=== PATIENT | female | born 1930 | race African-American/Black ===

== ENCOUNTER → 2016-04-21 | Outpatient (CLI) | payer MEDICARE, OTHER ==
[~2016-04-21] MED LIST: AML5T PO; BUDE160A3 INH; CITA-30 PO; CLON0.5T PO; CLOP75TA28 PO; FERR325T50 PO; INSUINJ37 SUBCUT; LEVAPOW IN
[2016-04-21 13:09] LABS: DEFINITIVE VIEW TRANSMISSION; Hemoglobin 9.5 g/dL (12.2-16.2); Mean Corpuscular Hemoglobin 28.4 pg (28.0-32.0); Mean Corpuscular Hgb Conc. 32.7 g/dL (32.0-36.0); Mean Corpuscular Volume 86.9 fL (80.0-100.0); Mean Platelet Volume 8.3 fL (7.4-10.4); Platelet Count (auto) 494 10^3/uL (140-450); White Blood Cell 8.8 10^3/uL (4.4-10.8)
[2016-04-21 13:24] LABS: Metamyelocytes % 0; Myelocytes % 0; Promyelocytes % 0; Reactive Lymphocytes 0; Red Cell Distribution Width 23.1 % (11.6-16.0)
[2016-04-21 13:45] LABS: Albumin 3.5 g/dL (3.4-5.0); BUN/Creatinine Ratio 13.7; Bilirubin, Total 0.5 mg/dL (0.2-1.0); Calcium 9.2 mg/dL (8.5-10.1); Potassium 5.1 mmol/L (3.5-5.1); Total Protein 7.7 g/dL (6.4-8.2); Uric Acid 10.5 mg/dL (2.6-6.0)
[2016-04-21 15:58] LABS: Anisocytosis Moderate; Platelet Estimate Increased; Tear Drop Cells FEW
[2016-04-21 15:59] LABS: Ovalocytes MODERATE
== END | disposition home or self-care (01) ==
LOC: LAB 12:12
DX: M25.50 Pain in unspecified joint (principal); M06.9 Rheumatoid arthritis, unspecified; M10.00 Idiopathic gout, unspecified site; I10 Essential (primary) hypertension; D64.9 Anemia, unspecified
CPT/HCPCS: 36415; 80053; 84550; 85007; 85027; 85652; 86141

== ENCOUNTER 2016-11-27 18:48 | Inpatient (IN) | payer MEDICARE, OTHER ==
[~2016-11-27] VITALS: Ht 167.6 cm; Wt 60.4 kg
[~2016-11-27 18:48] MED LIST changes: +FLUC100T PO; +LINE600T PO
[2016-11-27] MEDS ORDERED: SILVER SULFADIAZINE 1 % TOPICAL CREAM 50GM TOP ONE (19:45)
[2016-11-27 20:13] LABS: Basophils # (auto) 0.1 uL; Eosinophils # (auto) 1.1 uL; Hematocrit 22.2 % (36.0-46.0); Hemoglobin 7.5 g/dL (12.2-16.2); Lymphocytes # (auto) 1.2 uL; Lymphocytes % (auto) 9.6 % (10.0-50.0); Mean Corpuscular Hemoglobin 28.3 pg (28.0-32.0); Mean Corpuscular Hgb Conc. 33.8 g/dL (32.0-36.0); Mean Corpuscular Volume 83.7 fL (80.0-100.0); Mean Platelet Volume 7.2 fL (6.9-10.8); Monocytes # (auto) 1.5 uL; Monocytes % (auto) 12.1 % (0.0-12.0); Neutrophils # (auto) 8.3 uL; Neutrophils % (auto) 68.3 % (37.0-80.0); Nucleated Red Blood Cells % 0.1 %; Platelet Count (auto) 664 10^3/uL (140-450); Red Cell Distribution Width 21.6 % (11.8-14.3); White Blood Cell 12.2 10^3/uL (4.4-10.8)
[2016-11-27 20:58] LABS: Anisocytosis Moderate; Platelet Estimate Increased
[2016-11-27 20:59] LABS: Hypochromia Slight; Microcytosis Slight; Ovalocytes MODERATE
[2016-11-27 21:04] LABS: Albumin 2.7 g/dL (3.4-5.0); BUN/Creatinine Ratio 17.5; Bilirubin, Total 0.2 mg/dL (0.2-1.0); Calcium 9.2 mg/dL (8.5-10.1); Potassium 5.1 mmol/L (3.5-5.1); Total Protein 7.4 g/dL (6.4-8.2)
[2016-11-27] MEDS ORDERED: DEXTROSE (50%) 50ML SYRG IV PRN (23:45)
[2016-11-27] MEDS ORDERED: clonazePAM 0.5 MG TAB PO PRN (23:45)
[2016-11-27] MEDS ORDERED: VANCOMYCIN PER PHARMACY 0 MG IV SCH (23:45)
[2016-11-28] VITALS (11 sets, daily range): BP systolic 136–157; BP diastolic 59–68
[2016-11-28] MEDS ORDERED: VANCOMYCIN 1GM/250ML D5W 250 ML IV ONE (00:30)
[2016-11-28] MEDS: ACCU-CHEK COMFORT CURVE STRIP VI SCH ×2 (06:12→11:53)
[2016-11-28 06:17] LABS: Hematocrit 24.7 % (36.0-46.0); Hemoglobin 8.3 g/dL (12.2-16.2); Mean Platelet Volume 7.3 fL (6.9-10.8); Red Cell Distribution Width 19.7 % (11.8-14.3)
[2016-11-28] MEDS: InsuLIN REG 1unit/0.01ml Soln (100units/ml) SC SCH ×2 (06:17→11:53)
[2016-11-28 06:21] LABS: Mean Corpuscular Hgb Conc. 33.5 g/dL (32.0-36.0); Mean Corpuscular Volume 83.7 fL (80.0-100.0); Platelet Count (auto) 571 10^3/uL (140-450); White Blood Cell 13.2 10^3/uL (4.4-10.8)
[2016-11-28 06:31] LABS: Albumin 2.5 g/dL (3.4-5.0); Calcium 9.4 mg/dL (8.5-10.1); Potassium 4.8 mmol/L (3.5-5.1)
[2016-11-28 06:33] LABS: BUN/Creatinine Ratio 18.9
[2016-11-28 06:38] LABS: Bilirubin, Total 0.3 mg/dL (0.2-1.0); Total Protein 6.7 g/dL (6.4-8.2)
[2016-11-28] MEDS ORDERED: FERROUS SULFATE 325 MG TAB PO SCH (08:00)
[2016-11-28 09:32] LABS: Metamyelocytes % 0; Myelocytes % 0; Promyelocytes % 0; Reactive Lymphocytes 0
[2016-11-28 09:37] LABS: Ovalocytes MODERATE
[2016-11-28 09:38] LABS: Anisocytosis Slight; Platelet Estimate Increased; Tear Drop Cells FEW
[2016-11-28] MEDS ORDERED: CITALOPRAM HYDROBR 20 MG TAB PO SCH (10:00)
[2016-11-28] MEDS ORDERED: amLODIPine BESYLATE 5 MG TAB PO SCH (10:00)
[2016-11-28] MEDS ORDERED: LACTULOSE 20Gm/30ML SOLN PO ONE (12:00)
[2016-11-28] MEDS ORDERED: DOXYCYCLINE HYC 100MG/250ML 250 ML IV SCH (12:00)
[2016-11-28] MEDS ORDERED: EPOETIN ALFA 10,000 UNIT/1 ML VIAL SC ONE (13:00)
[2016-11-28] MEDS ORDERED: DOXY-216 PO (13:04)
[2016-11-28] MEDS ORDERED: AMO250C PO (13:04)
[2016-11-28 13:39] LABS: Urine Bilirubin Negative (Negative); Urine Blood Negative /uL (Negative); Urine Color Yellow (Yellow); Urine Glucose Normal (Normal); Urine Ketone Negative (Negative); Urine Nitrite Negative (Negative); Urine RBC 4 /hpf (0 - 4); Urine Squamous Epithelial Cell FEW /hpf (<5); Urine Urobilinogen Normal (Negative); Urine pH 5.5 (5.0-8.0)
[2016-11-28] MEDS ORDERED: AMOXICILLIN TRIHYDRATE 250 MG CAP PO SCH (14:00)
[2016-11-29] MEDS ORDERED: VANCOMYCIN 1GM/250ML D5W 250 ML IV SCH (06:00)
== END 2016-11-28 19:26 | disposition home health service (06) | DRG 812 ==
LOC: ER 18:48 → OVERFLOW 18:49 → CENTRAL 11-28 02:34
PROVIDERS: ADMIT Nurse Practitioner Family; ATTEND Internal Medicine
PROC: 30233N1 Transfusion of Nonautologous Red Blood Cells into Peripheral Vein, Percutaneous Approach (ICD-10-PCS; principal; 2016-11-28)
DX: D64.9 Anemia, unspecified (principal); E44.0 Moderate protein-calorie malnutrition; E11.22 Type 2 diabetes mellitus with diabetic chronic kidney disease; I13.0 Hypertensive heart and chronic kidney disease with heart failure and stage 1 through stage 4 chronic kidney disease, or unspecified chronic kidney disease; I50.9 Heart failure, unspecified; B37.49 Other urogenital candidiasis; D63.8 Anemia in other chronic diseases classified elsewhere; J44.9 Chronic obstructive pulmonary disease, unspecified; F32.9 Major depressive disorder, single episode, unspecified; K59.00 Constipation, unspecified; A49.02 Methicillin resistant Staphylococcus aureus infection, unspecified site; S81.001A Unspecified open wound, right knee, initial encounter; N18.3 Chronic kidney disease, stage 3 (moderate); X58.XXXA Exposure to other specified factors, initial encounter; M19.90 Unspecified osteoarthritis, unspecified site; Z79.51 Long term (current) use of inhaled steroids; Z79.4 Long term (current) use of insulin; Z79.899 Other long term (current) drug therapy; Z80.0 Family history of malignant neoplasm of digestive organs; Z80.1 Family history of malignant neoplasm of trachea, bronchus and lung; Z80.3 Family history of malignant neoplasm of breast; Z80.41 Family history of malignant neoplasm of ovary; Z80.8 Family history of malignant neoplasm of other organs or systems; Z81.8 Family history of other mental and behavioral disorders; Z82.0 Family history of epilepsy and other diseases of the nervous system; Z82.3 Family history of stroke; Z82.49 Family history of ischemic heart disease and other diseases of the circulatory system; Z82.5 Family history of asthma and other chronic lower respiratory diseases; Z82.62 Family history of osteoporosis; Z83.3 Family history of diabetes mellitus; Z68.21 Body mass index [BMI] 21.0-21.9, adult; Y93.89 Activity, other specified; Y92.89 Other specified places as the place of occurrence of the external cause; Y99.8 Other external cause status
CPT/HCPCS: 99285; S9538; 36415; 36430; 80053; 80202; 81001; 82962; 85007; 85025; 85027; 86850; 86900; 86901; 86920; 87077; 87081; 87186; 87205; J0885; J1815; J3490

== ENCOUNTER 2017-02-20 17:39 | Inpatient (IN) | payer MEDICARE, OTHER ==
[~2017-02-20] VITALS: Ht 167.6 cm; Wt 51.0 kg
[~2017-02-20 17:39] MED LIST changes: -BUDE160A3 INH; +CAR125T PO; -CITA-30 PO; +CITA-73 PO; +DOXY-216 PO; -FLUC100T PO; -LEVAPOW IN; -LINE600T PO; +PANT40TA2 PO; +TRAM50TA2 PO
[2017-02-20 19:13] LABS: Basophils # (auto) 0 uL; Basophils % (auto) 0.6 % (0.0-2.0); Eosinophils # (auto) 0 uL; Eosinophils % (auto) 0.5 % (0.0-7.0); Hematocrit 26.5 % (36.0-46.0); Hemoglobin 8.9 g/dL (12.2-16.2); Lymphocytes # (auto) 0.6 uL; Lymphocytes % (auto) 7.8 % (10.0-50.0); Mean Corpuscular Hemoglobin 29.4 pg (28.0-32.0); Mean Corpuscular Hgb Conc. 33.7 g/dL (32.0-36.0); Mean Corpuscular Volume 87.5 fL (80.0-100.0); Monocytes # (auto) 0.9 uL; Neutrophils # (auto) 6.1 uL; Neutrophils % (auto) 79.1 % (37.0-80.0); Nucleated Red Blood Cells % 0.3 %; Platelet Count (auto) 506 10^3/uL (140-450); Red Blood Cells 3.03 10^6/uL (4.0-5.20); White Blood Cell 7.7 10^3/uL (4.4-10.8)
[2017-02-20 19:15] LABS: Red Cell Distribution Width 20.3 % (11.8-14.3)
[2017-02-20 19:25] LABS: Albumin 2.6 g/dL (3.4-5.0); BUN/Creatinine Ratio 30.7; Bilirubin, Total 0.4 mg/dL (0.2-1.0); Calcium 8.9 mg/dL (8.5-10.1); Potassium 4.3 mmol/L (3.5-5.1); Total Protein 7.8 g/dL (6.4-8.2)
[2017-02-20] MEDS ORDERED: SODIUM CHLORIDE 0.9% 1,000 ML IV ONE (20:00)
[2017-02-20 20:21] LABS: INR 1.32 (0.9-1.15); Partial Thromboplastin Time 33.1 sec (22.64-33.71); Prothrombin Time 14.4 sec (9.37-12.3)
[2017-02-20] MEDS ORDERED: ONDANSETRON HCL 4 MG/2 ML VIAL IV ONE (23:30)
[2017-02-20] MEDS ORDERED: ENOXAPARIN SOD 100 MG/1 ML SYRINGE SC ONE (23:30)
[2017-02-20] MEDS ORDERED: MORPHINE SULFATE 4 MG/ML SYR/VIAL IV ONE (23:30)
[2017-02-21] MEDS ORDERED: ACETAMINOPHEN 500 MG TAB PO PRN (03:45)
[2017-02-21] MEDS ORDERED: ONDANSETRON HCL 4 MG/2 ML VIAL IV PRN (03:45)
[2017-02-21 04:58] LABS: Hemoglobin 8.2 g/dL (12.2-16.2); Lymphocytes # (auto) 0.7 uL; Mean Corpuscular Hemoglobin 29.6 pg (28.0-32.0)
[2017-02-21 05:00] LABS: Mean Corpuscular Hgb Conc. 33.7 g/dL (32.0-36.0)
[2017-02-21 05:17] LABS: Basophils # (auto) 0.1 uL; Basophils % (auto) 0.6 % (0.0-2.0); Eosinophils # (auto) 0.1 uL; Eosinophils % (auto) 1.5 % (0.0-7.0); Monocytes # (auto) 1.2 uL; Neutrophils % (auto) 76.9 % (37.0-80.0); Nucleated Red Blood Cells % 0.4 %; White Blood Cell 9.1 10^3/uL (4.4-10.8)
[2017-02-21 05:18] LABS: BUN/Creatinine Ratio 33.3; Calcium 8.7 mg/dL (8.5-10.1); Hematocrit 24.3 % (36.0-46.0); Mean Corpuscular Volume 88.2 fL (80.0-100.0); Platelet Count (auto) 438 10^3/uL (140-450); Potassium 3.8 mmol/L (3.5-5.1); Red Blood Cells 2.76 10^6/uL (4.0-5.20); Red Cell Distribution Width 19.9 % (11.8-14.3)
[2017-02-21] MEDS ORDERED: FUROSEMIDE 40 MG/4 ML VIAL IV ONE (07:45)
[2017-02-21 09:16] LABS: Urine Amorphous Crystal FEW /hpf (None Seen); Urine Bacteria MANY /hpf (None Seen); Urine Blood Negative /uL (Negative); Urine Mucus FEW (None Seen); Urine Specific Gravity 1.016 (1.001-1.035); Urine WBC 2 /hpf (0 - 5)
[2017-02-21] MEDS: amLODIPine BESYLATE 5 MG TAB PO SCH (10:16)
[2017-02-21] MEDS: ASPirin-EC 81 mg tab PO SCH (10:16)
[2017-02-21] MEDS: CARVEDILOL 12.5 MG TAB PO SCH ×2 (10:16→22:30)
[2017-02-21 21:48] LABS: Hematocrit 24.2 % (36.0-46.0); Hemoglobin 8.3 g/dL (12.2-16.2)
[2017-02-22 06:13] LABS: Basophils # (auto) 0 uL; Basophils % (auto) 0.3 % (0.0-2.0); Eosinophils # (auto) 0.1 uL; Hemoglobin 8.1 g/dL (12.2-16.2); Lymphocytes # (auto) 0.6 uL; White Blood Cell 10.1 10^3/uL (4.4-10.8)
[2017-02-22 06:16] LABS: Eosinophils % (auto) 0.9 % (0.0-7.0); Hematocrit 23.6 % (36.0-46.0); Lymphocytes % (auto) 5.7 % (10.0-50.0); Mean Corpuscular Hemoglobin 29.2 pg (28.0-32.0); Mean Corpuscular Hgb Conc. 34.5 g/dL (32.0-36.0); Mean Corpuscular Volume 84.7 fL (80.0-100.0); Monocytes % (auto) 9.9 % (0.0-12.0); Neutrophils # (auto) 8.4 uL; Neutrophils % (auto) 83.2 % (37.0-80.0); Nucleated Red Blood Cells % 0.2 %; Platelet Count (auto) 435 10^3/uL (140-450); Red Blood Cells 2.78 10^6/uL (4.0-5.20)
[2017-02-22 06:42] LABS: Albumin 2.3 g/dL (3.4-5.0); BUN/Creatinine Ratio 29.3; Calcium 8.5 mg/dL (8.5-10.1); Potassium 3.9 mmol/L (3.5-5.1)
[2017-02-22 06:44] LABS: Bilirubin, Total 0.3 mg/dL (0.2-1.0); Red Cell Distribution Width 20.2 % (11.8-14.3)
[2017-02-22] MEDS: FUROSEMIDE 40 MG/4 ML VIAL IV SCH (09:43)
[2017-02-22] MEDS: CARVEDILOL 12.5 MG TAB PO SCH ×2 (09:44→21:04)
[2017-02-22] MEDS: ASPirin-EC 81 mg tab PO SCH (09:44)
[2017-02-22] MEDS: amLODIPine BESYLATE 5 MG TAB PO SCH (09:44)
[2017-02-22] MEDS ORDERED: DEXTROSE (50%) 50ML SYRG IV PRN (13:30)
[2017-02-22] MEDS: SODIUM CHLOR 0.9% PF (SALINE LOCK) 10ML VIAL IV SCH ×2 (14:08→21:04)
[2017-02-22] MEDS: ACCU-CHEK COMFORT CURVE STRIP VI SCH ×2 (17:40→21:18)
[2017-02-22] MEDS: InsuLIN REG 1unit/0.01ml Soln (100units/ml) SC SCH ×2 (17:42→21:17)
[2017-02-22 21:00] VITALS: BP 154/106
[2017-02-22] MEDS: HYDROcodone-ACET 5/325MG TAB PO PRN (21:18)
[2017-02-22 23:40] VITALS: BP 154/106
[2017-02-23 05:27] VITALS: BP 141/58
[2017-02-23] MEDS: SODIUM CHLOR 0.9% PF (SALINE LOCK) 10ML VIAL IV SCH ×3 (05:38→23:25)
[2017-02-23] MEDS: InsuLIN REG 1unit/0.01ml Soln (100units/ml) SC SCH ×4 (05:38→23:29)
[2017-02-23] MEDS: ACCU-CHEK COMFORT CURVE STRIP VI SCH ×4 (05:38→23:28)
[2017-02-23] MEDS: HYDROcodone-ACET 5/325MG TAB PO PRN ×2 (05:39→21:12)
[2017-02-23 07:46] LABS: Basophils % (auto) 0.4 % (0.0-2.0); Eosinophils # (auto) 0.1 uL; Hematocrit 24.3 % (36.0-46.0); Hemoglobin 8.2 g/dL (12.2-16.2); Mean Corpuscular Volume 85.7 fL (80.0-100.0); Monocytes # (auto) 1.1 uL; Neutrophils # (auto) 10.6 uL; Nucleated Red Blood Cells % 0.1 %
[2017-02-23 07:48] LABS: Basophils # (auto) 0.1 uL; Eosinophils % (auto) 0.9 % (0.0-7.0); Lymphocytes # (auto) 0.6 uL; Lymphocytes % (auto) 4.7 % (10.0-50.0); Mean Corpuscular Hemoglobin 28.7 pg (28.0-32.0); Mean Corpuscular Hgb Conc. 33.6 g/dL (32.0-36.0); Monocytes % (auto) 8.5 % (0.0-12.0); Neutrophils % (auto) 85.5 % (37.0-80.0); Platelet Count (auto) 474 10^3/uL (140-450); Red Blood Cells 2.84 10^6/uL (4.0-5.20); Red Cell Distribution Width 19.5 % (11.8-14.3); White Blood Cell 12.4 10^3/uL (4.4-10.8)
[2017-02-23 08:54] LABS: Albumin 2.4 g/dL (3.4-5.0); BUN/Creatinine Ratio 28.5; Bilirubin, Total 0.4 mg/dL (0.2-1.0); Calcium 8.6 mg/dL (8.5-10.1); Potassium 3.9 mmol/L (3.5-5.1); Total Protein 7.2 g/dL (6.4-8.2)
[2017-02-23 09:00] VITALS: BP 148/63
[2017-02-23] MEDS: ASPirin-EC 81 mg tab PO SCH (10:00)
[2017-02-23] MEDS: CARVEDILOL 12.5 MG TAB PO SCH ×2 (11:07→23:26)
[2017-02-23] MEDS: amLODIPine BESYLATE 5 MG TAB PO SCH (11:08)
[2017-02-23] MEDS: FUROSEMIDE 40 MG/4 ML VIAL IV SCH (11:09)
[2017-02-23 13:00] VITALS: BP 144/71
[2017-02-23 16:43] VITALS: BP 143/60
[2017-02-23 22:00] VITALS: BP 120/52
[2017-02-23] MEDS: ATORVASTATIN 20 MG TAB PO SCH (23:28)
[2017-02-24 05:10] VITALS: BP 118/60
[2017-02-24 06:47] LABS: Basophils # (auto) 0.1 uL; Basophils % (auto) 0.5 % (0.0-2.0); Eosinophils # (auto) 0.2 uL; Eosinophils % (auto) 2.1 % (0.0-7.0); Nucleated Red Blood Cells % 0.1 %; Red Blood Cells 2.82 10^6/uL (4.0-5.20)
[2017-02-24 06:49] LABS: Hematocrit 24.1 % (36.0-46.0); Hemoglobin 8.2 g/dL (12.2-16.2); Lymphocytes # (auto) 0.7 uL; Lymphocytes % (auto) 6.6 % (10.0-50.0); Mean Corpuscular Hemoglobin 28.9 pg (28.0-32.0); Mean Corpuscular Hgb Conc. 33.8 g/dL (32.0-36.0); Mean Corpuscular Volume 85.6 fL (80.0-100.0); Monocytes # (auto) 1.2 uL; Monocytes % (auto) 10.6 % (0.0-12.0); Neutrophils # (auto) 8.7 uL; Neutrophils % (auto) 80.2 % (37.0-80.0); Platelet Count (auto) 452 10^3/uL (140-450); Red Cell Distribution Width 19.9 % (11.8-14.3); White Blood Cell 10.9 10^3/uL (4.4-10.8)
[2017-02-24] MEDS: ACCU-CHEK COMFORT CURVE STRIP VI SCH ×4 (06:56→22:29)
[2017-02-24] MEDS: InsuLIN REG 1unit/0.01ml Soln (100units/ml) SC SCH ×4 (06:56→22:00)
[2017-02-24 07:07] LABS: BUN/Creatinine Ratio 27.5; Calcium 8.8 mg/dL (8.5-10.1); Potassium 3.8 mmol/L (3.5-5.1)
[2017-02-24 09:00] VITALS: BP 127/74
[2017-02-24] MEDS: amLODIPine BESYLATE 5 MG TAB PO SCH (09:50)
[2017-02-24] MEDS: SODIUM CHLOR 0.9% PF (SALINE LOCK) 10ML VIAL IV SCH ×3 (09:50→22:29)
[2017-02-24] MEDS: CARVEDILOL 12.5 MG TAB PO SCH ×2 (09:50→22:00)
[2017-02-24] MEDS ORDERED: FUROSEMIDE 40 MG TAB PO SCH (10:00)
[2017-02-24 12:57] VITALS: BP 139/57
[2017-02-24] MEDS: HYDROcodone-ACET 5/325MG TAB PO PRN (15:18)
[2017-02-24 17:00] VITALS: BP 139/62
[2017-02-24 22:00] VITALS: BP 117/58
[2017-02-24] MEDS: ATORVASTATIN 20 MG TAB PO SCH (22:29)
[2017-02-25 05:00] VITALS: BP 149/59
[2017-02-25] MEDS: ACCU-CHEK COMFORT CURVE STRIP VI SCH ×4 (05:20→21:56)
[2017-02-25] MEDS: InsuLIN REG 1unit/0.01ml Soln (100units/ml) SC SCH ×4 (05:20→21:58)
[2017-02-25] MEDS: SODIUM CHLOR 0.9% PF (SALINE LOCK) 10ML VIAL IV SCH ×3 (05:20→21:55)
[2017-02-25] MEDS: HYDROcodone-ACET 5/325MG TAB PO PRN (05:30)
[2017-02-25 08:00] VITALS: BP 140/67
[2017-02-25] MEDS: CARVEDILOL 12.5 MG TAB PO SCH ×2 (10:45→21:58)
[2017-02-25] MEDS: amLODIPine BESYLATE 5 MG TAB PO SCH (10:45)
[2017-02-25] MEDS ORDERED: LACTULOSE 20Gm/30ML SOLN PO PRN (12:45)
[2017-02-25 13:00] VITALS: BP 138/71
[2017-02-25 13:13] LABS: Red Cell Distribution Width 19.8 % (11.8-14.3)
[2017-02-25 13:15] LABS: Hematocrit 26.6 % (36.0-46.0); Hemoglobin 8.7 g/dL (12.2-16.2); Mean Corpuscular Hgb Conc. 32.7 g/dL (32.0-36.0); Mean Corpuscular Volume 85.5 fL (80.0-100.0); Platelet Count (auto) 547 10^3/uL (140-450); Red Blood Cells 3.11 10^6/uL (4.0-5.20); White Blood Cell 11.4 10^3/uL (4.4-10.8)
[2017-02-25 13:17] LABS: Basophils % (manual) 0 (0.0-2.0); Blast Cells 0; Metamyelocytes % 0; Myelocytes % 0; Promyelocytes % 0; Reactive Lymphocytes 0
[2017-02-25 14:33] LABS: Band Neutrophils % (manual) 1; Lymphocytes % (manual) 10 (10.0-50.0); Monocytes % (manual) 6 (0-12)
[2017-02-25 14:34] LABS: Eosinophils % (manual) 7 (0-7)
[2017-02-25 16:56] VITALS: BP 155/94
[2017-02-25] MEDS: ATORVASTATIN 20 MG TAB PO SCH (21:55)
[2017-02-25 22:05] VITALS: BP 113/46
[2017-02-26] VITALS (7 sets, daily range): BP systolic 133–177; BP diastolic 48–68
[2017-02-26] MEDS: PANTOPRAZOLE 40 MG/10 ML VIAL IV SCH ×3 (04:12→21:30)
[2017-02-26 04:49] LABS: Hemoglobin 8.7 g/dL (12.2-16.2); White Blood Cell 14.8 10^3/uL (4.4-10.8)
[2017-02-26 04:53] LABS: Hematocrit 25.7 % (36.0-46.0); Mean Corpuscular Hemoglobin 28.8 pg (28.0-32.0); Mean Corpuscular Hgb Conc. 33.7 g/dL (32.0-36.0); Mean Corpuscular Volume 85.5 fL (80.0-100.0); Platelet Count (auto) 579 10^3/uL (140-450)
[2017-02-26 05:05] LABS: Basophils % (manual) 0 (0.0-2.0); Blast Cells 0; Metamyelocytes % 0; Myelocytes % 0; Promyelocytes % 0; Reactive Lymphocytes 0; Red Cell Distribution Width 20.1 % (11.8-14.3)
[2017-02-26 06:19] LABS: Band Neutrophils % (manual) 1; Eosinophils % (manual) 2 (0-7); Lymphocytes % (manual) 9 (10.0-50.0); Monocytes % (manual) 12 (0-12)
[2017-02-26] MEDS: ACCU-CHEK COMFORT CURVE STRIP VI SCH ×4 (06:32→21:36)
[2017-02-26] MEDS: InsuLIN REG 1unit/0.01ml Soln (100units/ml) SC SCH ×4 (06:32→21:37)
[2017-02-26] MEDS: SODIUM CHLOR 0.9% PF (SALINE LOCK) 10ML VIAL IV SCH ×3 (06:32→21:30)
[2017-02-26] MEDS: Boost Glucose Control 8 Ounces PO SCH ×3 (09:01→18:32)
[2017-02-26] MEDS ORDERED: GOLYTELY 4L KIT PO ONE (12:00)
[2017-02-26] MEDS: CARVEDILOL 12.5 MG TAB PO SCH ×2 (12:01→21:31)
[2017-02-26] MEDS: amLODIPine BESYLATE 5 MG TAB PO SCH (12:02)
[2017-02-26] MEDS ORDERED: cefTRIAXone 1GM/10ml IVPUSH 10 ML IV ONE (13:00)
[2017-02-26 13:28] LABS: Albumin 2.4 g/dL (3.4-5.0); BUN/Creatinine Ratio 28.7; Bilirubin, Total 0.4 mg/dL (0.2-1.0); Calcium 9.1 mg/dL (8.5-10.1); Potassium 3.8 mmol/L (3.5-5.1); Total Protein 7.5 g/dL (6.4-8.2)
[2017-02-26] MEDS: SODIUM CHLORIDE 0.9% 1,000 ML IV SCH (14:39)
[2017-02-26] MEDS: ATORVASTATIN 20 MG TAB PO SCH (21:31)
[2017-02-27] MEDS: ACCU-CHEK COMFORT CURVE STRIP VI SCH ×4 (06:37→22:11)
[2017-02-27] MEDS: InsuLIN REG 1unit/0.01ml Soln (100units/ml) SC SCH ×4 (06:37→22:12)
[2017-02-27] MEDS: SODIUM CHLOR 0.9% PF (SALINE LOCK) 10ML VIAL IV SCH ×3 (06:38→22:09)
[2017-02-27] MEDS: SODIUM CHLORIDE 0.9% 1,000 ML IV SCH ×2 (06:38→08:21)
[2017-02-27 06:54] LABS: Basophils # (auto) 0.1 uL; Basophils % (auto) 0.6 % (0.0-2.0); Eosinophils # (auto) 0.4 uL; White Blood Cell 12.5 10^3/uL (4.4-10.8)
[2017-02-27 06:56] LABS: Eosinophils % (auto) 3.4 % (0.0-7.0); Hematocrit 22.3 % (36.0-46.0); Hemoglobin 7.9 g/dL (12.2-16.2); Lymphocytes # (auto) 0.8 uL; Lymphocytes % (auto) 6.3 % (10.0-50.0); Mean Corpuscular Hemoglobin 30.1 pg (28.0-32.0); Mean Corpuscular Hgb Conc. 35.3 g/dL (32.0-36.0); Mean Corpuscular Volume 85.4 fL (80.0-100.0); Monocytes # (auto) 1.4 uL; Neutrophils # (auto) 9.8 uL; Neutrophils % (auto) 78.7 % (37.0-80.0); Platelet Count (auto) 527 10^3/uL (140-450); Red Blood Cells 2.61 10^6/uL (4.0-5.20); Red Cell Distribution Width 19.8 % (11.8-14.3)
[2017-02-27] MEDS: Boost Glucose Control 8 Ounces PO SCH ×3 (07:40→16:53)
[2017-02-27 08:00] VITALS: BP 162/61
[2017-02-27] MEDS: cefTRIAXone 1GM/10ml IVPUSH 10 ML IV SCH (08:21)
[2017-02-27 09:00] VITALS: BP 162/61
[2017-02-27] MEDS: PANTOPRAZOLE 40 MG/10 ML VIAL IV SCH ×2 (09:35→22:09)
[2017-02-27] MEDS: CARVEDILOL 12.5 MG TAB PO SCH ×2 (09:35→22:09)
[2017-02-27] MEDS: amLODIPine BESYLATE 5 MG TAB PO SCH (09:36)
[2017-02-27] MEDS ORDERED: MIDAZOLAM HCL 1MG/1ML-2 ML VIAL ONE (12:16)
[2017-02-27] MEDS ORDERED: fentaNYL CITRATE 100 MCG/2 ML VL ONE (12:16)
[2017-02-27] MEDS ORDERED: DEXAMETHASONE SOD PHOS 10MG/1ML VIAL INJ ONE (12:35)
[2017-02-27] MEDS ORDERED: PROPOFOL 10 MG/ML 20 ML IV ONE (12:35)
[2017-02-27] MEDS ORDERED: KETOROLAC TROMETH 30 MG/ML 1ML VIAL IV ONE (12:45)
[2017-02-27] MEDS ORDERED: MIDAZOLAM HCL 1MG/1ML-2 ML VIAL IV PRN (12:45)
[2017-02-27] MEDS ORDERED: ePHEDrine SULFATE 50 MG/ML AMP IV PRN (12:45)
[2017-02-27] MEDS ORDERED: MORPHINE SULF INJ 2 MG/ML SYRINGE 1ML IV PRN (12:45)
[2017-02-27] MEDS ORDERED: LABETALOL HCL 5 MG/ML 4ML SYRINGE IV PRN (12:45)
[2017-02-27] MEDS ORDERED: HYDROmorphone HCL 2 MG/ML VL IV PRN (12:45)
[2017-02-27] MEDS ORDERED: ACCU-CHEK COMFORT CURVE STRIP VI ONE (12:45)
[2017-02-27] MEDS ORDERED: ONDANSETRON HCL 4 MG/2 ML VIAL IV ONE (12:45)
[2017-02-27 17:00] VITALS: BP 145/58
[2017-02-27 22:00] VITALS: BP 146/61
[2017-02-27] MEDS: ATORVASTATIN 20 MG TAB PO SCH (22:09)
[2017-02-28 05:00] VITALS: BP 156/73
[2017-02-28] MEDS: SODIUM CHLOR 0.9% PF (SALINE LOCK) 10ML VIAL IV SCH ×3 (05:42→21:43)
[2017-02-28] MEDS: ACCU-CHEK COMFORT CURVE STRIP VI SCH ×4 (05:43→21:44)
[2017-02-28] MEDS: InsuLIN REG 1unit/0.01ml Soln (100units/ml) SC SCH ×4 (06:00→21:44)
[2017-02-28 06:50] LABS: Mean Corpuscular Hgb Conc. 33.9 g/dL (32.0-36.0)
[2017-02-28 06:53] LABS: Hematocrit 29.6 % (36.0-46.0); Mean Corpuscular Hemoglobin 29.1 pg (28.0-32.0); Mean Corpuscular Volume 85.8 fL (80.0-100.0); Platelet Count (auto) 556 10^3/uL (140-450); Red Blood Cells 3.45 10^6/uL (4.0-5.20); Red Cell Distribution Width 18.9 % (11.8-14.3); White Blood Cell 14.3 10^3/uL (4.4-10.8)
[2017-02-28 06:58] LABS: Basophils % (manual) 0 (0.0-2.0); Blast Cells 0; Eosinophils % (manual) 0 (0-7); Myelocytes % 0; Promyelocytes % 0; Reactive Lymphocytes 0
[2017-02-28 07:03] LABS: BUN/Creatinine Ratio 27.3; Potassium 3.6 mmol/L (3.5-5.1)
[2017-02-28] MEDS: Boost Glucose Control 8 Ounces PO SCH ×3 (07:10→17:36)
[2017-02-28] MEDS: cefTRIAXone 1GM/10ml IVPUSH 10 ML IV SCH (07:56)
[2017-02-28 08:00] VITALS: BP 161/85
[2017-02-28 08:32] LABS: Band Neutrophils % (manual) 3; Lymphocytes % (manual) 6 (10.0-50.0); Monocytes % (manual) 6 (0-12)
[2017-02-28 08:33] LABS: Metamyelocytes % 2
[2017-02-28] MEDS: FAMOTIDINE 20 MG TAB PO SCH (09:19)
[2017-02-28] MEDS: amLODIPine BESYLATE 5 MG TAB PO SCH (09:20)
[2017-02-28] MEDS: CARVEDILOL 12.5 MG TAB PO SCH ×2 (09:20→21:44)
[2017-02-28 09:36] VITALS: BP 161/85
[2017-02-28 13:00] VITALS: BP 140/101
[2017-02-28 16:53] VITALS: BP 147/70
[2017-02-28] MEDS: ATORVASTATIN 20 MG TAB PO SCH (21:44)
[2017-02-28 22:00] VITALS: BP 146/81
[2017-03-01 05:00] VITALS: BP 159/77
[2017-03-01] MEDS: SODIUM CHLOR 0.9% PF (SALINE LOCK) 10ML VIAL IV SCH ×3 (05:45→22:59)
[2017-03-01] MEDS: ACCU-CHEK COMFORT CURVE STRIP VI SCH ×5 (05:45→22:00)
[2017-03-01] MEDS: InsuLIN REG 1unit/0.01ml Soln (100units/ml) SC SCH ×5 (05:46→22:00)
[2017-03-01 06:33] LABS: Basophils # (auto) 0.1 uL; Basophils % (auto) 0.4 % (0.0-2.0); Hemoglobin 9.6 g/dL (12.2-16.2); Nucleated Red Blood Cells % 0.1 %
[2017-03-01 06:36] LABS: Eosinophils # (auto) 0.5 uL; Eosinophils % (auto) 2.9 % (0.0-7.0); Hematocrit 28.6 % (36.0-46.0); Lymphocytes % (auto) 6.1 % (10.0-50.0); Mean Corpuscular Hemoglobin 28.4 pg (28.0-32.0); Mean Corpuscular Hgb Conc. 33.6 g/dL (32.0-36.0); Mean Corpuscular Volume 84.7 fL (80.0-100.0); Monocytes % (auto) 11.9 % (0.0-12.0); Neutrophils # (auto) 13.3 uL; Neutrophils % (auto) 78.7 % (37.0-80.0); Platelet Count (auto) 578 10^3/uL (140-450); Red Blood Cells 3.37 10^6/uL (4.0-5.20); Red Cell Distribution Width 18.5 % (11.8-14.3); White Blood Cell 16.9 10^3/uL (4.4-10.8)
[2017-03-01] MEDS: Boost Glucose Control 8 Ounces PO SCH ×3 (08:24→17:17)
[2017-03-01 09:00] VITALS: BP 148/70
[2017-03-01] MEDS: cefTRIAXone 1GM/10ml IVPUSH 10 ML IV SCH (09:44)
[2017-03-01] MEDS: FAMOTIDINE 20 MG TAB PO SCH (09:45)
[2017-03-01] MEDS ORDERED: SULFAMETHOX W/TRIMETH(800/160MG) DS TAB PO ONE (11:15)
[2017-03-01] MEDS: CARVEDILOL 12.5 MG TAB PO SCH ×2 (12:17→22:59)
[2017-03-01] MEDS: amLODIPine BESYLATE 5 MG TAB PO SCH (12:17)
[2017-03-01 13:58] VITALS: BP 150/75
[2017-03-01 17:00] VITALS: BP 151/76
[2017-03-01 21:53] VITALS: BP 145/76
[2017-03-01] MEDS: SULFAMETHOX W/TRIMETH(800/160MG) DS TAB PO SCH (22:59)
[2017-03-01] MEDS: ATORVASTATIN 20 MG TAB PO SCH (23:00)
[2017-03-02 05:08] VITALS: BP 122/70
[2017-03-02 06:29] LABS: Basophils # (auto) 0.1 uL; Mean Corpuscular Volume 84.8 fL (80.0-100.0); Nucleated Red Blood Cells % 0.2 %
[2017-03-02 06:32] LABS: Basophils % (auto) 0.5 % (0.0-2.0); Eosinophils # (auto) 0.4 uL; Eosinophils % (auto) 3.3 % (0.0-7.0); Hematocrit 28.4 % (36.0-46.0); Hemoglobin 9.6 g/dL (12.2-16.2); Lymphocytes # (auto) 0.9 uL; Lymphocytes % (auto) 6.7 % (10.0-50.0); Mean Corpuscular Hemoglobin 28.6 pg (28.0-32.0); Mean Corpuscular Hgb Conc. 33.7 g/dL (32.0-36.0); Monocytes # (auto) 2.2 uL; Monocytes % (auto) 16.8 % (0.0-12.0); Neutrophils # (auto) 9.3 uL; Neutrophils % (auto) 72.7 % (37.0-80.0); Platelet Count (auto) 550 10^3/uL (140-450); Red Blood Cells 3.35 10^6/uL (4.0-5.20); Red Cell Distribution Width 18.5 % (11.8-14.3); White Blood Cell 12.9 10^3/uL (4.4-10.8)
[2017-03-02 06:52] LABS: BUN/Creatinine Ratio 21.9; Calcium 8.5 mg/dL (8.5-10.1); Potassium 3.4 mmol/L (3.5-5.1)
[2017-03-02] MEDS: InsuLIN REG 1unit/0.01ml Soln (100units/ml) SC SCH ×2 (07:00→11:42)
[2017-03-02] MEDS: SODIUM CHLOR 0.9% PF (SALINE LOCK) 10ML VIAL IV SCH ×2 (07:08→13:36)
[2017-03-02] MEDS: ACCU-CHEK COMFORT CURVE STRIP VI SCH ×2 (07:09→11:16)
[2017-03-02] MEDS: Boost Glucose Control 8 Ounces PO SCH ×2 (07:43→11:17)
[2017-03-02 08:00] VITALS: BP 130/64
[2017-03-02 09:00] VITALS: BP 130/64
[2017-03-02] MEDS: SULFAMETHOX W/TRIMETH(800/160MG) DS TAB PO SCH (09:06)
[2017-03-02] MEDS: FAMOTIDINE 20 MG TAB PO SCH (09:06)
[2017-03-02] MEDS: amLODIPine BESYLATE 5 MG TAB PO SCH (09:07)
[2017-03-02] MEDS: CARVEDILOL 12.5 MG TAB PO SCH (09:07)
[2017-03-02 13:00] VITALS: BP 121/75
== END 2017-03-02 16:40 | disposition hospice, home (50) | DRG 871 ==
LOC: ER 17:39 → EDBD 17:39 → TELE 17:40 → TELE-WESTW 02-22 20:31 → WEST WING 02-28 16:12
PROVIDERS: ADMIT Nurse Practitioner Family; ATTEND Internal Medicine
PROC: 30233N1 Transfusion of Nonautologous Red Blood Cells into Peripheral Vein, Percutaneous Approach (ICD-10-PCS; 2017-02-27)
PROC: 0W3P8ZZ Control Bleeding in Gastrointestinal Tract, Via Natural or Artificial Opening Endoscopic (ICD-10-PCS; principal; 2017-02-27 12:28)
DX: A41.9 Sepsis, unspecified organism (principal); I50.33 Acute on chronic diastolic (congestive) heart failure; E44.0 Moderate protein-calorie malnutrition; E11.22 Type 2 diabetes mellitus with diabetic chronic kidney disease; K62.6 Ulcer of anus and rectum; I42.0 Dilated cardiomyopathy; E11.65 Type 2 diabetes mellitus with hyperglycemia; N39.0 Urinary tract infection, site not specified; I13.0 Hypertensive heart and chronic kidney disease with heart failure and stage 1 through stage 4 chronic kidney disease, or unspecified chronic kidney disease; K92.2 Gastrointestinal hemorrhage, unspecified; K80.20 Calculus of gallbladder without cholecystitis without obstruction; I11.0 Hypertensive heart disease with heart failure; K44.9 Diaphragmatic hernia without obstruction or gangrene; Z51.5 Encounter for palliative care; B95.62 Methicillin resistant Staphylococcus aureus infection as the cause of diseases classified elsewhere; D64.9 Anemia, unspecified; E78.5 Hyperlipidemia, unspecified; J44.9 Chronic obstructive pulmonary disease, unspecified; K62.3 Rectal prolapse; M06.9 Rheumatoid arthritis, unspecified; N18.3 Chronic kidney disease, stage 3 (moderate); I25.10 Atherosclerotic heart disease of native coronary artery without angina pectoris; Z82.0 Family history of epilepsy and other diseases of the nervous system; Z81.8 Family history of other mental and behavioral disorders; Z80.8 Family history of malignant neoplasm of other organs or systems; Z82.3 Family history of stroke; Z80.3 Family history of malignant neoplasm of breast; Z80.1 Family history of malignant neoplasm of trachea, bronchus and lung; Z95.5 Presence of coronary angioplasty implant and graft; Z79.899 Other long term (current) drug therapy; Z83.3 Family history of diabetes mellitus; Z82.62 Family history of osteoporosis; Z82.49 Family history of ischemic heart disease and other diseases of the circulatory system; Z79.4 Long term (current) use of insulin; Z80.0 Family history of malignant neoplasm of digestive organs; Z80.41 Family history of malignant neoplasm of ovary; Z82.5 Family history of asthma and other chronic lower respiratory diseases; Z87.81 Personal history of (healed) traumatic fracture; Z90.10 Acquired absence of unspecified breast and nipple; Z82.61 Family history of arthritis; Z83.49 Family history of other endocrine, nutritional and metabolic diseases; Z84.1 Family history of disorders of kidney and ureter; Z80.42 Family history of malignant neoplasm of prostate
CPT/HCPCS: 36415; 45378; 51702; 71045; 74176; 76856; 80048; 80053; 81001; 82962; 83690; 83880; 84484; 85007; 85014; 85018; 85025; 85027; 85610; 85730; 86850; 86900; 86901; 86920; 87086; 87088; 87186; 93005; 96361; 96372; 96374; 96375; 97116; 97530; C9113; J1100; J1815; J2250; J2405; J2704

== ENCOUNTER 2019-06-26 15:20 | Inpatient (IN) | payer MEDICARE, OTHER ==
[~2019-06-26] VITALS: Ht 154.9 cm; Wt 68.4 kg
[~2019-06-26 15:20] MED LIST changes: -DOXY-216 PO
[2019-06-26] MEDS ORDERED: SODIUM CHLORIDE 0.9% 1,000 ML IV ONE (15:27)
[2019-06-26 16:07] LABS: Hematocrit 20.6 % (36.0-46.0); Mean Corpuscular Hemoglobin 29.7 pg (28.0-32.0); Red Blood Cells 2.29 10^6/uL (4.0-5.20)
[2019-06-26 16:09] LABS: Platelet Count (auto) 525 10^3/uL (140-450); White Blood Cell 14.3 10^3/uL (4.4-10.8)
[2019-06-26 16:32] LABS: Alanine Aminotransferase 8 U/L (13-56); Albumin 2.7 g/dL (3.4-5.0); Anion Gap 11 (5-15); Aspartate Aminotransferase 9 U/L (15-37); Calcium 9.2 mg/dL (8.5-10.1); Carbon Dioxide 20 mmol/L (21-32); Chloride 102 mmol/L (98-107); GFR African American 19 mL/min; GFR Non-African American 16 mL/min; Glucose 213 mg/dL (74-106); Potassium 4.1 mmol/L (3.5-5.1); Sodium 133 mmol/L (136-145)
[2019-06-26 16:34] LABS: Red Cell Distribution Width 21.6 % (11.8-14.3)
[2019-06-26 16:36] LABS: Hemoglobin 6.8 g/dL (12.2-16.2)
[2019-06-26 16:37] LABS: Basophils % (manual) 0 (0.0-2.0); Blast Cells 0; Myelocytes % 0; Promyelocytes % 0; Reactive Lymphocytes 0
[2019-06-26 16:38] LABS: Alkaline Phosphatase 47 U/L (45-117); Bilirubin, Total 0.2 mg/dL (0.2-1.0); Total Protein 6.6 g/dL (6.4-8.2)
[2019-06-26 16:42] LABS: Urine Bacteria MANY /hpf (None Seen); Urine Blood TRACE /uL (Negative); Urine Budding Yeast FEW /hpf (None Seen); Urine Specific Gravity 1.012 (1.001-1.035); Urine WBC 440 /hpf (0 - 5); Urine WBC Clumps PRESENT /hpf (None Seen)
[2019-06-26 16:45] LABS: Blood Urea Nitrogen 149 mg/dL (7-18)
[2019-06-26] MEDS ORDERED: PANTOPRAZOLE 40 MG/10 ML VIAL INJ IV ONE (17:00)
[2019-06-26] MEDS ORDERED: cefTRIAXone 1GM/50ML D5W 50 ML IV ONE (17:00)
[2019-06-26 17:13] LABS: Eosinophils % (manual) 1 (0-7); Lymphocytes % (manual) 18 (10.0-50.0); Metamyelocytes % 1; Monocytes % (manual) 3 (0-12)
[2019-06-26 17:14] LABS: Band Neutrophils % (manual) 1
[2019-06-26] MEDS ORDERED: HYDROcodone-ACET 5/325MG TAB PO PRN (17:15)
[2019-06-26] MEDS ORDERED: DOCUSATE SOD 100 MG CAP PO PRN (17:15)
[2019-06-26] MEDS ORDERED: MORPHINE SULF INJ 2 MG/ML SYRINGE 1ML IV PRN (17:15)
[2019-06-26] MEDS ORDERED: LORazepam 0.5 MG TAB PO PRN (17:15)
[2019-06-26] MEDS ORDERED: ALUM & MAG HYDROX-SIMETH LIQ(MAALOX) 30 ML PO PRN (17:15)
[2019-06-26] MEDS ORDERED: METOCLOPRAMIDE HCL 5MG/ml INJ 2ml VIAL IV PRN (17:15)
[2019-06-26] MEDS ORDERED: MORPHINE SULFATE 4 MG/ML SYR/VIAL IV PRN (17:15)
[2019-06-26] MEDS ORDERED: NITROGLYCERIN 0.4 MG SL TAB SL PRN (17:15)
[2019-06-26] MEDS: SODIUM CHLORIDE 0.9% 1,000 ML IV SCH (17:19)
[2019-06-26] MEDS ORDERED: FUROSEMIDE 100 MG/10ML VIAL IV ONE (17:30)
[2019-06-26 17:44] LABS: INR 1.4 (0.9-1.15); Partial Thromboplastin Time 25.9 sec (23.64-32.05)
[2019-06-26] MEDS ORDERED: AMPICILLIN & SULBACTAM SODIUM 1.5 GM in SODIUM CHL 0.9% 100 ML IV SCH (18:08)
[2019-06-26 18:28] LABS: Cholesterol 105 mg/dL (< 200)
[2019-06-26 18:32] LABS: HDL Cholesterol 29 mg/dL (40-59); LDL Cholesterol 59 mg/dL (< 100); Triglycerides 139 mg/dL (< 150)
[2019-06-26 22:00] VITALS: BP 122/59
[2019-06-26] MEDS ORDERED: CIPROFLOXACIN 400MG/200ML 200 ML IV SCH (22:00)
[2019-06-26 22:04] VITALS: BP 122/59
[2019-06-26 22:30] VITALS: BP 150/57
[2019-06-26 23:00] VITALS: BP 163/80
[2019-06-26] MEDS ORDERED: ESCI10TA PO (23:21)
[2019-06-26] MEDS ORDERED: BUME1TAB3 PO (23:21)
[2019-06-26] MEDS ORDERED: MED20T PO (23:21)
[2019-06-26] MEDS ORDERED: FERR-20 PO (23:22)
[2019-06-26 23:30] VITALS: BP 150/66
[2019-06-26] MEDS: CARVEDILOL 12.5 MG TAB PO SCH (23:49)
[2019-06-27] VITALS (11 sets, daily range): BP systolic 142–169; BP diastolic 57–87
[2019-06-27] MEDS: AMPICILLIN & SULBACTAM SODIUM 1.5 GM in SODIUM CHL 0.9% 100 ML IV SCH ×2 (00:35→11:05)
[2019-06-27 05:22] LABS: Hematocrit 21.7 % (36.0-46.0); Mean Corpuscular Volume 87.5 fL (80.0-100.0); Red Blood Cells 2.48 10^6/uL (4.0-5.20)
[2019-06-27 05:24] LABS: Hemoglobin 7.3 g/dL (12.2-16.2); Mean Corpuscular Hemoglobin 29.4 pg (28.0-32.0); Mean Corpuscular Hgb Conc. 33.6 g/dL (32.0-36.0); Platelet Count (auto) 468 10^3/uL (140-450); White Blood Cell 14.3 10^3/uL (4.4-10.8)
[2019-06-27 05:43] LABS: Magnesium 1.8 mg/dL (1.6-2.6); Potassium 3.4 mmol/L (3.5-5.1)
[2019-06-27 05:46] LABS: % Iron Saturation 92.8 % (15-50); INR 1.4 (0.9-1.15); Partial Thromboplastin Time 26.6 sec (23.64-32.05)
[2019-06-27 05:47] LABS: Red Cell Distribution Width 20.6 % (11.8-14.3)
[2019-06-27 05:48] LABS: Albumin 2.5 g/dL (3.4-5.0); BUN/Creatinine Ratio 48.5; Basophils % (manual) 0 (0.0-2.0); Bilirubin, Total 0.5 mg/dL (0.2-1.0); Blast Cells 0; Calcium 8.6 mg/dL (8.5-10.1); Myelocytes % 0; Phosphorus 4.1 mg/dL (2.5-4.90); Promyelocytes % 0; Reactive Lymphocytes 0; Uric Acid 11.8 mg/dL (2.6-6.0)
[2019-06-27] MEDS ORDERED: FUROSEMIDE 100 MG/10ML VIAL IV SCH (06:00)
[2019-06-27 06:50] LABS: Band Neutrophils % (manual) 2; Eosinophils % (manual) 2 (0-7); Lymphocytes % (manual) 14 (10.0-50.0); Metamyelocytes % 1; Monocytes % (manual) 5 (0-12)
[2019-06-27] MEDS ORDERED: DAPTOmycin 0 MG in SODIUM CHL 0.9% 50 ML IV SCH (10:00)
[2019-06-27] MEDS: amLODIPine BESYLATE 5 MG TAB PO SCH (10:17)
[2019-06-27] MEDS: PANTOPRAZOLE 40 MG TAB PO SCH (10:18)
[2019-06-27] MEDS: CITALOPRAM HYDROBR 20 MG TAB PO SCH (10:18)
[2019-06-27] MEDS: CARVEDILOL 12.5 MG TAB PO SCH ×2 (10:18→19:31)
[2019-06-27] MEDS: SODIUM CHLORIDE 0.9% 1,000 ML IV SCH (10:19)
[2019-06-27] MEDS ORDERED: cefTRIAXone 1GM/50ML D5W 50 ML IV ONE (11:45)
[2019-06-27 15:55] LABS: BUN/Creatinine Ratio 44.7; Calcium 8.7 mg/dL (8.5-10.1); Potassium 3.7 mmol/L (3.5-5.1)
[2019-06-27] MEDS: ENOXAPARIN SOD 30 MG/0.3 ML SYRINGE SC SCH (20:48)
[2019-06-28] MEDS: SODIUM CHLORIDE 0.9% 1,000 ML IV SCH ×2 (02:21→19:01)
[2019-06-28] MEDS: amLODIPine BESYLATE 5 MG TAB PO SCH (05:12)
[2019-06-28 06:00] VITALS: BP 163/67
[2019-06-28 06:15] VITALS: BP 155/66
[2019-06-28 06:55] LABS: Hemoglobin 9.8 g/dL (12.2-16.2); Mean Corpuscular Hemoglobin 29.5 pg (28.0-32.0); Mean Corpuscular Hgb Conc. 33.7 g/dL (32.0-36.0); Mean Corpuscular Volume 87.5 fL (80.0-100.0); Platelet Count (auto) 497 10^3/uL (140-450); Red Blood Cells 3.31 10^6/uL (4.0-5.20); White Blood Cell 15.1 10^3/uL (4.4-10.8)
[2019-06-28 07:01] LABS: Basophils % (manual) 0 (0.0-2.0); Blast Cells 0; Promyelocytes % 0; Reactive Lymphocytes 0
[2019-06-28 07:09] LABS: Calcium 8.6 mg/dL (8.5-10.1); Potassium 3.5 mmol/L (3.5-5.1)
[2019-06-28 07:31] LABS: Band Neutrophils % (manual) 1; Eosinophils % (manual) 5 (0-7); Lymphocytes % (manual) 11 (10.0-50.0); Metamyelocytes % 1; Monocytes % (manual) 5 (0-12); Myelocytes % 1
[2019-06-28] MEDS: CARVEDILOL 12.5 MG TAB PO SCH ×2 (08:31→18:00)
[2019-06-28] MEDS ORDERED: LIDOCAINE VISCOUS 2% 15ML UD ONE (08:48)
[2019-06-28] MEDS ORDERED: MIDAZOLAM HCL 5 MG/ML-1ML VIAL ONE (08:48)
[2019-06-28] MEDS ORDERED: SODIUM CHLORIDE LOCK 10 ML ONE (08:48)
[2019-06-28] MEDS ORDERED: fentaNYL CITRATE 100 MCG/2 ML VL ONE (08:49)
[2019-06-28] MEDS ORDERED: diphenhdrAMINE HCL 50 MG/1 ML VL ONE (08:49)
[2019-06-28] MEDS ORDERED: cefTRIAXone 1GM/50ML D5W 50 ML IV SCH (09:00)
[2019-06-28 09:23] VITALS: BP 145/69
[2019-06-28] MEDS: PANTOPRAZOLE 40 MG TAB PO SCH (10:16)
[2019-06-28] MEDS: CITALOPRAM HYDROBR 20 MG TAB PO SCH (10:17)
[2019-06-28] MEDS: ENOXAPARIN SOD 30 MG/0.3 ML SYRINGE SC SCH (10:17)
[2019-06-28] MEDS ORDERED: LINEZOLID 600MG/300ML 300 ML IV ONE (11:45)
[2019-06-28 13:21] VITALS: BP 138/67
[2019-06-28 16:21] VITALS: BP 130/67
[2019-06-28] MEDS: LINEZOLID 600MG/300ML 300 ML IV SCH (20:23)
[2019-06-28 22:00] VITALS: BP 109/49
[2019-06-28 22:39] LABS: Protein, Urine 285.2 mg/dL (0.0-11.9)
[2019-06-29 05:54] VITALS: BP 146/62
[2019-06-29 06:35] LABS: Hemoglobin 9.2 g/dL (12.2-16.2); Red Cell Distribution Width 18.3 % (11.8-14.3)
[2019-06-29 06:38] LABS: Hematocrit 26.4 % (36.0-46.0); Mean Corpuscular Hemoglobin 30.1 pg (28.0-32.0); Mean Corpuscular Hgb Conc. 34.8 g/dL (32.0-36.0); Mean Corpuscular Volume 86.6 fL (80.0-100.0); Platelet Count (auto) 452 10^3/uL (140-450); Red Blood Cells 3.04 10^6/uL (4.0-5.20); White Blood Cell 11.7 10^3/uL (4.4-10.8)
[2019-06-29 06:40] LABS: Basophils % (manual) 0 (0.0-2.0); Blast Cells 0; Myelocytes % 0; Promyelocytes % 0; Reactive Lymphocytes 0
[2019-06-29 07:00] LABS: Potassium 3.6 mmol/L (3.5-5.1)
[2019-06-29 07:06] LABS: BUN/Creatinine Ratio 36.9; Calcium 8.3 mg/dL (8.5-10.1)
[2019-06-29 09:00] VITALS: BP 146/64
[2019-06-29] MEDS: LINEZOLID 600MG/300ML 300 ML IV SCH ×2 (09:17→23:49)
[2019-06-29] MEDS: PANTOPRAZOLE 40 MG TAB PO SCH (09:19)
[2019-06-29] MEDS: CARVEDILOL 12.5 MG TAB PO SCH ×2 (09:20→18:17)
[2019-06-29] MEDS: ENOXAPARIN SOD 30 MG/0.3 ML SYRINGE SC SCH (09:20)
[2019-06-29] MEDS: CITALOPRAM HYDROBR 20 MG TAB PO SCH (09:20)
[2019-06-29] MEDS: GABAPENTIN 100 MG CAP PO SCH (11:00)
[2019-06-29] MEDS: amLODIPine BESYLATE 5 MG TAB PO SCH (11:00)
[2019-06-29 11:19] LABS: Band Neutrophils % (manual) 2; Lymphocytes % (manual) 6 (10.0-50.0); Metamyelocytes % 1; Monocytes % (manual) 7 (0-12)
[2019-06-29 11:21] LABS: Eosinophils % (manual) 2 (0-7)
[2019-06-29] MEDS: SODIUM CHLORIDE 0.9% 1,000 ML IV SCH (11:41)
[2019-06-29 13:00] VITALS: BP 138/66
[2019-06-29 17:00] VITALS: BP 134/58
[2019-06-30 05:00] VITALS: BP 148/67
[2019-06-30 06:56] LABS: Hemoglobin 9.4 g/dL (12.2-16.2)
[2019-06-30 06:58] LABS: Hematocrit 28.5 % (36.0-46.0); Mean Corpuscular Hemoglobin 29.9 pg (28.0-32.0); Mean Corpuscular Volume 90.5 fL (80.0-100.0); Platelet Count (auto) 479 10^3/uL (140-450); Red Blood Cells 3.15 10^6/uL (4.0-5.20); Red Cell Distribution Width 18.1 % (11.8-14.3); White Blood Cell 16.7 10^3/uL (4.4-10.8)
[2019-06-30 07:11] LABS: Potassium 3.6 mmol/L (3.5-5.1)
[2019-06-30 07:15] LABS: Basophils % (manual) 0 (0.0-2.0); Blast Cells 0; Myelocytes % 0; Promyelocytes % 0; Reactive Lymphocytes 0
[2019-06-30 07:17] LABS: BUN/Creatinine Ratio 31.2; Calcium 8.5 mg/dL (8.5-10.1)
[2019-06-30] MEDS: CARVEDILOL 12.5 MG TAB PO SCH ×2 (08:04→17:59)
[2019-06-30 08:36] LABS: Band Neutrophils % (manual) 1; Lymphocytes % (manual) 6 (10.0-50.0); Monocytes % (manual) 6 (0-12)
[2019-06-30 08:39] LABS: Eosinophils % (manual) 2 (0-7); Metamyelocytes % 1
[2019-06-30] MEDS: CITALOPRAM HYDROBR 20 MG TAB PO SCH (09:31)
[2019-06-30] MEDS: PANTOPRAZOLE 40 MG TAB PO SCH (09:31)
[2019-06-30] MEDS: GABAPENTIN 100 MG CAP PO SCH (09:31)
[2019-06-30] MEDS: amLODIPine BESYLATE 5 MG TAB PO SCH (09:33)
[2019-06-30] MEDS: LINEZOLID 600MG/300ML 300 ML IV SCH ×2 (09:40→22:00)
[2019-06-30] MEDS ORDERED: FLUCONAZOLE 200MG/100ML 100 ML IV ONE (10:45)
[2019-06-30] MEDS ORDERED: cefTRIAXone 1GM/50ML D5W 50 ML IV ONE (10:45)
[2019-06-30] MEDS ORDERED: DEXTROSE (50%) 50ML SYRG IV PRN (10:45)
[2019-06-30] MEDS: ACCU-CHEK COMFORT CURVE STRIP VI SCH ×3 (14:55→22:00)
[2019-06-30] MEDS: InsuLIN REG 1unit/0.01ml Soln (100units/ml) SC SCH ×3 (14:55→22:00)
[2019-06-30 16:59] VITALS: BP 162/87
[2019-06-30] MEDS: SODIUM CHLORIDE 0.9% 1,000 ML IV SCH ×2 (21:01)
[2019-06-30 22:00] VITALS: BP 123/59
[2019-07-01 04:00] VITALS: BP 142/71
[2019-07-01] MEDS: InsuLIN REG 1unit/0.01ml Soln (100units/ml) SC SCH ×4 (06:36→22:00)
[2019-07-01] MEDS: ACCU-CHEK COMFORT CURVE STRIP VI SCH ×4 (06:36→22:28)
[2019-07-01 07:10] LABS: Eosinophils # (auto) 0.1 10 ^3/uL (0-0.8); Eosinophils % (auto) 0.8 % (0.0-7.0); Hemoglobin 7.7 g/dL (12.2-16.2); Monocytes # (auto) 1.2 10 ^3/uL (0-1.3)
[2019-07-01 07:13] LABS: Basophils # (auto) 0 10 ^3/uL (0-0.2); Basophils % (auto) 0.3 % (0.0-2.0); Hematocrit 22.4 % (36.0-46.0); Lymphocytes # (auto) 0.5 10 ^3/uL (0.4-5.4); Lymphocytes % (auto) 3.6 % (10.0-50.0); Mean Corpuscular Hemoglobin 30.5 pg (28.0-32.0); Mean Corpuscular Hgb Conc. 34.5 g/dL (32.0-36.0); Mean Corpuscular Volume 88.3 fL (80.0-100.0); Neutrophils # (auto) 12.9 10 ^3/uL (1.6-8.6); Neutrophils % (auto) 87.3 % (37.0-80.0); Nucleated Red Blood Cells % 0.1 %; Platelet Count (auto) 419 10^3/uL (140-450); Red Blood Cells 2.53 10^6/uL (4.0-5.20); Red Cell Distribution Width 17.7 % (11.8-14.3); White Blood Cell 14.7 10^3/uL (4.4-10.8)
[2019-07-01 07:27] LABS: Potassium 3.3 mmol/L (3.5-5.1)
[2019-07-01 07:31] LABS: BUN/Creatinine Ratio 24.2; Calcium 8.2 mg/dL (8.5-10.1)
[2019-07-01 07:35] LABS: Bilirubin, Total 0.4 mg/dL (0.2-1.0); Total Protein 5.8 g/dL (6.4-8.2)
[2019-07-01] MEDS: CARVEDILOL 12.5 MG TAB PO SCH ×2 (08:59→17:29)
[2019-07-01] MEDS: FLUCONAZOLE 200MG/100ML 100 ML IV SCH (08:59)
[2019-07-01 09:00] VITALS: BP 146/63
[2019-07-01] MEDS ORDERED: cefTRIAXone 1GM/50ML D5W 50 ML IV SCH (09:00)
[2019-07-01] MEDS ORDERED: SODIUM BICARBONATE 50ML VIAL 75 ML, POTASSIUM CHLORIDE 20 MEQ in SOD CHL 0.45% 1,000 ML IV SCH (09:30)
[2019-07-01] MEDS: GABAPENTIN 100 MG CAP PO SCH (10:26)
[2019-07-01] MEDS: CITALOPRAM HYDROBR 20 MG TAB PO SCH (10:26)
[2019-07-01] MEDS: LINEZOLID 600MG/300ML 300 ML IV SCH ×2 (10:26→22:27)
[2019-07-01] MEDS: PANTOPRAZOLE 40 MG TAB PO SCH (10:27)
[2019-07-01] MEDS: amLODIPine BESYLATE 5 MG TAB PO SCH (10:28)
[2019-07-01] MEDS ORDERED: ACETAMINOPHEN 500 MG TAB PO PRN (10:30)
[2019-07-01] MEDS ORDERED: SOD CHL 0.9%/ KCL 20MEQ 1,000 ML IV SCH (11:00)
[2019-07-01] MEDS ORDERED: NITROFURANTOIN (MONO) 100 mg CAP PO ONE (11:00)
[2019-07-01] MEDS ORDERED: POTASSIUM EFFERVESENT TAB 25 MEQ PO ONE (11:15)
[2019-07-01] MEDS: SUCRALFATE 1 GM TAB PO SCH ×3 (12:26→22:26)
[2019-07-01] MEDS: SODIUM BICARBONATE 650 MG TAB PO SCH ×3 (12:27→22:26)
[2019-07-01 13:00] VITALS: BP 132/64
[2019-07-01 17:27] VITALS: BP 141/64
[2019-07-01] MEDS ORDERED: SODIUM BICARBONATE 50ML VIAL 50 ML in SOD CHL 0.45% 1,000 ML IV ONE (19:30)
[2019-07-01 22:00] VITALS: BP 110/50
[2019-07-01] MEDS: NITROFURANTOIN (MONO) 100 mg CAP PO SCH (22:26)
[2019-07-02 05:00] VITALS: BP 139/59
[2019-07-02] MEDS: SUCRALFATE 1 GM TAB PO SCH ×4 (05:56→21:11)
[2019-07-02] MEDS: SODIUM BICARBONATE 650 MG TAB PO SCH ×4 (05:56→21:11)
[2019-07-02] MEDS: InsuLIN REG 1unit/0.01ml Soln (100units/ml) SC SCH ×4 (05:57→21:22)
[2019-07-02] MEDS: ACCU-CHEK COMFORT CURVE STRIP VI SCH ×4 (05:58→21:12)
[2019-07-02 06:42] LABS: Basophils # (auto) 0 10 ^3/uL (0-0.2); Basophils % (auto) 0.4 % (0.0-2.0); Eosinophils # (auto) 0.2 10 ^3/uL (0-0.8); Hemoglobin 7.2 g/dL (12.2-16.2); Lymphocytes # (auto) 0.5 10 ^3/uL (0.4-5.4); Nucleated Red Blood Cells % 0.1 %
[2019-07-02 06:45] LABS: Eosinophils % (auto) 2.5 % (0.0-7.0); Hematocrit 20.7 % (36.0-46.0); Lymphocytes % (auto) 5.7 % (10.0-50.0); Mean Corpuscular Hemoglobin 30.9 pg (28.0-32.0); Mean Corpuscular Hgb Conc. 34.7 g/dL (32.0-36.0); Mean Corpuscular Volume 89.1 fL (80.0-100.0); Monocytes # (auto) 0.9 10 ^3/uL (0-1.3); Monocytes % (auto) 9.7 % (0.0-12.0); Neutrophils # (auto) 7.2 10 ^3/uL (1.6-8.6); Neutrophils % (auto) 81.7 % (37.0-80.0); Platelet Count (auto) 376 10^3/uL (140-450); Red Blood Cells 2.33 10^6/uL (4.0-5.20); Red Cell Distribution Width 18.1 % (11.8-14.3); White Blood Cell 8.9 10^3/uL (4.4-10.8)
[2019-07-02 07:16] LABS: BUN/Creatinine Ratio 20.9; Calcium 8.2 mg/dL (8.5-10.1); Potassium 3.5 mmol/L (3.5-5.1)
[2019-07-02 09:41] VITALS: BP 128/59
[2019-07-02] MEDS: PANTOPRAZOLE 40 MG TAB PO SCH (09:42)
[2019-07-02] MEDS: NITROFURANTOIN (MONO) 100 mg CAP PO SCH (09:42)
[2019-07-02] MEDS: GABAPENTIN 100 MG CAP PO SCH (09:42)
[2019-07-02] MEDS: LINEZOLID 600MG/300ML 300 ML IV SCH ×2 (09:42→21:11)
[2019-07-02] MEDS: CITALOPRAM HYDROBR 20 MG TAB PO SCH (09:42)
[2019-07-02] MEDS: CARVEDILOL 12.5 MG TAB PO SCH ×2 (09:43→17:47)
[2019-07-02] MEDS: amLODIPine BESYLATE 5 MG TAB PO SCH (09:43)
[2019-07-02] MEDS ORDERED: FERROUS SULFATE 325 MG TAB PO ONE (10:15)
[2019-07-02] MEDS ORDERED: predniSONE 20 MG TAB PO ONE (10:15)
[2019-07-02] MEDS: FLUCONAZOLE 200MG/100ML 100 ML IV SCH (12:44)
[2019-07-02 13:31] VITALS: BP 130/62
[2019-07-02 16:40] VITALS: BP 133/64
[2019-07-02] MEDS: FERROUS SULFATE 325 MG TAB PO SCH (17:47)
[2019-07-02 18:01] LABS: Urine Amorphous Crystal FEW /hpf (None Seen); Urine Bacteria FEW /hpf (None Seen); Urine Blood TRACE /uL (Negative); Urine Specific Gravity 1.013 (1.001-1.035); Urine WBC 47 /hpf (0 - 5)
[2019-07-02 22:00] VITALS: BP 149/71
[2019-07-03 05:00] VITALS: BP 143/74
[2019-07-03] MEDS: SUCRALFATE 1 GM TAB PO SCH ×4 (06:26→22:28)
[2019-07-03] MEDS: ACCU-CHEK COMFORT CURVE STRIP VI SCH ×4 (06:26→22:29)
[2019-07-03] MEDS: SODIUM BICARBONATE 650 MG TAB PO SCH ×4 (06:26→22:28)
[2019-07-03] MEDS: InsuLIN REG 1unit/0.01ml Soln (100units/ml) SC SCH ×4 (06:33→22:33)
[2019-07-03 06:51] LABS: Basophils # (auto) 0 10 ^3/uL (0-0.2); Eosinophils # (auto) 0 10 ^3/uL (0-0.8); Lymphocytes # (auto) 0.3 10 ^3/uL (0.4-5.4)
[2019-07-03 06:54] LABS: Basophils % (auto) 0.2 % (0.0-2.0); Hematocrit 22.4 % (36.0-46.0); Hemoglobin 7.6 g/dL (12.2-16.2); Lymphocytes % (auto) 3.6 % (10.0-50.0); Mean Corpuscular Hemoglobin 30.1 pg (28.0-32.0); Mean Corpuscular Hgb Conc. 34.1 g/dL (32.0-36.0); Mean Corpuscular Volume 88.3 fL (80.0-100.0); Monocytes # (auto) 0.4 10 ^3/uL (0-1.3); Monocytes % (auto) 5.4 % (0.0-12.0); Neutrophils % (auto) 90.8 % (37.0-80.0); Nucleated Red Blood Cells % 0.1 %; Platelet Count (auto) 380 10^3/uL (140-450); Red Blood Cells 2.54 10^6/uL (4.0-5.20); Red Cell Distribution Width 17.7 % (11.8-14.3); White Blood Cell 7.7 10^3/uL (4.4-10.8)
[2019-07-03 07:13] LABS: BUN/Creatinine Ratio 20.5; Calcium 8.3 mg/dL (8.5-10.1); Potassium 3.7 mmol/L (3.5-5.1)
[2019-07-03 08:00] VITALS: BP 141/60
[2019-07-03] MEDS: FLUCONAZOLE 200MG/100ML 100 ML IV SCH (09:13)
[2019-07-03] MEDS: FERROUS SULFATE 325 MG TAB PO SCH ×2 (09:14→18:23)
[2019-07-03] MEDS: CARVEDILOL 12.5 MG TAB PO SCH ×2 (09:14→18:23)
[2019-07-03] MEDS: predniSONE 20 MG TAB PO SCH (09:15)
[2019-07-03] MEDS: GABAPENTIN 100 MG CAP PO SCH (09:15)
[2019-07-03] MEDS: ALLOPURINOL 100 MG TAB PO SCH (09:15)
[2019-07-03] MEDS: CITALOPRAM HYDROBR 20 MG TAB PO SCH (09:15)
[2019-07-03] MEDS: PANTOPRAZOLE 40 MG TAB PO SCH (09:15)
[2019-07-03 12:00] VITALS: BP 144/66
[2019-07-03] MEDS: FLUCONAZOLE 100 MG TAB PO SCH (12:19)
[2019-07-03] MEDS: LINEZOLID 600MG TABLET PO SCH ×2 (12:20→22:28)
[2019-07-03] MEDS: SODIUM CHLORIDE 0.9% 1,000 ML IV SCH (12:21)
[2019-07-03] MEDS ORDERED: POTASSIUM EFFERVESENT TAB 25 MEQ PO ONE (13:00)
[2019-07-03 17:01] VITALS: BP 155/69
[2019-07-03] MEDS: Glucerna Carbsteady SHAKE Vanilla 8oz PO SCH (18:23)
[2019-07-03 22:00] VITALS: BP 148/74
[2019-07-04] VITALS (7 sets, daily range): BP systolic 140–171; BP diastolic 67–72
[2019-07-04] MEDS: SODIUM BICARBONATE 650 MG TAB PO SCH ×4 (06:14→22:11)
[2019-07-04] MEDS: SUCRALFATE 1 GM TAB PO SCH ×4 (06:14→22:11)
[2019-07-04] MEDS: ACCU-CHEK COMFORT CURVE STRIP VI SCH ×4 (06:15→22:00)
[2019-07-04] MEDS: SODIUM CHLORIDE 0.9% 1,000 ML IV SCH (06:15)
[2019-07-04] MEDS: InsuLIN REG 1unit/0.01ml Soln (100units/ml) SC SCH ×4 (06:20→22:00)
[2019-07-04] MEDS: Glucerna Carbsteady SHAKE Vanilla 8oz PO SCH ×2 (08:00→17:47)
[2019-07-04 10:25] LABS: Basophils # (auto) 0 10 ^3/uL (0-0.2); Eosinophils # (auto) 0.1 10 ^3/uL (0-0.8); Hematocrit 22.1 % (36.0-46.0); Lymphocytes # (auto) 0.5 10 ^3/uL (0.4-5.4); Monocytes # (auto) 0.5 10 ^3/uL (0-1.3); Red Blood Cells 2.52 10^6/uL (4.0-5.20)
[2019-07-04 10:27] LABS: Basophils % (auto) 0.3 % (0.0-2.0); Eosinophils % (auto) 1.1 % (0.0-7.0); Hemoglobin 7.5 g/dL (12.2-16.2); Lymphocytes % (auto) 6.5 % (10.0-50.0); Mean Corpuscular Hemoglobin 29.9 pg (28.0-32.0); Mean Corpuscular Volume 87.8 fL (80.0-100.0); Neutrophils # (auto) 6.8 10 ^3/uL (1.6-8.6); Neutrophils % (auto) 86.1 % (37.0-80.0); Platelet Count (auto) 369 10^3/uL (140-450); Red Cell Distribution Width 17.9 % (11.8-14.3); White Blood Cell 7.9 10^3/uL (4.4-10.8)
[2019-07-04 10:44] LABS: BUN/Creatinine Ratio 21.8; Calcium 8.1 mg/dL (8.5-10.1); Potassium 3.6 mmol/L (3.5-5.1)
[2019-07-04] MEDS: LINEZOLID 600MG TABLET PO SCH ×2 (11:17→22:11)
[2019-07-04] MEDS: FLUCONAZOLE 100 MG TAB PO SCH (11:17)
[2019-07-04] MEDS: FERROUS SULFATE 325 MG TAB PO SCH ×2 (11:17→18:16)
[2019-07-04] MEDS: GABAPENTIN 100 MG CAP PO SCH (11:18)
[2019-07-04] MEDS: predniSONE 20 MG TAB PO SCH (11:18)
[2019-07-04] MEDS: CITALOPRAM HYDROBR 20 MG TAB PO SCH (11:18)
[2019-07-04] MEDS: CARVEDILOL 12.5 MG TAB PO SCH ×2 (11:18→18:16)
[2019-07-04] MEDS: ALLOPURINOL 100 MG TAB PO SCH (11:18)
[2019-07-04] MEDS: PANTOPRAZOLE 40 MG TAB PO SCH (11:18)
[2019-07-05 05:00] VITALS: BP 147/74
[2019-07-05] MEDS: InsuLIN REG 1unit/0.01ml Soln (100units/ml) SC SCH ×2 (05:03→11:30)
[2019-07-05] MEDS: ACCU-CHEK COMFORT CURVE STRIP VI SCH ×2 (05:09→11:30)
[2019-07-05] MEDS: SUCRALFATE 1 GM TAB PO SCH ×2 (05:24→12:11)
[2019-07-05] MEDS: SODIUM CHLORIDE 0.9% 1,000 ML IV SCH (05:24)
[2019-07-05 05:31] LABS: BUN/Creatinine Ratio 24.1; Calcium 8.1 mg/dL (8.5-10.1); Potassium 3.7 mmol/L (3.5-5.1)
[2019-07-05] MEDS: SODIUM BICARBONATE 650 MG TAB PO SCH ×2 (05:32→12:11)
[2019-07-05 08:00] VITALS: BP 152/71
[2019-07-05 09:00] VITALS: BP 152/71
[2019-07-05] MEDS: GABAPENTIN 100 MG CAP PO SCH (09:14)
[2019-07-05] MEDS: ALLOPURINOL 100 MG TAB PO SCH (09:14)
[2019-07-05] MEDS: FERROUS SULFATE 325 MG TAB PO SCH (09:14)
[2019-07-05] MEDS: predniSONE 20 MG TAB PO SCH (09:14)
[2019-07-05] MEDS: CITALOPRAM HYDROBR 20 MG TAB PO SCH (09:15)
[2019-07-05] MEDS: FLUCONAZOLE 100 MG TAB PO SCH (09:15)
[2019-07-05] MEDS: PANTOPRAZOLE 40 MG TAB PO SCH (09:15)
[2019-07-05] MEDS: CARVEDILOL 12.5 MG TAB PO SCH (09:16)
[2019-07-05] MEDS: Glucerna Carbsteady SHAKE Vanilla 8oz PO SCH (09:16)
[2019-07-05] MEDS: LINEZOLID 600MG TABLET PO SCH (12:21)
[2019-07-05 14:00] VITALS: BP 153/75
[2019-07-05 15:17] VITALS: BP 152/71
== END 2019-07-05 16:02 | disposition home health service (06) | DRG 871 ==
LOC: EDBD 15:20 → ER 15:20 → TELE 15:21 → TELE-CENTR 21:42
PROVIDERS: ADMIT Hospitalist; ATTEND Internal Medicine
PROC: 30233N1 Transfusion of Nonautologous Red Blood Cells into Peripheral Vein, Percutaneous Approach (ICD-10-PCS; principal; 2019-06-26)
DX: A41.9 Sepsis, unspecified organism (principal); R65.21 Severe sepsis with septic shock; G93.41 Metabolic encephalopathy; N17.0 Acute kidney failure with tubular necrosis; E44.0 Moderate protein-calorie malnutrition; N18.5 Chronic kidney disease, stage 5; N10 Acute pyelonephritis; I13.2 Hypertensive heart and chronic kidney disease with heart failure and with stage 5 chronic kidney disease, or end stage renal disease; J96.10 Chronic respiratory failure, unspecified whether with hypoxia or hypercapnia; Z16.21 Resistance to vancomycin; E87.1 Hypo-osmolality and hyponatremia; I50.22 Chronic systolic (congestive) heart failure; F03.90 Unspecified dementia, unspecified severity, without behavioral disturbance, psychotic disturbance, mood disturbance, and anxiety; J44.9 Chronic obstructive pulmonary disease, unspecified; Z68.28 Body mass index [BMI] 28.0-28.9, adult; B95.2 Enterococcus as the cause of diseases classified elsewhere; E78.5 Hyperlipidemia, unspecified; I25.10 Atherosclerotic heart disease of native coronary artery without angina pectoris; M10.9 Gout, unspecified; D63.8 Anemia in other chronic diseases classified elsewhere; Z79.899 Other long term (current) drug therapy; Z80.0 Family history of malignant neoplasm of digestive organs; Z80.1 Family history of malignant neoplasm of trachea, bronchus and lung; E13.22 Other specified diabetes mellitus with diabetic chronic kidney disease; Z80.41 Family history of malignant neoplasm of ovary; Z80.3 Family history of malignant neoplasm of breast; Z80.8 Family history of malignant neoplasm of other organs or systems; Z81.8 Family history of other mental and behavioral disorders; Z82.0 Family history of epilepsy and other diseases of the nervous system; Z82.49 Family history of ischemic heart disease and other diseases of the circulatory system; Z82.3 Family history of stroke; Z82.5 Family history of asthma and other chronic lower respiratory diseases; Z82.62 Family history of osteoporosis; Z83.3 Family history of diabetes mellitus; Z85.3 Personal history of malignant neoplasm of breast; Z87.891 Personal history of nicotine dependence; Z95.1 Presence of aortocoronary bypass graft; Z85.528 Personal history of other malignant neoplasm of kidney; Z90.5 Acquired absence of kidney
CPT/HCPCS: 36415; 51702; 70450; 71045; 73100; 76775; 80048; 80053; 80061; 81001; 82306; 82570; 82607; 82962; 83036; 83540; 83550; 83735; 83880; 83970; 84100; 84156; 84443; 84484; 84550; 85007; 85025; 85027; 85379; 85610; 85730; 86850; 86900; 86901; 86920; 87040; 87081; 87086; 87088; 87186; 93005; 93306; 96361; 96365; 96375; 97110; 97163; 99291; C9113; G0378; J0295; J0696; J1450; J1815; J2250

== ENCOUNTER → 2019-07-05 | Emergency (ER) | payer MEDICARE, OTHER ==
[~2019-07-05] VITALS: Ht 170.2 cm; Wt 79.4 kg
[~2019-07-05] MED LIST changes: +BUME1TAB3 PO; +ESCI10TA PO; +FERR-20 PO; +MED20T PO
[2019-07-05 17:06] VITALS: BP 172/82
== END | disposition home or self-care (01) ==
LOC: EDUNIT# 16:56 → EDBD 17:00 → ER 17:00
DX: S09.90XA Unspecified injury of head, initial encounter (principal); J44.9 Chronic obstructive pulmonary disease, unspecified; I25.10 Atherosclerotic heart disease of native coronary artery without angina pectoris; E78.5 Hyperlipidemia, unspecified; I13.0 Hypertensive heart and chronic kidney disease with heart failure and stage 1 through stage 4 chronic kidney disease, or unspecified chronic kidney disease; E11.22 Type 2 diabetes mellitus with diabetic chronic kidney disease; N18.9 Chronic kidney disease, unspecified; I50.9 Heart failure, unspecified; Z95.1 Presence of aortocoronary bypass graft; Z90.89 Acquired absence of other organs; Z79.4 Long term (current) use of insulin; Z79.899 Other long term (current) drug therapy; W10.9XXA Fall (on) (from) unspecified stairs and steps, initial encounter; Y93.89 Activity, other specified; Y92.89 Other specified places as the place of occurrence of the external cause; Y99.8 Other external cause status
CPT/HCPCS: 70450; 72125

== ENCOUNTER 2019-07-13 20:44 | Inpatient (IN) | payer MEDICARE, OTHER ==
[~2019-07-13] VITALS: Ht 162.6 cm; Wt 58.7 kg
[~2019-07-13 20:44] MED LIST changes: -FERR325T50 PO
[2019-07-14 00:32] LABS: Basophils # (auto) 0.1 10 ^3/uL (0-0.2); Eosinophils # (auto) 0.5 10 ^3/uL (0-0.8); Lymphocytes # (auto) 1.1 10 ^3/uL (0.4-5.4); Monocytes # (auto) 0.8 10 ^3/uL (0-1.3)
[2019-07-14 00:33] LABS: Basophils % (auto) 0.6 % (0.0-2.0); Eosinophils % (auto) 4.7 % (0.0-7.0); Hematocrit 24.3 % (36.0-46.0); Hemoglobin 8.5 g/dL (12.2-16.2); Lymphocytes % (auto) 9.5 % (10.0-50.0); Mean Corpuscular Hemoglobin 30.9 pg (28.0-32.0); Mean Corpuscular Hgb Conc. 34.9 g/dL (32.0-36.0); Mean Corpuscular Volume 88.5 fL (80.0-100.0); Neutrophils # (auto) 8.8 10 ^3/uL (1.6-8.6); Neutrophils % (auto) 78.2 % (37.0-80.0); Platelet Count (auto) 297 10^3/uL (140-450); Red Blood Cells 2.75 10^6/uL (4.0-5.20); Red Cell Distribution Width 17.5 % (11.8-14.3); White Blood Cell 11.2 10^3/uL (4.4-10.8)
[2019-07-14 00:48] LABS: Albumin 2.1 g/dL (3.4-5.0); Anion Gap 11 (5-15); Blood Alcohol < 3.0 mg/dL (0-5); Carbon Dioxide 20 mmol/L (21-32); Chloride 101 mmol/L (98-107); Glucose 119 mg/dL (74-106); INR 1.38 (0.9-1.15); Magnesium 2.1 mg/dL (1.6-2.6); Partial Thromboplastin Time 28.3 sec (23.64-32.05); Potassium 3.9 mmol/L (3.5-5.1); Sodium 132 mmol/L (136-145)
[2019-07-14 00:50] LABS: Alanine Aminotransferase 20 U/L (13-56); Aspartate Aminotransferase 20 U/L (15-37); GFR African American 16 mL/min; GFR Non-African American 13 mL/min
[2019-07-14 00:54] LABS: Alkaline Phosphatase 52 U/L (45-117); Bilirubin, Total 0.3 mg/dL (0.2-1.0); Total Protein 6.2 g/dL (6.4-8.2)
[2019-07-14 01:01] LABS: BUN/Creatinine Ratio 26.1; Blood Urea Nitrogen 91 mg/dL (7-18)
[2019-07-14] MEDS ORDERED: cefTRIAXone 1GM/50ML D5W 50 ML IV ONE (02:30)
[2019-07-14 03:38] LABS: Amphetamine Screen, Urine NEGATIVE (NEGATIVE); Barbiturate Scree,Urine NEGATIVE (NEGATIVE); Benzodiazephine Screen, Urine NEGATIVE (NEGATIVE); Cannabinoid Screen, Urine NEGATIVE (NEGATIVE); Cocaine Screen, Urine NEGATIVE (NEGATIVE); Opiate Scree,Urine NEGATIVE (NEGATIVE); Phencyclidine Screen, Urine NEGATIVE (NEGATIVE)
[2019-07-14 03:40] LABS: Urine Amorphous Crystal MANY /hpf (None Seen); Urine Bacteria NONE SEEN /hpf (None Seen); Urine WBC 3655 /hpf (0 - 5); Urine WBC Clumps PRESENT /hpf (None Seen)
[2019-07-14 03:42] LABS: Urine Blood Trace /uL (Negative)
[2019-07-14] MEDS ORDERED: LABETALOL HCL 5 MG/ML 4ML SYRINGE IV ONE (05:00)
[2019-07-14] MEDS ORDERED: MORPHINE SULF INJ 2 MG/ML SYRINGE 1ML IV PRN (13:15)
[2019-07-14] MEDS ORDERED: SODIUM CHLORIDE 0.9% 1,000 ML IV ONE (13:15)
[2019-07-14] MEDS ORDERED: NITROGLYCERIN 0.4 MG SL TAB SL PRN (13:15)
[2019-07-14] MEDS ORDERED: SODIUM BICARBONATE 50ML VIAL 50 ML in SOD CHL 0.45% 1,000 ML IV SCH (13:15)
[2019-07-14] MEDS: SODIUM BICARBONATE 50ML VIAL 75 ML in SOD CHL 0.45% 1,000 ML IV SCH (14:50)
[2019-07-14] MEDS ORDERED: SUCR1TAB PO (16:30)
[2019-07-14] MEDS ORDERED: LINE1TAB6 PO (16:30)
[2019-07-14] MEDS ORDERED: ALLO100T PO (16:30)
[2019-07-14] MEDS ORDERED: BUME1TAB26 PO (16:30)
[2019-07-14] MEDS ORDERED: NIFE1TAB31 PO (16:30)
[2019-07-14] MEDS ORDERED: ACET-1156 PO (16:32)
[2019-07-14 16:52] VITALS: BP 147/81
[2019-07-14 21:46] VITALS: BP 157/82
[2019-07-14] MEDS: CARVEDILOL 12.5 MG TAB PO SCH (22:22)
[2019-07-14] MEDS: LINEZOLID 600MG/300ML 300 ML IV SCH (22:22)
[2019-07-15] MEDS ORDERED: SODIUM BICARBONATE 8.4 % INJ 50ML VIAL IV ONE (03:30)
[2019-07-15] MEDS: SODIUM BICARBONATE 50ML VIAL 75 ML in SOD CHL 0.45% 1,000 ML IV SCH ×3 (03:46→23:22)
[2019-07-15 05:00] VITALS: BP 117/70
[2019-07-15] MEDS: hydrALAZINE HCL 20 MG/ML VL IV PRN ×2 (07:54→14:42)
[2019-07-15 09:00] VITALS: BP 187/60
[2019-07-15 09:40] LABS: Basophils # (auto) 0.1 10 ^3/uL (0-0.2); Eosinophils # (auto) 0.4 10 ^3/uL (0-0.8); Hemoglobin 8.2 g/dL (12.2-16.2); Lymphocytes # (auto) 0.9 10 ^3/uL (0.4-5.4); Mean Corpuscular Volume 87.2 fL (80.0-100.0); Neutrophils # (auto) 8.6 10 ^3/uL (1.6-8.6)
[2019-07-15 09:42] LABS: Basophils % (auto) 0.8 % (0.0-2.0); Eosinophils % (auto) 3.9 % (0.0-7.0); Hematocrit 24.4 % (36.0-46.0); Lymphocytes % (auto) 8.4 % (10.0-50.0); Mean Corpuscular Hemoglobin 29.4 pg (28.0-32.0); Mean Corpuscular Hgb Conc. 33.7 g/dL (32.0-36.0); Monocytes # (auto) 0.8 10 ^3/uL (0-1.3); Monocytes % (auto) 7.2 % (0.0-12.0); Neutrophils % (auto) 79.7 % (37.0-80.0); Platelet Count (auto) 267 10^3/uL (140-450); Red Blood Cells 2.79 10^6/uL (4.0-5.20); Red Cell Distribution Width 17.3 % (11.8-14.3); White Blood Cell 10.8 10^3/uL (4.4-10.8)
[2019-07-15 09:58] LABS: Albumin 2.1 g/dL (3.4-5.0); Calcium 8.5 mg/dL (8.5-10.1); Potassium 3.7 mmol/L (3.5-5.1)
[2019-07-15] MEDS ORDERED: FERROUS SULFATE 650 MG PO SCH (10:00)
[2019-07-15 10:01] LABS: BUN/Creatinine Ratio 25.3; Bilirubin, Total 0.3 mg/dL (0.2-1.0)
[2019-07-15] MEDS: PANTOPRAZOLE 40 MG/10 ML VIAL INJ IV SCH (10:26)
[2019-07-15] MEDS: LINEZOLID 600MG/300ML 300 ML IV SCH ×2 (10:26→22:23)
[2019-07-15] MEDS: CLOPIDOGREL BISULFATE 75 MG TAB PO SCH (10:27)
[2019-07-15] MEDS: CARVEDILOL 12.5 MG TAB PO SCH ×2 (10:29→22:22)
[2019-07-15] MEDS: amLODIPine BESYLATE 5 MG TAB PO SCH (10:33)
[2019-07-15] MEDS: FERROUS SULFATE 325 MG TAB PO SCH (12:00)
[2019-07-15 13:00] VITALS: BP 173/60
[2019-07-15 16:49] VITALS: BP 118/62
[2019-07-15 20:00] VITALS: BP 145/64
[2019-07-15 22:00] VITALS: BP 145/64
[2019-07-16 05:00] VITALS: BP 121/42
[2019-07-16 06:56] LABS: Calcium 8.1 mg/dL (8.5-10.1)
[2019-07-16 06:58] LABS: BUN/Creatinine Ratio 22.9
[2019-07-16 07:04] LABS: Potassium 2.9 mmol/L (3.5-5.1)
[2019-07-16] MEDS: POTASSIUM CHL 20MEQ/100ML 100 ML IV SCH ×3 (08:40→15:01)
[2019-07-16 08:49] VITALS: BP 151/58
[2019-07-16] MEDS: LINEZOLID 600MG/300ML 300 ML IV SCH ×2 (09:40→21:59)
[2019-07-16] MEDS: PANTOPRAZOLE 40 MG/10 ML VIAL INJ IV SCH (09:40)
[2019-07-16] MEDS: CLOPIDOGREL BISULFATE 75 MG TAB PO SCH (09:40)
[2019-07-16] MEDS: amLODIPine BESYLATE 5 MG TAB PO SCH (09:41)
[2019-07-16] MEDS: CARVEDILOL 12.5 MG TAB PO SCH ×2 (09:41→21:59)
[2019-07-16] MEDS: FERROUS SULFATE 325 MG TAB PO SCH (11:36)
[2019-07-16 12:38] VITALS: BP 116/50
[2019-07-16 16:39] VITALS: BP 124/38
[2019-07-16 20:00] VITALS: BP 133/64
[2019-07-16 22:00] VITALS: BP_SYST 133; BP_SYST 147; BP_DIAS 64; BP_DIAS 87
[2019-07-17 05:00] VITALS: BP 136/72
[2019-07-17 06:04] LABS: Potassium 3.6 mmol/L (3.5-5.1)
[2019-07-17 06:14] LABS: BUN/Creatinine Ratio 20.7; Calcium 7.8 mg/dL (8.5-10.1)
[2019-07-17 08:00] VITALS: BP 144/58
[2019-07-17 08:38] VITALS: BP 144/58
[2019-07-17] MEDS: CARVEDILOL 12.5 MG TAB PO SCH ×2 (09:57→22:04)
[2019-07-17] MEDS: CLOPIDOGREL BISULFATE 75 MG TAB PO SCH (09:58)
[2019-07-17] MEDS: amLODIPine BESYLATE 5 MG TAB PO SCH (09:58)
[2019-07-17] MEDS: PANTOPRAZOLE 40 MG TAB PO SCH (09:58)
[2019-07-17] MEDS: FERROUS SULFATE 325 MG TAB PO SCH (12:00)
[2019-07-17 13:00] VITALS: BP 149/69
[2019-07-17 13:32] LABS: Urine Bacteria FEW /hpf (None Seen); Urine Blood Negative /uL (Negative); Urine WBC 47 /hpf (0 - 5)
[2019-07-17 17:00] VITALS: BP 137/63
[2019-07-17 22:00] VITALS: BP 142/70
[2019-07-17] MEDS: LINEZOLID 600MG TABLET PO SCH (22:04)
[2019-07-18] VITALS (7 sets, daily range): BP systolic 143–159; BP diastolic 65–77
[2019-07-18] MEDS: CLOPIDOGREL BISULFATE 75 MG TAB PO SCH (10:09)
[2019-07-18] MEDS: CARVEDILOL 12.5 MG TAB PO SCH ×2 (10:09→21:46)
[2019-07-18] MEDS: amLODIPine BESYLATE 5 MG TAB PO SCH (10:10)
[2019-07-18] MEDS: LINEZOLID 600MG TABLET PO SCH ×2 (10:10→21:45)
[2019-07-18] MEDS: PANTOPRAZOLE 40 MG TAB PO SCH (10:10)
[2019-07-18] MEDS: FERROUS SULFATE 325 MG TAB PO SCH (12:19)
[2019-07-19 05:36] VITALS: BP 146/66
[2019-07-19 09:00] VITALS: BP 159/68
[2019-07-19] MEDS: PANTOPRAZOLE 40 MG TAB PO SCH (09:19)
[2019-07-19] MEDS: amLODIPine BESYLATE 5 MG TAB PO SCH (09:19)
[2019-07-19] MEDS: CARVEDILOL 12.5 MG TAB PO SCH (09:19)
[2019-07-19] MEDS: CLOPIDOGREL BISULFATE 75 MG TAB PO SCH (09:21)
[2019-07-19] MEDS: LINEZOLID 600MG TABLET PO SCH (09:22)
[2019-07-19] MEDS: FERROUS SULFATE 325 MG TAB PO SCH (11:44)
[2019-07-19 13:00] VITALS: BP 132/69
== END 2019-07-19 16:20 | disposition home or self-care (01) | DRG 871 ==
LOC: EDBD 20:44 → ER 20:46 → TELE 20:47 → TELE-WESTW 07-14 15:37
PROVIDERS: ADMIT Nurse Practitioner Acute Care; ATTEND Internal Medicine
DX: A41.9 Sepsis, unspecified organism (principal); G92 Toxic encephalopathy; N17.0 Acute kidney failure with tubular necrosis; N18.4 Chronic kidney disease, stage 4 (severe); N39.0 Urinary tract infection, site not specified; E44.0 Moderate protein-calorie malnutrition; I50.22 Chronic systolic (congestive) heart failure; I13.0 Hypertensive heart and chronic kidney disease with heart failure and stage 1 through stage 4 chronic kidney disease, or unspecified chronic kidney disease; E87.6 Hypokalemia; D63.8 Anemia in other chronic diseases classified elsewhere; J44.9 Chronic obstructive pulmonary disease, unspecified; F03.90 Unspecified dementia, unspecified severity, without behavioral disturbance, psychotic disturbance, mood disturbance, and anxiety; E11.22 Type 2 diabetes mellitus with diabetic chronic kidney disease; I25.10 Atherosclerotic heart disease of native coronary artery without angina pectoris; M19.90 Unspecified osteoarthritis, unspecified site; F41.9 Anxiety disorder, unspecified; Z03.818 Encounter for observation for suspected exposure to other biological agents ruled out; Z79.899 Other long term (current) drug therapy; Z79.4 Long term (current) use of insulin; Z83.3 Family history of diabetes mellitus; Z80.3 Family history of malignant neoplasm of breast; Z82.49 Family history of ischemic heart disease and other diseases of the circulatory system; Z82.3 Family history of stroke; Z80.0 Family history of malignant neoplasm of digestive organs; Z82.5 Family history of asthma and other chronic lower respiratory diseases; Z82.0 Family history of epilepsy and other diseases of the nervous system; Z81.8 Family history of other mental and behavioral disorders; Z82.62 Family history of osteoporosis; Z80.1 Family history of malignant neoplasm of trachea, bronchus and lung; Z80.41 Family history of malignant neoplasm of ovary; Z82.61 Family history of arthritis; Z79.84 Long term (current) use of oral hypoglycemic drugs; Z68.22 Body mass index [BMI] 22.0-22.9, adult; Z95.1 Presence of aortocoronary bypass graft; Z95.5 Presence of coronary angioplasty implant and graft; Z87.440 Personal history of urinary (tract) infections
CPT/HCPCS: 36415; 51702; 70450; 71045; 80048; 80053; 80307; 80320; 81001; 82728; 82962; 83605; 83735; 84484; 85025; 85379; 85610; 85730; 87040; 87070; 87081; 87086; 87804; 87880; 93005; 96365; 96367; 96375; 97530; C9113; G0378; J0696; J3480; J3490

== ENCOUNTER 2019-08-01 23:30 | Inpatient (IN) | payer MEDICARE, OTHER ==
[~2019-08-01] VITALS: Ht 157.5 cm; Wt 67.9 kg
[~2019-08-01 23:30] MED LIST changes: +ACET-1156 PO; +ALLO100T PO; -AML5T PO; +BUME1TAB26 PO; -BUME1TAB3 PO; -CITA-73 PO; -CLON0.5T PO; -INSUINJ37 SUBCUT; +LINE1TAB6 PO; +NIFE1TAB31 PO; -PANT40TA2 PO; +SUCR1TAB PO; -TRAM50TA2 PO
[2019-08-02] MEDS ORDERED: dilTIAZem 25 MG/5 ML VIAL IV ONE
[2019-08-02 00:54] LABS: Basophils # (auto) 0.1 10 ^3/uL (0-0.2); Basophils % (auto) 0.4 % (0.0-2.0); Eosinophils # (auto) 0.1 10 ^3/uL (0-0.8); Eosinophils % (auto) 0.8 % (0.0-7.0); Hematocrit 28.4 % (36.0-46.0); Lymphocytes # (auto) 0.6 10 ^3/uL (0.4-5.4); Lymphocytes % (auto) 4.3 % (10.0-50.0); Mean Corpuscular Hemoglobin 27.6 pg (28.0-32.0); Mean Corpuscular Hgb Conc. 31.7 g/dL (32.0-36.0); Mean Corpuscular Volume 87.1 fL (80.0-100.0); Monocytes # (auto) 1.7 10 ^3/uL (0-1.3); Neutrophils # (auto) 10.8 10 ^3/uL (1.6-8.6); Neutrophils % (auto) 81.5 % (37.0-80.0); Nucleated Red Blood Cells % 0.1 %; Platelet Count (auto) 450 10^3/uL (140-450); Red Blood Cells 3.26 10^6/uL (4.0-5.20); Red Cell Distribution Width 17.5 % (11.8-14.3); White Blood Cell 13.3 10^3/uL (4.4-10.8)
[2019-08-02 01:09] LABS: INR 1.55 (0.9-1.15); Partial Thromboplastin Time 28.7 sec (23.64-32.05)
[2019-08-02 01:18] LABS: Albumin 1.9 g/dL (3.4-5.0); BUN/Creatinine Ratio 16.7; Calcium 7.8 mg/dL (8.5-10.1); Magnesium 1.5 mg/dL (1.6-2.6); Potassium 3.2 mmol/L (3.5-5.1)
[2019-08-02 01:26] LABS: Bilirubin, Total 0.3 mg/dL (0.2-1.0); Total Protein 5.6 g/dL (6.4-8.2)
[2019-08-02] MEDS ORDERED: ENOXAPARIN SOD 60 MG/0.6 ML SYRINGE SC ONE (07:30)
[2019-08-02] MEDS ORDERED: ONDANSETRON HCL 4 MG/2 ML VIAL IV PRN (07:30)
[2019-08-02] MEDS ORDERED: TEMAZEPAM 15 MG CAP PO PRN (07:30)
[2019-08-02] MEDS ORDERED: NITROGLYCERIN 0.4 MG SL TAB SL PRN (07:30)
[2019-08-02] MEDS ORDERED: MORPHINE SULF INJ 2 MG/ML SYRINGE 1ML IV PRN (07:30)
[2019-08-02] MEDS ORDERED: POTASSIUM CHL 20 Meq TABLET PO ONE (07:30)
[2019-08-02] MEDS ORDERED: DEXTROSE (50%) 50ML SYRG IV PRN (07:30)
[2019-08-02] MEDS: MAGNESIUM SULFATE 1GM/100ML 100 ML IV SCH ×2 (09:03→11:19)
[2019-08-02 09:50] VITALS: BP 156/61
[2019-08-02] MEDS ORDERED: NIFEdipine ER 30 MG TAB PO SCH (10:00)
[2019-08-02] MEDS ORDERED: ALLOPURINOL 100 MG TAB PO SCH (10:00)
[2019-08-02] MEDS ORDERED: PANTOPRAZOLE 40 MG TAB PO SCH (10:00)
[2019-08-02 10:10] VITALS: BP 156/61
[2019-08-02] MEDS: ASPirin 81 mg TAB PO SCH (11:19)
[2019-08-02] MEDS: CLOPIDOGREL BISULFATE 75 MG TAB PO SCH (11:20)
[2019-08-02] MEDS: CARVEDILOL 12.5 MG TAB PO SCH ×2 (11:20→21:56)
[2019-08-02] MEDS: InsuLIN REG 1unit/0.01ml Soln (100units/ml) SC SCH ×3 (11:30→21:58)
[2019-08-02] MEDS: ACCU-CHEK COMFORT CURVE STRIP VI SCH ×3 (11:30→21:57)
[2019-08-02 13:00] VITALS: BP 142/56
[2019-08-02] MEDS ORDERED: ERTAPENEM SOD INJ 1 GM in SODIUM CHL 0.9% 50 ML IV ONE (14:00)
[2019-08-02] MEDS ORDERED: POTASSIUM CHLORIDE 20 MEQ, LIDOCAINE 1% (LOCAL ANESTH.) 2 ML in SODIUM CHL 0.9% 100 ML IV ONE (14:00)
[2019-08-02 16:49] VITALS: BP 146/66
[2019-08-02] MEDS ORDERED: FUROSEMIDE 40 MG/4 ML VIAL IV SCH (18:00)
[2019-08-02 18:43] LABS: Urine Bacteria NONE SEEN /hpf (None Seen); Urine Blood 1+ /uL (Negative); Urine Budding Yeast MODERATE /hpf (None Seen); Urine Specific Gravity 1.014 (1.001-1.035); Urine WBC 1392 /hpf (0 - 5); Urine WBC Clumps PRESENT /hpf (None Seen)
[2019-08-02] MEDS: LINEZOLID 600MG/300ML 300 ML IV SCH (21:17)
[2019-08-02 22:00] VITALS: BP 162/78
[2019-08-02] MEDS: ACETAMINOPHEN 325 MG TAB PO PRN (22:02)
[2019-08-03 05:00] VITALS: BP 160/75
[2019-08-03] MEDS: InsuLIN REG 1unit/0.01ml Soln (100units/ml) SC SCH ×4 (06:30→22:40)
[2019-08-03] MEDS: ACCU-CHEK COMFORT CURVE STRIP VI SCH ×4 (06:31→22:40)
[2019-08-03 06:48] LABS: Hematocrit 27.3 % (36.0-46.0); Mean Corpuscular Hemoglobin 28.5 pg (28.0-32.0); Mean Corpuscular Hgb Conc. 32.9 g/dL (32.0-36.0); Mean Corpuscular Volume 86.7 fL (80.0-100.0); Platelet Count (auto) 477 10^3/uL (140-450); Red Blood Cells 3.15 10^6/uL (4.0-5.20); Red Cell Distribution Width 16.9 % (11.8-14.3)
[2019-08-03 06:53] LABS: Band Neutrophils % (manual) 0; Basophils % (manual) 0 (0.0-2.0); Blast Cells 0; Metamyelocytes % 0; Myelocytes % 0; Promyelocytes % 0; Reactive Lymphocytes 0
[2019-08-03 06:58] LABS: Albumin 1.9 g/dL (3.4-5.0); Calcium 8.5 mg/dL (8.5-10.1); Potassium 3.5 mmol/L (3.5-5.1)
[2019-08-03 07:02] LABS: BUN/Creatinine Ratio 18.8; Bilirubin, Total 0.2 mg/dL (0.2-1.0); Total Protein 5.8 g/dL (6.4-8.2)
[2019-08-03 07:06] LABS: Eosinophils % (manual) 4 (0-7); Lymphocytes % (manual) 18 (10.0-50.0); Monocytes % (manual) 6 (0-12)
[2019-08-03 08:39] VITALS: BP 162/92
[2019-08-03] MEDS: FAMOTIDINE (10MG/ML) 2ML VL IV SCH (10:52)
[2019-08-03] MEDS: ASPirin 81 mg TAB PO SCH (10:52)
[2019-08-03] MEDS: LINEZOLID 600MG/300ML 300 ML IV SCH ×2 (10:52→22:39)
[2019-08-03] MEDS: FUROSEMIDE 40 MG/4 ML VIAL IV SCH (10:52)
[2019-08-03] MEDS: CLOPIDOGREL BISULFATE 75 MG TAB PO SCH (10:53)
[2019-08-03] MEDS: CARVEDILOL 12.5 MG TAB PO SCH ×2 (10:53→22:44)
[2019-08-03 13:00] VITALS: BP 151/74
[2019-08-03 17:00] VITALS: BP 163/74
[2019-08-03 21:33] VITALS: BP 165/87
[2019-08-03] MEDS: MUPIROCIN 2% OINT 15gm or 22gm EACHNOSTRI SCH (22:39)
[2019-08-03] MEDS: ACETAMINOPHEN 325 MG TAB PO PRN (22:44)
[2019-08-04 05:00] VITALS: BP 128/64
[2019-08-04] MEDS: InsuLIN REG 1unit/0.01ml Soln (100units/ml) SC SCH ×4 (06:28→22:00)
[2019-08-04] MEDS: ACCU-CHEK COMFORT CURVE STRIP VI SCH ×4 (06:29→22:30)
[2019-08-04 08:00] VITALS: BP 157/71
[2019-08-04 09:00] VITALS: BP 157/71
[2019-08-04] MEDS: MUPIROCIN 2% OINT 15gm or 22gm EACHNOSTRI SCH ×2 (09:49→22:30)
[2019-08-04] MEDS: FAMOTIDINE (10MG/ML) 2ML VL IV SCH (09:51)
[2019-08-04] MEDS: FUROSEMIDE 40 MG/4 ML VIAL IV SCH (09:51)
[2019-08-04] MEDS: ASPirin 81 mg TAB PO SCH (09:52)
[2019-08-04] MEDS: LINEZOLID 600MG/300ML 300 ML IV SCH ×2 (09:52→22:30)
[2019-08-04] MEDS: CARVEDILOL 12.5 MG TAB PO SCH ×2 (09:54→22:31)
[2019-08-04] MEDS: CLOPIDOGREL BISULFATE 75 MG TAB PO SCH (09:56)
[2019-08-04 11:24] LABS: Mean Corpuscular Volume 85.9 fL (80.0-100.0)
[2019-08-04 11:27] LABS: Hemoglobin 9.6 g/dL (12.2-16.2); Mean Corpuscular Hemoglobin 28.4 pg (28.0-32.0); Mean Corpuscular Hgb Conc. 33.1 g/dL (32.0-36.0); Platelet Count (auto) 614 10^3/uL (140-450); Red Blood Cells 3.38 10^6/uL (4.0-5.20); Red Cell Distribution Width 17.1 % (11.8-14.3); White Blood Cell 10.9 10^3/uL (4.4-10.8)
[2019-08-04 11:33] LABS: Band Neutrophils % (manual) 0; Basophils % (manual) 0 (0.0-2.0); Blast Cells 0; Metamyelocytes % 0; Myelocytes % 0; Promyelocytes % 0; Reactive Lymphocytes 0
[2019-08-04 12:04] LABS: Eosinophils % (manual) 2 (0-7); Lymphocytes % (manual) 8 (10.0-50.0); Monocytes % (manual) 7 (0-12)
[2019-08-04 13:00] VITALS: BP 132/59
[2019-08-04 17:00] VITALS: BP 124/59
[2019-08-04 21:37] VITALS: BP 150/85
[2019-08-05 05:05] VITALS: BP 140/73
[2019-08-05] MEDS: InsuLIN REG 1unit/0.01ml Soln (100units/ml) SC SCH ×4 (06:17→22:00)
[2019-08-05] MEDS: ACCU-CHEK COMFORT CURVE STRIP VI SCH ×4 (06:33→22:17)
[2019-08-05 09:00] VITALS: BP 142/66
[2019-08-05] MEDS: LINEZOLID 600MG/300ML 300 ML IV SCH ×2 (10:36→22:17)
[2019-08-05] MEDS: MUPIROCIN 2% OINT 15gm or 22gm EACHNOSTRI SCH ×2 (10:36→22:50)
[2019-08-05] MEDS: FAMOTIDINE (10MG/ML) 2ML VL IV SCH (10:36)
[2019-08-05] MEDS: ASPirin 81 mg TAB PO SCH (10:36)
[2019-08-05] MEDS: CLOPIDOGREL BISULFATE 75 MG TAB PO SCH (10:37)
[2019-08-05] MEDS: CARVEDILOL 12.5 MG TAB PO SCH ×2 (10:37→22:18)
[2019-08-05] MEDS ORDERED: ERTAPENEM SOD INJ 0.5 GM in SODIUM CHL 0.9% 50 ML IV ONE (10:45)
[2019-08-05 13:00] VITALS: BP 148/72
[2019-08-05 16:31] VITALS: BP 142/68
[2019-08-05 22:00] VITALS: BP 144/99
[2019-08-06] VITALS (7 sets, daily range): BP systolic 103–158; BP diastolic 60–84
[2019-08-06] MEDS: InsuLIN REG 1unit/0.01ml Soln (100units/ml) SC SCH ×4 (06:12→22:00)
[2019-08-06] MEDS: ACCU-CHEK COMFORT CURVE STRIP VI SCH ×4 (06:12→22:00)
[2019-08-06 06:41] LABS: Hemoglobin 8.9 g/dL (12.2-16.2); Red Cell Distribution Width 17.4 % (11.8-14.3)
[2019-08-06 06:43] LABS: Hematocrit 26.7 % (36.0-46.0); Mean Corpuscular Hemoglobin 28.5 pg (28.0-32.0); Mean Corpuscular Hgb Conc. 33.2 g/dL (32.0-36.0); Mean Corpuscular Volume 85.8 fL (80.0-100.0); Platelet Count (auto) 589 10^3/uL (140-450); Red Blood Cells 3.11 10^6/uL (4.0-5.20); White Blood Cell 9.3 10^3/uL (4.4-10.8)
[2019-08-06 06:51] LABS: Band Neutrophils % (manual) 0; Basophils % (manual) 0 (0.0-2.0); Blast Cells 0; Metamyelocytes % 0; Promyelocytes % 0; Reactive Lymphocytes 0
[2019-08-06 07:02] LABS: Calcium 8.6 mg/dL (8.5-10.1); Potassium 3.4 mmol/L (3.5-5.1)
[2019-08-06 07:05] LABS: BUN/Creatinine Ratio 15.3
[2019-08-06 07:24] LABS: Eosinophils % (manual) 2 (0-7); Lymphocytes % (manual) 9 (10.0-50.0); Monocytes % (manual) 8 (0-12); Myelocytes % 2
[2019-08-06] MEDS: MUPIROCIN 2% OINT 15gm or 22gm EACHNOSTRI SCH ×2 (09:46→23:11)
[2019-08-06] MEDS: FAMOTIDINE (10MG/ML) 2ML VL IV SCH (09:47)
[2019-08-06] MEDS: ASPirin 81 mg TAB PO SCH (09:48)
[2019-08-06] MEDS: LINEZOLID 600MG/300ML 300 ML IV SCH (09:48)
[2019-08-06] MEDS: CLOPIDOGREL BISULFATE 75 MG TAB PO SCH (09:49)
[2019-08-06] MEDS: CARVEDILOL 12.5 MG TAB PO SCH ×2 (09:49→23:12)
[2019-08-06] MEDS ORDERED: ERTAPENEM SOD INJ 0.5 GM in SODIUM CHL 0.9% 50 ML IV SCH (10:00)
[2019-08-06] MEDS ORDERED: levoFLOXacin 250MG 50 ML IV ONE (11:00)
[2019-08-06] MEDS ORDERED: POTASSIUM EFFERVESENT TAB 25 MEQ PO ONE (11:00)
[2019-08-06] MEDS ORDERED: FUROSEMIDE 20 MG/2 ML VIAL IV ONE (11:00)
[2019-08-07 04:43] VITALS: BP 165/75
[2019-08-07] MEDS ORDERED: cloNIDine HCL 0.1 MG TAB PO ONE (04:45)
[2019-08-07] MEDS: InsuLIN REG 1unit/0.01ml Soln (100units/ml) SC SCH ×4 (06:19→21:18)
[2019-08-07] MEDS: ACCU-CHEK COMFORT CURVE STRIP VI SCH ×4 (06:20→21:18)
[2019-08-07 06:24] LABS: Calcium 8.7 mg/dL (8.5-10.1); Potassium 3.7 mmol/L (3.5-5.1)
[2019-08-07 06:27] LABS: BUN/Creatinine Ratio 15.9
[2019-08-07 08:00] VITALS: BP 143/63
[2019-08-07 09:00] VITALS: BP 134/63
[2019-08-07] MEDS ORDERED: levoFLOXacin 250MG 50 ML IV SCH (10:00)
[2019-08-07] MEDS: MUPIROCIN 2% OINT 15gm or 22gm EACHNOSTRI SCH ×2 (10:05→21:17)
[2019-08-07] MEDS: FAMOTIDINE (10MG/ML) 2ML VL IV SCH (10:09)
[2019-08-07] MEDS: ASPirin 81 mg TAB PO SCH (10:09)
[2019-08-07] MEDS: CLOPIDOGREL BISULFATE 75 MG TAB PO SCH (10:10)
[2019-08-07] MEDS: CARVEDILOL 12.5 MG TAB PO SCH ×2 (10:10→21:18)
[2019-08-07 13:00] VITALS: BP 126/69
[2019-08-07 17:00] VITALS: BP 139/74
[2019-08-07 21:35] VITALS: BP 142/74
[2019-08-08 04:29] VITALS: BP 147/74
[2019-08-08] MEDS: InsuLIN REG 1unit/0.01ml Soln (100units/ml) SC SCH ×4 (06:01→21:24)
[2019-08-08] MEDS: ACCU-CHEK COMFORT CURVE STRIP VI SCH ×4 (06:01→21:24)
[2019-08-08 07:28] LABS: Hematocrit 23.9 % (36.0-46.0); Mean Corpuscular Hemoglobin 28.7 pg (28.0-32.0)
[2019-08-08 07:31] LABS: Mean Corpuscular Hgb Conc. 33.3 g/dL (32.0-36.0); Mean Corpuscular Volume 86.2 fL (80.0-100.0); Platelet Count (auto) 523 10^3/uL (140-450); Red Blood Cells 2.77 10^6/uL (4.0-5.20); Red Cell Distribution Width 17.1 % (11.8-14.3); White Blood Cell 8.7 10^3/uL (4.4-10.8)
[2019-08-08 07:39] LABS: Basophils % (manual) 0 (0.0-2.0); Blast Cells 0; Metamyelocytes % 0; Promyelocytes % 0; Reactive Lymphocytes 0
[2019-08-08 08:45] LABS: Band Neutrophils % (manual) 3; Eosinophils % (manual) 7 (0-7); Lymphocytes % (manual) 15 (10.0-50.0); Monocytes % (manual) 9 (0-12); Myelocytes % 1
[2019-08-08 09:00] VITALS: BP 160/74
[2019-08-08] MEDS ORDERED: CIPROFLOXACIN 400MG/200ML 200 ML IV ONE (11:00)
[2019-08-08] MEDS: ACETAMINOPHEN 325 MG TAB PO PRN (11:08)
[2019-08-08] MEDS: FAMOTIDINE (10MG/ML) 2ML VL IV SCH (11:08)
[2019-08-08] MEDS: CLOPIDOGREL BISULFATE 75 MG TAB PO SCH (11:08)
[2019-08-08] MEDS: MUPIROCIN 2% OINT 15gm or 22gm EACHNOSTRI SCH (11:08)
[2019-08-08] MEDS: ASPirin 81 mg TAB PO SCH (11:08)
[2019-08-08] MEDS: CARVEDILOL 12.5 MG TAB PO SCH ×2 (11:25→21:23)
[2019-08-08 12:26] LABS: Urine Bacteria MOD /hpf (None Seen); Urine Blood 1+ /uL (Negative); Urine Mucus FEW (None Seen); Urine Specific Gravity 1.016 (1.001-1.035); Urine WBC 1599 /hpf (0 - 5); Urine WBC Clumps PRESENT /hpf (None Seen)
[2019-08-08 12:34] LABS: Urine Budding Yeast FEW /hpf (None Seen)
[2019-08-08 12:40] VITALS: BP 128/53
[2019-08-08 16:43] VITALS: BP 155/70
[2019-08-08] MEDS: FERROUS SULFATE 325 MG TAB PO SCH (17:47)
[2019-08-08] MEDS: LINEZOLID 600MG/300ML 300 ML IV SCH (21:23)
[2019-08-08 21:30] VITALS: BP 155/75
[2019-08-09 04:30] VITALS: BP 151/69
[2019-08-09] MEDS: InsuLIN REG 1unit/0.01ml Soln (100units/ml) SC SCH ×4 (06:23→23:19)
[2019-08-09] MEDS: ACCU-CHEK COMFORT CURVE STRIP VI SCH ×4 (06:23→22:00)
[2019-08-09] MEDS: FERROUS SULFATE 325 MG TAB PO SCH ×2 (08:00→17:42)
[2019-08-09 09:00] VITALS: BP 139/66
[2019-08-09] MEDS: ASPirin 81 mg TAB PO SCH (09:45)
[2019-08-09] MEDS: CLOPIDOGREL BISULFATE 75 MG TAB PO SCH (09:45)
[2019-08-09] MEDS: CARVEDILOL 12.5 MG TAB PO SCH ×2 (09:47→23:18)
[2019-08-09] MEDS: FAMOTIDINE (10MG/ML) 2ML VL IV SCH (11:53)
[2019-08-09] MEDS: CIPROFLOXACIN 400MG/200ML 200 ML IV SCH (11:54)
[2019-08-09 13:00] VITALS: BP 159/79
[2019-08-09] MEDS: LINEZOLID 600MG/300ML 300 ML IV SCH ×2 (13:00→23:17)
[2019-08-09 14:44] LABS: Hematocrit 25.6 % (36.0-46.0); Mean Corpuscular Hgb Conc. 31.4 g/dL (32.0-36.0); Mean Corpuscular Volume 92.3 fL (80.0-100.0); Platelet Count (auto) 415 10^3/uL (140-450); Red Blood Cells 2.77 10^6/uL (4.0-5.20); Red Cell Distribution Width 17.8 % (11.8-14.3); White Blood Cell 8.3 10^3/uL (4.4-10.8)
[2019-08-09 15:14] LABS: Band Neutrophils % (manual) 0; Basophils % (manual) 0 (0.0-2.0); Blast Cells 0; Monocytes % (manual) 0 (0-12); Promyelocytes % 0; Reactive Lymphocytes 0
[2019-08-09 15:47] LABS: Eosinophils % (manual) 2 (0-7); Lymphocytes % (manual) 16 (10.0-50.0); Metamyelocytes % 3; Myelocytes % 2
[2019-08-09 17:00] VITALS: BP 155/83
[2019-08-09 20:00] VITALS: BP 151/72
[2019-08-09 21:42] VITALS: BP 152/70
[2019-08-10 05:00] VITALS: BP 155/78
[2019-08-10] MEDS: ACCU-CHEK COMFORT CURVE STRIP VI SCH ×4 (06:35→22:00)
[2019-08-10] MEDS: InsuLIN REG 1unit/0.01ml Soln (100units/ml) SC SCH ×4 (06:36→22:00)
[2019-08-10] MEDS: CIPROFLOXACIN 400MG/200ML 200 ML IV SCH (08:51)
[2019-08-10] MEDS: FERROUS SULFATE 325 MG TAB PO SCH ×2 (08:51→18:50)
[2019-08-10 09:00] VITALS: BP 134/72
[2019-08-10] MEDS: CARVEDILOL 12.5 MG TAB PO SCH ×2 (10:00→22:31)
[2019-08-10] MEDS: ASPirin 81 mg TAB PO SCH (10:00)
[2019-08-10] MEDS: CLOPIDOGREL BISULFATE 75 MG TAB PO SCH (10:00)
[2019-08-10] MEDS: FAMOTIDINE (10MG/ML) 2ML VL IV SCH (11:42)
[2019-08-10] MEDS: LINEZOLID 600MG/300ML 300 ML IV SCH ×2 (11:43→22:31)
[2019-08-10 13:00] VITALS: BP 156/67
[2019-08-10 17:00] VITALS: BP 140/62
[2019-08-10 20:00] VITALS: BP 135/73
[2019-08-10 22:00] VITALS: BP 135/73
[2019-08-11 05:00] VITALS: BP 134/63
[2019-08-11 05:38] LABS: Hemoglobin 8.2 g/dL (12.2-16.2)
[2019-08-11 05:41] LABS: Hematocrit 24.3 % (36.0-46.0); Mean Corpuscular Hemoglobin 28.7 pg (28.0-32.0); Mean Corpuscular Hgb Conc. 33.8 g/dL (32.0-36.0); Platelet Count (auto) 339 10^3/uL (140-450); Red Blood Cells 2.85 10^6/uL (4.0-5.20); Red Cell Distribution Width 16.6 % (11.8-14.3); White Blood Cell 11.5 10^3/uL (4.4-10.8)
[2019-08-11 05:47] LABS: Band Neutrophils % (manual) 0; Basophils % (manual) 0 (0.0-2.0); Blast Cells 0; Metamyelocytes % 0; Myelocytes % 0; Promyelocytes % 0; Reactive Lymphocytes 0
[2019-08-11 05:56] LABS: BUN/Creatinine Ratio 12.7; Calcium 8.3 mg/dL (8.5-10.1); Potassium 3.5 mmol/L (3.5-5.1)
[2019-08-11 06:55] LABS: Eosinophils % (manual) 6 (0-7); Lymphocytes % (manual) 16 (10.0-50.0); Monocytes % (manual) 8 (0-12)
[2019-08-11] MEDS: InsuLIN REG 1unit/0.01ml Soln (100units/ml) SC SCH ×4 (06:55→23:25)
[2019-08-11] MEDS: ACCU-CHEK COMFORT CURVE STRIP VI SCH ×4 (06:55→22:00)
[2019-08-11 08:45] VITALS: BP 145/76
[2019-08-11] MEDS: ASPirin 81 mg TAB PO SCH (09:32)
[2019-08-11] MEDS: CIPROFLOXACIN 400MG/200ML 200 ML IV SCH (09:33)
[2019-08-11] MEDS: CLOPIDOGREL BISULFATE 75 MG TAB PO SCH (09:33)
[2019-08-11] MEDS: FERROUS SULFATE 325 MG TAB PO SCH ×2 (09:33→18:25)
[2019-08-11] MEDS: CARVEDILOL 12.5 MG TAB PO SCH ×2 (09:33→22:39)
[2019-08-11] MEDS: FAMOTIDINE (10MG/ML) 2ML VL IV SCH (09:33)
[2019-08-11] MEDS: LINEZOLID 600MG/300ML 300 ML IV SCH ×2 (11:49→22:37)
[2019-08-11] MEDS: SODIUM CHLORIDE 0.9% 1,000 ML IV SCH (11:49)
[2019-08-11 11:50] VITALS: BP 123/53
[2019-08-11] MEDS: Glucerna Carbsteady SHAKE Vanilla 8oz PO SCH ×2 (14:07→18:25)
[2019-08-11 16:00] VITALS: BP 141/89
[2019-08-11 20:00] VITALS: BP 151/72
[2019-08-11 22:00] VITALS: BP 151/72
[2019-08-12 05:00] VITALS: BP 158/69
[2019-08-12] MEDS: SODIUM CHLORIDE 0.9% 1,000 ML IV SCH (05:07)
[2019-08-12] MEDS: ACCU-CHEK COMFORT CURVE STRIP VI SCH ×3 (06:24→16:46)
[2019-08-12] MEDS: InsuLIN REG 1unit/0.01ml Soln (100units/ml) SC SCH ×3 (06:26→16:46)
[2019-08-12 06:46] LABS: Hematocrit 25.1 % (36.0-46.0); Hemoglobin 8.5 g/dL (12.2-16.2); Mean Corpuscular Hemoglobin 28.8 pg (28.0-32.0); Mean Corpuscular Hgb Conc. 33.7 g/dL (32.0-36.0); Mean Corpuscular Volume 85.3 fL (80.0-100.0); Platelet Count (auto) 330 10^3/uL (140-450); Red Blood Cells 2.94 10^6/uL (4.0-5.20); Red Cell Distribution Width 16.8 % (11.8-14.3); White Blood Cell 11.9 10^3/uL (4.4-10.8)
[2019-08-12 07:02] LABS: Basophils % (manual) 0 (0.0-2.0); Blast Cells 0; Metamyelocytes % 0; Myelocytes % 0; Promyelocytes % 0; Reactive Lymphocytes 0
[2019-08-12 07:35] LABS: BUN/Creatinine Ratio 11.1; Calcium 8.2 mg/dL (8.5-10.1); Potassium 3.9 mmol/L (3.5-5.1)
[2019-08-12 07:36] LABS: Band Neutrophils % (manual) 1; Eosinophils % (manual) 6 (0-7); Lymphocytes % (manual) 12 (10.0-50.0); Monocytes % (manual) 5 (0-12)
[2019-08-12 08:00] VITALS: BP 151/72
[2019-08-12] MEDS: FERROUS SULFATE 325 MG TAB PO SCH (08:45)
[2019-08-12] MEDS: Glucerna Carbsteady SHAKE Vanilla 8oz PO SCH ×2 (09:58→11:37)
[2019-08-12] MEDS: CLOPIDOGREL BISULFATE 75 MG TAB PO SCH (10:43)
[2019-08-12] MEDS: CARVEDILOL 12.5 MG TAB PO SCH (10:44)
[2019-08-12] MEDS: ASPirin 81 mg TAB PO SCH (10:44)
[2019-08-12] MEDS: CIPROFLOXACIN 400MG/200ML 200 ML IV SCH (10:46)
[2019-08-12] MEDS: LINEZOLID 600MG/300ML 300 ML IV SCH (10:47)
[2019-08-12] MEDS: FAMOTIDINE (10MG/ML) 2ML VL IV SCH (10:48)
[2019-08-12 13:00] VITALS: BP 148/73
[2019-08-12 16:19] VITALS: BP 148/73
[2019-08-12 16:59] VITALS: BP 153/72
== END 2019-08-12 17:30 | disposition home health service (06) | DRG 871 ==
LOC: ER 23:30 → EDBD 23:30 → TELE 23:31 → TELE-EAST 08-02 10:00
PROVIDERS: ADMIT Nurse Practitioner; ATTEND Internal Medicine
DX: A41.9 Sepsis, unspecified organism (principal); L89.153 Pressure ulcer of sacral region, stage 3; I21.4 Non-ST elevation (NSTEMI) myocardial infarction; G93.41 Metabolic encephalopathy; I50.23 Acute on chronic systolic (congestive) heart failure; E87.1 Hypo-osmolality and hyponatremia; E44.0 Moderate protein-calorie malnutrition; N39.0 Urinary tract infection, site not specified; D68.69 Other thrombophilia; I13.0 Hypertensive heart and chronic kidney disease with heart failure and stage 1 through stage 4 chronic kidney disease, or unspecified chronic kidney disease; N18.4 Chronic kidney disease, stage 4 (severe); D64.9 Anemia, unspecified; E83.42 Hypomagnesemia; Z66 Do not resuscitate; I48.91 Unspecified atrial fibrillation; E87.6 Hypokalemia; F03.90 Unspecified dementia, unspecified severity, without behavioral disturbance, psychotic disturbance, mood disturbance, and anxiety; R62.7 Adult failure to thrive; E11.22 Type 2 diabetes mellitus with diabetic chronic kidney disease; E78.5 Hyperlipidemia, unspecified; I70.0 Atherosclerosis of aorta; F41.9 Anxiety disorder, unspecified; I25.10 Atherosclerotic heart disease of native coronary artery without angina pectoris; J44.9 Chronic obstructive pulmonary disease, unspecified; Z79.02 Long term (current) use of antithrombotics/antiplatelets; Z80.0 Family history of malignant neoplasm of digestive organs; Z80.1 Family history of malignant neoplasm of trachea, bronchus and lung; Z80.41 Family history of malignant neoplasm of ovary; Z80.8 Family history of malignant neoplasm of other organs or systems; Z81.8 Family history of other mental and behavioral disorders; Z82.0 Family history of epilepsy and other diseases of the nervous system; Z82.49 Family history of ischemic heart disease and other diseases of the circulatory system; Z82.3 Family history of stroke; Z82.5 Family history of asthma and other chronic lower respiratory diseases; Z82.62 Family history of osteoporosis; Z83.3 Family history of diabetes mellitus; Z95.1 Presence of aortocoronary bypass graft; Z80.3 Family history of malignant neoplasm of breast; Z68.27 Body mass index [BMI] 27.0-27.9, adult; B96.5 Pseudomonas (aeruginosa) (mallei) (pseudomallei) as the cause of diseases classified elsewhere
CPT/HCPCS: 36415; 70450; 71045; 80048; 80053; 81001; 82962; 83036; 83735; 83880; 84443; 84484; 85007; 85025; 85027; 85610; 85730; 87081; 87086; 87088; 87186; 92610; 93005; 93306; 96372; 96374; 97110; 97530; G0378; J1335; J1815; J2001; J3490

== ENCOUNTER 2019-10-25 13:38 | Inpatient (IN) | payer MEDICARE, OTHER ==
[~2019-10-25] VITALS: Ht 165.1 cm; Wt 57.5 kg
[2019-10-25] MEDS ORDERED: SODIUM CHLORIDE 0.9% 500 ML IVB ONE (13:49)
[2019-10-25] MEDS ORDERED: ETOMIDATE (2MG/ML) 20ML VIAL IV ONE (14:00)
[2019-10-25] MEDS ORDERED: SUCCINYLCHOLINE CHLORIDE 20 MG/ML 10ML VIAL IV ONE (14:00)
[2019-10-25 14:59] LABS: Basophils # (auto) 0 10 ^3/uL (0-0.2); Eosinophils # (auto) 0 10 ^3/uL (0-0.8); Eosinophils % (auto) 0.2 % (0.0-7.0); Lymphocytes # (auto) 0.6 10 ^3/uL (0.4-5.4); Lymphocytes % (auto) 5.7 % (10.0-50.0); Monocytes # (auto) 0.6 10 ^3/uL (0-1.3)
[2019-10-25 15:02] LABS: Basophils % (auto) 0.2 % (0.0-2.0); Hematocrit 25.7 % (36.0-46.0); Hemoglobin 8.1 g/dL (12.2-16.2); Mean Corpuscular Hemoglobin 29.1 pg (28.0-32.0); Mean Corpuscular Hgb Conc. 31.6 g/dL (32.0-36.0); Mean Corpuscular Volume 92.3 fL (80.0-100.0); Monocytes % (auto) 6.5 % (0.0-12.0); Neutrophils # (auto) 8.6 10 ^3/uL (1.6-8.6); Neutrophils % (auto) 87.4 % (37.0-80.0); Nucleated Red Blood Cells % 0.1 %; Platelet Count (auto) 437 10^3/uL (140-450); Red Blood Cells 2.79 10^6/uL (4.0-5.20); Red Cell Distribution Width 19.4 % (11.8-14.3); White Blood Cell 9.9 10^3/uL (4.4-10.8)
[2019-10-25 15:09] LABS: Albumin 2.3 g/dL (3.4-5.0); Anion Gap 11 (5-15); Blood Urea Nitrogen 79 mg/dL (7-18); Calcium 8.7 mg/dL (8.5-10.1); Carbon Dioxide 17 mmol/L (21-32); Chloride 106 mmol/L (98-107); Glucose 194 mg/dL (74-106); Potassium 3.5 mmol/L (3.5-5.1); Sodium 134 mmol/L (136-145)
[2019-10-25 15:12] LABS: Urine Bacteria FEW /hpf (None Seen); Urine Blood Negative /uL (Negative); Urine Hyaline Cast FEW /lpf (0 - 2); Urine Mucus FEW (None Seen); Urine Specific Gravity 1.016 (1.001-1.035); Urine WBC 15 /hpf (0 - 5)
[2019-10-25 15:13] LABS: Alanine Aminotransferase 8 U/L (13-56); Alkaline Phosphatase 46 U/L (45-117); Aspartate Aminotransferase 5 U/L (15-37); BUN/Creatinine Ratio 24.7; Bilirubin, Total 0.2 mg/dL (0.2-1.0); GFR African American 18 mL/min; GFR Non-African American 15 mL/min; Total Protein 6.1 g/dL (6.4-8.2)
[2019-10-25] MEDS ORDERED: cefTRIAXone 1GM/50ML D5W 50 ML IV ONE (16:00)
[2019-10-25 16:27] LABS: Amylase 118 U/L (25-115); Lipase 439 U/L (73-393)
[2019-10-25] MEDS ORDERED: diphenhdrAMINE HCL 50 MG/1 ML VL IV ONE (18:30)
[2019-10-25] MEDS ORDERED: MORPHINE SULF INJ 2 MG/ML SYRINGE 1ML IV PRN ×2 (19:45)
[2019-10-25] MEDS ORDERED: ONDANSETRON HCL 4 MG/2 ML VIAL IV PRN (19:45)
[2019-10-25] MEDS ORDERED: ACETAMINOPHEN 500 MG TAB PO PRN (19:45)
[2019-10-25] MEDS ORDERED: NITROGLYCERIN 0.4 MG SL TAB SL PRN (19:45)
[2019-10-25] MEDS ORDERED: traMADol HCL 50 MG TAB PO PRN (19:45)
[2019-10-25] MEDS ORDERED: FAMOTIDINE (10MG/ML) 2ML VL IV SCH (19:45)
[2019-10-25] MEDS ORDERED: FAMOTIDINE 20 MG TAB PO SCH (22:00)
[2019-10-25] MEDS: SODIUM CHLORIDE 0.9% 1,000 ML IV SCH (22:20)
[2019-10-25] MEDS: FAMOTIDINE (10MG/ML) 2ML VL IV SCH (22:21)
[2019-10-25 23:50] VITALS: BP 133/71
--- NOTE | 2019-10-25 23:50 | NUR ---
Telemetry admit from ER WILL VICENTE admitted to Telemetry unit. Patient oriented to primary RN, unit, room, bed, and unit policies regarding patient care and visiting hours. Fall and safety precautions in place. Call light within reach. Sitter at bedside for safety. Patient now on continuous telemetry monitoring, tele box # 70 and telemetry reading on arrival to unit is SR 90 bpm. Patient weighed by bedscale and encouraged to call if they need something. All questions and concerns addressed. Will continue to monitor q1h and prn.
[2019-10-26] VITALS (7 sets, daily range): BP systolic 125–147; BP diastolic 71–97
[2019-10-26] MEDS ORDERED: PNEUMOCOCCAL VACC POLYS 25 MCG/0.5 ML VIAL IM ONE (01:15)
[2019-10-26] MEDS: SODIUM CHLORIDE 0.9% 1,000 ML IV SCH ×2 (05:37→09:42)
--- NOTE | 2019-10-26 08:00 | NUR ---
Opening Shift Note Assumed care of patient, comfortably sleeping, on room air, breath sounds are even and unlabored . No S/S of distress/SOB or pain. Bed at lowest locked position and call light within reach. Will continue to monitor for changes Q1hr and PRN.
[2019-10-26] MEDS: cefTRIAXone 1GM/50ML D5W 50 ML IV SCH (09:40)
[2019-10-26] MEDS: FAMOTIDINE (10MG/ML) 2ML VL IV SCH (09:40)
--- NOTE | 2019-10-26 11:00 | NUR ---
Spoke to patients NOK, after password was provided. Update provided.
[2019-10-26 11:53] LABS: Basophils # (auto) 0 10 ^3/uL (0-0.2); Basophils % (auto) 0.3 % (0.0-2.0); Eosinophils # (auto) 0.6 10 ^3/uL (0-0.8); Eosinophils % (auto) 5.3 % (0.0-7.0); Hemoglobin 8.6 g/dL (12.2-16.2); Lymphocytes % (auto) 8.6 % (10.0-50.0); Mean Corpuscular Hemoglobin 28.7 pg (28.0-32.0); Mean Corpuscular Hgb Conc. 31.9 g/dL (32.0-36.0); Monocytes # (auto) 0.7 10 ^3/uL (0-1.3); Monocytes % (auto) 6.4 % (0.0-12.0); Neutrophils # (auto) 8.9 10 ^3/uL (1.6-8.6); Neutrophils % (auto) 79.4 % (37.0-80.0); Nucleated Red Blood Cells % 0.2 %; Platelet Count (auto) 472 10^3/uL (140-450); Red Cell Distribution Width 19.4 % (11.8-14.3); White Blood Cell 11.3 10^3/uL (4.4-10.8)
[2019-10-26 12:06] LABS: Calcium 8.5 mg/dL (8.5-10.1); Chloride 108 mmol/L (98-107); Sodium 136 mmol/L (136-145)
[2019-10-26 12:12] LABS: Alanine Aminotransferase < 6 U/L (13-56); Albumin 2.3 g/dL (3.4-5.0); Alkaline Phosphatase 48 U/L (45-117); Amylase 169 U/L (25-115); Anion Gap 10 (5-15); Aspartate Aminotransferase 7 U/L (15-37); BUN/Creatinine Ratio 25.8; Bilirubin, Total 0.2 mg/dL (0.2-1.0); Blood Urea Nitrogen 78 mg/dL (7-18); Carbon Dioxide 18 mmol/L (21-32); GFR African American 19 mL/min; GFR Non-African American 16 mL/min; Glucose 149 mg/dL (74-106); Lipase 361 U/L (73-393); Total Protein 6.1 g/dL (6.4-8.2)
[2019-10-26] MEDS ORDERED: MEROPENEM 500MG IVPB 50 ML IV ONE (12:30)
[2019-10-26] MEDS ORDERED: DEXTROSE (50%) 50ML SYRG IV PRN (13:00)
--- NOTE | 2019-10-26 13:01 | NUR ---
Dr. Cobos at bedside.
--- NOTE | 2019-10-26 13:30 | NUR ---
URINE SPECIMEN URINE COLLECTED AND SENT TO LAB VIA [employer] SYSTEM.
[2019-10-26] MEDS: SODIUM BICARBONATE 50ML VIAL 50 ML in SOD CHL 0.45% 1,000 ML IV SCH (13:48)
--- NOTE | 2019-10-26 13:50 | NUR ---
DR. Xin SANTOYO AT BEDSIDE.
[2019-10-26 14:21] LABS: Protein, Urine 397.9 mg/dL (0.0-11.9)
--- NOTE | 2019-10-26 16:16 | NUR ---
BM Patient had a bowel movement, small, soft brown. Cleansed and turned patient with help of Rosa STANLEY.
[2019-10-26] MEDS: InsuLIN REG 1unit/0.01ml Soln (100units/ml) SC SCH ×2 (17:00→21:27)
[2019-10-26] MEDS: ACCU-CHEK COMFORT CURVE STRIP VI SCH ×2 (18:14→21:26)
--- NOTE | 2019-10-26 18:44 | NUR ---
closing note Patient is comfortably sitting up in bed, on room air. CAR SEAT MAKER is assisting with feeding. No s/s of distress/noted/stated. Bed at lowest locked position and call light within reach. Will endorse care to NOC RN.
--- NOTE | 2019-10-26 19:30 | NUR ---
Opening Shift Note Assumed care of patient, awake and alert. Fall and safety precautions in place. No S/S of distress/SOB. Instructed on POC and to call for assist PRN, patient in agreement. Call light within reach. Will continue to monitor for changes Q1hr and PRN.
[2019-10-27] MEDS: SODIUM BICARBONATE 50ML VIAL 50 ML in SOD CHL 0.45% 1,000 ML IV SCH ×2 (03:45→18:45)
[2019-10-27 05:00] VITALS: BP 126/70
[2019-10-27] MEDS: InsuLIN REG 1unit/0.01ml Soln (100units/ml) SC SCH ×4 (06:12→21:01)
[2019-10-27] MEDS: ACCU-CHEK COMFORT CURVE STRIP VI SCH ×4 (06:12→21:00)
[2019-10-27 08:00] VITALS: BP 138/78
[2019-10-27 09:00] VITALS: BP 138/78
[2019-10-27] MEDS: cefTRIAXone 1GM/50ML D5W 50 ML IV SCH (09:15)
[2019-10-27] MEDS: FAMOTIDINE (10MG/ML) 2ML VL IV SCH (09:16)
[2019-10-27] MEDS: MEROPENEM 500MG IVPB 50 ML IV SCH (09:16)
--- NOTE | 2019-10-27 12:35 | NUR ---
Consent forms Attempted to get telephone consents for Left heart cath tomorrow, patient's daughter "Sakshi Cowart", [phone], shares power of deputy prosecuting attorney with her brother and is refusing any sort of invasive procedures and or surgeries. Sakshi is requesting to talk to HospitalistMD informed/ aware. Addendum: 10/27/19 at 1308 by Damaris Dunlap RN Requested for ANJUM Sakshi Supa to bring the POA forms and Advanced Directive . Per ANJUM, will try to bring them in today.
[2019-10-27 13:00] VITALS: BP 142/75
[2019-10-27 16:18] LABS: Albumin 2.4 g/dL (3.4-5.0); Calcium 8.7 mg/dL (8.5-10.1); Potassium 4.1 mmol/L (3.5-5.1)
[2019-10-27 16:21] LABS: BUN/Creatinine Ratio 25.6; Bilirubin, Total 0.2 mg/dL (0.2-1.0); Total Protein 6.2 g/dL (6.4-8.2)
[2019-10-27 17:00] VITALS: BP_SYST 136; BP_SYST 164; BP_SYST 174; BP_DIAS 71; BP_DIAS 77; BP_DIAS 80
--- NOTE | 2019-10-27 18:30 | NUR ---
[facility] Hospitalist Informed Dr. White of patients increase in wheezing, no s/s of distress noted. Stopped IV fluids. VS T 98.0, BP 148/103, RR, 30, Spo2 94% on room air. Bed at lowest locked position and call light within reach. Will continue to monitor. Addendum: 10/27/19 at 1843 by Damaris Dunlap RN Orders received from Hospitalist.
[2019-10-27] MEDS ORDERED: IPRATROPIUM BROM 0.5 MG/2.5ML INH SOL NEB PRN (18:45)
[2019-10-27] MEDS ORDERED: ALBUTEROL SULF 2.5 MG/0.5ML(0.5%) NEB SOLN NEB PRN ×2 (18:45→19:00)
[2019-10-27] MEDS ORDERED: methylPREDNISolone SOD SUCC 40 MG/ML VL IV ONE (19:00)
[2019-10-27] MEDS ORDERED: POTASSIUM EFFERVESENT TAB 25 MEQ GT ONE (19:00)
[2019-10-27] MEDS ORDERED: FUROSEMIDE 40 MG/4 ML VIAL IV ONE (19:00)
[2019-10-27] MEDS: ALBUTEROL SULF 2.5 MG/0.5ML(0.5%) NEB SOLN NEB SCH (19:08)
[2019-10-27] MEDS: IPRATROPIUM BROM 0.5 MG/2.5ML INH SOL NEB SCH (19:08)
--- NOTE | 2019-10-27 19:10 | NUR ---
RT NOTE: PT ON 2LPM NC SPO2 98%, HR 145 THEN DROPS TO 108, PT STATED SHE HAS AFIB. BS FAIRLY CLEAR BUT HAS UPPER AUDIBLE WHEEZE. MED NEB TX GIVEN WITH MINIMAL DIFFERENCE. ABG OBTAINED AND NO CRITICAL VALUES TO REPORT.
[2019-10-27] MEDS: methylPREDNISolone SOD SUCC 40 MG/ML VL IV SCH (19:21)
--- NOTE | 2019-10-27 19:28 | NUR ---
Closing Note Patient is comfortably resting in bed, on 2LNC, no s/s of distress/ sob noted/stated. Bed at lowest locked position and call light within reach. Care endorsed to NOC RN.
--- NOTE | 2019-10-27 19:35 | NUR ---
Opening Shift Note Assumed care of patient, awake and alert. No S/S of distress/SOB. Instructed on POC and to call for assist PRN, patient in agreement. Fall, aspiration, and safety precautions in place. Call light within reach. Will continue to monitor for changes Q1hr and PRN.
[2019-10-27] MEDS ORDERED: EPOETIN ALFA 10,000 UNIT/1 ML VIAL ONE (22:50)
[2019-10-27 23:18] VITALS: BP 135/79
[2019-10-28] VITALS (7 sets, daily range): BP systolic 0–160; BP diastolic 64–93
[2019-10-28] MEDS: IPRATROPIUM BROM 0.5 MG/2.5ML INH SOL NEB SCH ×4 (00:25→19:02)
[2019-10-28] MEDS: ALBUTEROL SULF 2.5 MG/0.5ML(0.5%) NEB SOLN NEB SCH ×4 (00:25→19:02)
[2019-10-28] MEDS: methylPREDNISolone SOD SUCC 40 MG/ML VL IV SCH ×2 (06:10→18:26)
[2019-10-28] MEDS: ACCU-CHEK COMFORT CURVE STRIP VI SCH ×4 (06:10→22:29)
[2019-10-28] MEDS: InsuLIN REG 1unit/0.01ml Soln (100units/ml) SC SCH ×4 (06:11→22:37)
[2019-10-28 08:10] LABS: Basophils # (auto) 0 10 ^3/uL (0-0.2); Basophils % (auto) 0.1 % (0.0-2.0); Eosinophils # (auto) 0 10 ^3/uL (0-0.8); Hematocrit 36.2 % (36.0-46.0); Lymphocytes # (auto) 0.3 10 ^3/uL (0.4-5.4); Mean Corpuscular Hemoglobin 28.3 pg (28.0-32.0); Mean Corpuscular Hgb Conc. 30.3 g/dL (32.0-36.0); Mean Corpuscular Volume 93.2 fL (80.0-100.0); Monocytes # (auto) 0.1 10 ^3/uL (0-1.3); Monocytes % (auto) 2.2 % (0.0-12.0); Neutrophils # (auto) 5.7 10 ^3/uL (1.6-8.6); Neutrophils % (auto) 92.7 % (37.0-80.0); Platelet Count (auto) 538 10^3/uL (140-450); Red Blood Cells 3.88 10^6/uL (4.0-5.20); White Blood Cell 6.1 10^3/uL (4.4-10.8)
[2019-10-28 08:12] LABS: Red Cell Distribution Width 20.5 % (11.8-14.3)
[2019-10-28 08:28] LABS: Albumin 2.5 g/dL (3.4-5.0); Calcium 9.1 mg/dL (8.5-10.1)
[2019-10-28 08:33] LABS: Bilirubin, Total 0.3 mg/dL (0.2-1.0)
[2019-10-28] MEDS: FUROSEMIDE 40 MG/4 ML VIAL IV SCH (09:22)
[2019-10-28] MEDS: FAMOTIDINE (10MG/ML) 2ML VL IV SCH (09:22)
[2019-10-28] MEDS: MEROPENEM 500MG IVPB 50 ML IV SCH (09:22)
--- NOTE | 2019-10-28 14:00 | NUR ---
Spoke to Triny VALERO, patient is on home health with [facility]'s home health [phone]. Hospitalist informed/aware.
--- NOTE | 2019-10-28 15:05 | NUR ---
Elevated Blood pressure Paged Dr. Phylicia Martinez for blood pressure of 161/108, HR 119-140's. Orders received. Patient is in no distress/no sob. Will continue to monitor Addendum: 10/28/19 at 1631 by Damaris Dunlap RN 1610 BP REASSESSMENT 156/97
[2019-10-28] MEDS ORDERED: cloNIDine HCL 0.1 MG TAB PO ONE (15:15)
--- NOTE | 2019-10-28 16:31 | NUR ---
BOWEL MOVEMENT Patient had a large soft brown BM, cleansed patient and performed a a complete linen change with JADEN Gordon.
--- NOTE | 2019-10-28 18:05 | NUR ---
Assisted patient with feeding. Patient tolerated diet well.Will continue to monitor.
--- NOTE | 2019-10-28 18:45 | NUR ---
CLOSING NOTE Patient is alert x1, comfortably resting in bed, no s/s of distress/sob noted/stated. Bed is at lowest locked position and call light within reach. Will endorse care to NOC RN.
--- NOTE | 2019-10-28 19:40 | NUR ---
Opening Shift Note Assumed care of patient, awake and alert, oriented to name, follows direction, unclear speech. On oxyen at 2L via NC with even and unlabored respirations. No S/S of distress/SOB or pain. Bed in low locked position with side rails sup x 2 and call light within reach, bed alarm on. Instructed on POC and to call for assist PRN, will continue to monitor for changes Q1hr and PRN.
[2019-10-29] MEDS: ALBUTEROL SULF 2.5 MG/0.5ML(0.5%) NEB SOLN NEB SCH ×3 (00:14→11:45)
[2019-10-29] MEDS: IPRATROPIUM BROM 0.5 MG/2.5ML INH SOL NEB SCH ×3 (00:15→11:45)
[2019-10-29 05:43] VITALS: BP 141/76
[2019-10-29] MEDS: ACCU-CHEK COMFORT CURVE STRIP VI SCH ×2 (06:11→11:27)
[2019-10-29] MEDS: InsuLIN REG 1unit/0.01ml Soln (100units/ml) SC SCH ×2 (06:15→11:30)
[2019-10-29] MEDS: methylPREDNISolone SOD SUCC 40 MG/ML VL IV SCH (06:18)
--- NOTE | 2019-10-29 06:55 | NUR ---
Closing Note status chance. patient resting in bed with oxygen on, even and unlabored respirations, no s/s of distress. SCD's on to bilateral legs. Bed in low locked position with side rails up x 2 and call light within reach. Addendum: 10/29/19 at 0657 by Anusha Freeman RN RN status unchanged.
--- NOTE | 2019-10-29 07:50 | NUR ---
RECEIVED -PATIENT ALERT AND ORIENTED X1, DNR STATUS, NOT IN DISTRESS, WHEEZING LS IN BILATERAL UPPER AND DIMINISHED IN LOWER LUNG LOBES, RR=18, SAT=95%, DEEP BREATHING AND COUGHING ENCOURAGED, NO S/S OF BREATH AND CHEST PAIN, SR R=86 ON TELE MONITOR, ABDOMEN SOFT WITH ACTIVE BS, LAST BM 10/28/19 REPORTED, VILLATORO CATH IN PLACE AND PATENT, DRAINING CLOUDY FELLOW URINE, SKIN INTACT, WARM TO TOUCH, RESTING ON BED, HEAD OF BED ELEVATED, BED ON LOW POSITION, RAILS UP X2, CALL LIGHT ON REACH, WILL CONTINUE MONITORING.
--- NOTE | 2019-10-29 08:00 | NUR ---
BUN AND CREATININE L=83/3.16 REPORTED, HOSPITALIST WAS PAGED TO NOTIFY AND FOLLOW UP, WAITING FOR CALL BACK, WILL CONTINUE MONITORING.
[2019-10-29 08:08] LABS: Albumin 2.3 g/dL (3.4-5.0); Calcium 8.5 mg/dL (8.5-10.1); Potassium 4.6 mmol/L (3.5-5.1)
[2019-10-29 08:11] LABS: BUN/Creatinine Ratio 26.3; Bilirubin, Total 0.2 mg/dL (0.2-1.0); Total Protein 5.8 g/dL (6.4-8.2)
[2019-10-29 09:00] VITALS: BP 127/76
[2019-10-29] MEDS: FUROSEMIDE 40 MG/4 ML VIAL IV SCH (09:43)
[2019-10-29] MEDS: MEROPENEM 500MG IVPB 50 ML IV SCH (09:44)
[2019-10-29] MEDS: FAMOTIDINE (10MG/ML) 2ML VL IV SCH (09:44)
[2019-10-29] MEDS ORDERED: SODIUM BICARBONATE 50ML VIAL 50 ML in SOD CHL 0.45% 1,000 ML IV SCH (10:45)
[2019-10-29 11:21] VITALS: BP 127/76
--- NOTE | 2019-10-29 11:59 | NUR ---
PENDING D/C, DAUGHTER WAS CALLED ON [phone] AND NOTIFIED, PENDING SS CONSULT, SS RILEY WAS PAGED FOR FOLLOW UP AND UPDATES, WILL CONTINUE MONITORING.
[2019-10-29 13:00] VITALS: BP 132/86
--- NOTE | 2019-10-29 13:28 | NUR ---
Assessment Patient is an 89-year-old female who is confused. Prior to admission patient lived home with her daughter Sakshi and functioned with [employer] assistance. Per Sakshi patient will return home to her prior living arrangements post discharge and family will transport patient home. Patient has a wheelchair and hospital bed for home use. Patient PCP is Dr. Nixon. Patient is on service with [facility] per Sakshi. Informed Sakshi she has the right to speak to a social services counselor regarding all care. Informed Sakshi she has a right to participate in all discharge planning. Patient has a POA and advanced directive. Sakshi verbalized understanding and agreed to discharge plan home. Faxed clinical information to [facility]. Per Bharati with [facility] they will resume service within 24-48hrs upon d/c day. Informed AMANDA Oliva. Addendum: 10/29/19 at 1330 by MEIR CODY Amended: Links added.
[2019-10-29 14:20] VITALS: BP 129/76
--- NOTE | 2019-10-29 15:00 | NUR ---
D/C VILLATORO CATH AND MID LINE FROM LT. UPPER ARM, TOLERATED WELL, OUT OF BED TO THE CHAIR WITH PT AND BACK TO THE BED, TOLERATED WELL, SAT 94% IN RA, NOT IN DISTRESS, RESTING ON BED WAITING FOR RIDE TO COME, WILL CONTINUE MONITORING.
[2019-10-29] MEDS ORDERED: PNEUMOCOCCAL VACC POLYS 25 MCG/0.5 ML VIAL IM ONE (15:45)
--- NOTE | 2019-10-29 15:49 | NUR ---
[facility] CONTACTED FOR PNEUMONIA VACCINE, WAITING PHARMACY TO SEND THE VACCINE REPORTED, 1 LARGE DARK BROWN SOFT BM NOTED, VOIDED X2 POST VILLATORO CATH D/C, RESTING ON BED, PENDING D/C, WILL CONTINUE MONITORING.
--- NOTE | 2019-10-29 16:45 | NUR ---
D/C INSTRUCTIONS AND EDUCATION PROVIDED, FOLLOW UP APPOINTMENT WITH PCP ARRANGEMENT INFORMATION PROVIDED, MEDICATION EDUCATION AND PRESCRIPTION PROVIDED, DAUGHTER VERBALIZED UNDERSTANDING, VS T=97.8 RR=20 OWD=972, P=88 YU=147/76, NOT IN DISTRESS, D/C ON WC WITH PT ASSISTANCE FROM BED TO WC AND FROM WC TO THE CAR, TOLERATED WELL, WENT HOME ACCOMPANIED BY DAUGHTER AND SON, TOOK ALL BELONGINGS AND LEFT NOTHING BEHIND.
== END 2019-10-29 16:40 | disposition home health service (06) | DRG 871 ==
LOC: ER 13:38 → EDBD 13:38 → TELE 13:39 → TELE-WESTW 23:22
PROVIDERS: ADMIT Internal Medicine; ATTEND Family Medicine
PROC: 3E0234Z Introduction of Serum, Toxoid and Vaccine into Muscle, Percutaneous Approach (ICD-10-PCS; principal; 2019-10-29)
DX: A41.9 Sepsis, unspecified organism (principal); G93.41 Metabolic encephalopathy; K85.90 Acute pancreatitis without necrosis or infection, unspecified; N17.0 Acute kidney failure with tubular necrosis; N18.6 End stage renal disease; J90 Pleural effusion, not elsewhere classified; J98.11 Atelectasis; D68.59 Other primary thrombophilia; M48.56XA Collapsed vertebra, not elsewhere classified, lumbar region, initial encounter for fracture; K80.10 Calculus of gallbladder with chronic cholecystitis without obstruction; I50.22 Chronic systolic (congestive) heart failure; N39.0 Urinary tract infection, site not specified; I13.2 Hypertensive heart and chronic kidney disease with heart failure and with stage 5 chronic kidney disease, or end stage renal disease; E11.65 Type 2 diabetes mellitus with hyperglycemia; E86.0 Dehydration; E11.40 Type 2 diabetes mellitus with diabetic neuropathy, unspecified; E11.22 Type 2 diabetes mellitus with diabetic chronic kidney disease; E78.00 Pure hypercholesterolemia, unspecified; E78.5 Hyperlipidemia, unspecified; I48.91 Unspecified atrial fibrillation; D63.1 Anemia in chronic kidney disease; I25.10 Atherosclerotic heart disease of native coronary artery without angina pectoris; J44.9 Chronic obstructive pulmonary disease, unspecified; F41.9 Anxiety disorder, unspecified; E03.9 Hypothyroidism, unspecified; Z66 Do not resuscitate; Z80.1 Family history of malignant neoplasm of trachea, bronchus and lung; Z80.41 Family history of malignant neoplasm of ovary; Z80.3 Family history of malignant neoplasm of breast; Z80.8 Family history of malignant neoplasm of other organs or systems; Z80.0 Family history of malignant neoplasm of digestive organs; Z81.8 Family history of other mental and behavioral disorders; Z82.0 Family history of epilepsy and other diseases of the nervous system; Z82.49 Family history of ischemic heart disease and other diseases of the circulatory system; Z82.5 Family history of asthma and other chronic lower respiratory diseases; Z83.3 Family history of diabetes mellitus; Z87.440 Personal history of urinary (tract) infections; Z82.62 Family history of osteoporosis; Z82.3 Family history of stroke; Z95.1 Presence of aortocoronary bypass graft; Z23 Encounter for immunization
CPT/HCPCS: 36415; 36600; 70450; 71045; 74176; 76700; 76775; 80053; 81001; 82140; 82150; 82378; 82570; 82805; 82962; 83036; 83605; 83690; 83735; 83880; 84156; 84300; 84484; 85025; 87040; 87081; 87086; 93005; 94640; G0378; J0696; J0885; J1815; J2185; J3490

== ENCOUNTER 2019-10-31 20:02 | Inpatient (IN) | payer MEDICARE, OTHER ==
[~2019-10-31] VITALS: Ht 154.9 cm; Wt 57.8 kg
[2019-10-31] MEDS ORDERED: SODIUM CHLORIDE 0.9% 1,000 ML IV ONE (20:19)
[2019-10-31] MEDS ORDERED: VANCOMYCIN PER PHARMACY 1,000 MG IV SCH (20:30)
[2019-10-31] MEDS ORDERED: dilTIAZem 25 MG/5 ML VIAL IV ONE (20:45)
[2019-10-31] MEDS ORDERED: dilTIAZem 120MG ER CAP PO ONE (20:45)
[2019-10-31 20:55] LABS: Basophils # (auto) 0.1 10 ^3/uL (0-0.2); Eosinophils # (auto) 0.4 10 ^3/uL (0-0.8)
[2019-10-31 20:57] LABS: Basophils % (auto) 0.9 % (0.0-2.0); Eosinophils % (auto) 2.7 % (0.0-7.0); Hemoglobin 11.3 g/dL (12.2-16.2); Lymphocytes # (auto) 0.9 10 ^3/uL (0.4-5.4); Lymphocytes % (auto) 6.4 % (10.0-50.0); Mean Corpuscular Hemoglobin 28.9 pg (28.0-32.0); Mean Corpuscular Hgb Conc. 32.2 g/dL (32.0-36.0); Mean Corpuscular Volume 89.8 fL (80.0-100.0); Monocytes % (auto) 6.8 % (0.0-12.0); Neutrophils # (auto) 12.4 10 ^3/uL (1.6-8.6); Neutrophils % (auto) 83.2 % (37.0-80.0); Nucleated Red Blood Cells % 0.3 %; Platelet Count (auto) 592 10^3/uL (140-450); Red Blood Cells 3.89 10^6/uL (4.0-5.20); White Blood Cell 14.8 10^3/uL (4.4-10.8)
[2019-10-31] MEDS ORDERED: VANCOMYCIN 1GM/250ML 250 ML IV ONE (21:00)
[2019-10-31 21:12] LABS: Albumin 2.9 g/dL (3.4-5.0); Calcium 9.5 mg/dL (8.5-10.1); Potassium 4.3 mmol/L (3.5-5.1)
[2019-10-31 21:17] LABS: BUN/Creatinine Ratio 26.6; Bilirubin, Total 0.6 mg/dL (0.2-1.0); Total Protein 7.2 g/dL (6.4-8.2)
[2019-10-31 21:53] LABS: Urine Bacteria FEW /hpf (None Seen); Urine Blood TRACE /uL (Negative); Urine WBC 140 /hpf (0 - 5); Urine WBC Clumps PRESENT /hpf (None Seen)
[2019-10-31 22:19] LABS: INR 1.6 (0.9-1.15); Partial Thromboplastin Time 27.6 sec (23.0-31.2)
[2019-10-31] MEDS ORDERED: MORPHINE SULF INJ 2 MG/ML SYRINGE 1ML IV PRN (23:45)
[2019-10-31] MEDS ORDERED: FUROSEMIDE 40 MG/4 ML VIAL IV ONE (23:45)
[2019-10-31] MEDS ORDERED: NITROGLYCERIN 0.4 MG SL TAB SL PRN (23:45)
[2019-10-31] MEDS ORDERED: DEXTROSE (50%) 50ML SYRG IV PRN (23:45)
[2019-10-31] MEDS ORDERED: ACETAMINOPHEN 325 MG TAB PO PRN (23:45)
[2019-10-31] MEDS ORDERED: ONDANSETRON HCL 4 MG/2 ML VIAL IV PRN (23:45)
[2019-11-01] MEDS: PIPERACILLIN-TAZOB 2.25GM 50 ML IV SCH ×2 (00:09→06:35)
[2019-11-01 05:14] VITALS: BP 131/83
[2019-11-01 05:52] LABS: Basophils # (auto) 0 10 ^3/uL (0-0.2); Basophils % (auto) 0.1 % (0.0-2.0); Eosinophils # (auto) 0.2 10 ^3/uL (0-0.8); Lymphocytes # (auto) 0.7 10 ^3/uL (0.4-5.4); Platelet Count (auto) 461 10^3/uL (140-450)
[2019-11-01 05:55] LABS: Eosinophils % (auto) 1.7 % (0.0-7.0); Hematocrit 30.6 % (36.0-46.0); Hemoglobin 9.7 g/dL (12.2-16.2); Lymphocytes % (auto) 5.9 % (10.0-50.0); Mean Corpuscular Hemoglobin 28.7 pg (28.0-32.0); Mean Corpuscular Hgb Conc. 31.6 g/dL (32.0-36.0); Monocytes # (auto) 0.5 10 ^3/uL (0-1.3); Monocytes % (auto) 4.4 % (0.0-12.0); Neutrophils % (auto) 87.9 % (37.0-80.0); Nucleated Red Blood Cells % 0.2 %; Red Blood Cells 3.36 10^6/uL (4.0-5.20); Red Cell Distribution Width 19.6 % (11.8-14.3); White Blood Cell 11.4 10^3/uL (4.4-10.8)
[2019-11-01] MEDS: ACCU-CHEK COMFORT CURVE STRIP VI SCH ×4 (05:59→21:41)
[2019-11-01 06:12] LABS: BUN/Creatinine Ratio 26.1; Calcium 8.8 mg/dL (8.5-10.1); Potassium 4.5 mmol/L (3.5-5.1)
[2019-11-01] MEDS: FUROSEMIDE 40 MG/4 ML VIAL IV SCH ×2 (06:35→17:48)
[2019-11-01] MEDS: InsuLIN REG 1unit/0.01ml Soln (100units/ml) SC SCH ×4 (06:43→21:47)
[2019-11-01 08:00] VITALS: BP 155/88
[2019-11-01 09:00] VITALS: BP 155/88
[2019-11-01] MEDS: cefTRIAXone 1GM/50ML D5W 50 ML IV SCH (09:08)
[2019-11-01] MEDS: ASPirin 81 mg TAB PO SCH (09:18)
[2019-11-01] MEDS: CARVEDILOL 12.5 MG TAB PO SCH ×2 (09:18→21:40)
[2019-11-01] MEDS: PANTOPRAZOLE 40 MG TAB PO SCH (09:19)
[2019-11-01] MEDS: CLOPIDOGREL BISULFATE 75 MG TAB PO SCH (09:19)
[2019-11-01] MEDS: NIFEdipine ER 30 MG TAB PO SCH (09:19)
[2019-11-01 13:00] VITALS: BP 135/74
[2019-11-01] MEDS ORDERED: ENOXAPARIN SOD 60 MG/0.6 ML SYRINGE SC SCH (13:00)
[2019-11-01] MEDS ORDERED: VANCOMYCIN 500 MG in D5W 5% 100 ML IV ONE (16:00)
[2019-11-01 17:00] VITALS: BP 121/79
[2019-11-01] MEDS: ATORVASTATIN 20 MG TAB PO SCH (21:41)
[2019-11-01 22:00] VITALS: BP 129/71
[2019-11-01] MEDS ORDERED: HALOPERIDOL LACTATE 5 MG/ML INJ VIAL IM PRN (23:45)
[2019-11-02 05:00] VITALS: BP 126/64
[2019-11-02] MEDS: FUROSEMIDE 40 MG/4 ML VIAL IV SCH (05:45)
[2019-11-02] MEDS: ACCU-CHEK COMFORT CURVE STRIP VI SCH ×4 (06:12→21:42)
[2019-11-02] MEDS: InsuLIN REG 1unit/0.01ml Soln (100units/ml) SC SCH ×4 (06:24→21:42)
[2019-11-02 08:00] VITALS: BP 115/85
[2019-11-02] MEDS ORDERED: ZOLPIDEM TARTRATE 5 MG TAB PO PRN (08:30)
[2019-11-02 08:31] LABS: Basophils # (auto) 0.1 10 ^3/uL (0-0.2); Basophils % (auto) 0.7 % (0.0-2.0); Eosinophils # (auto) 0.6 10 ^3/uL (0-0.8); Eosinophils % (auto) 5.7 % (0.0-7.0); Hematocrit 30.9 % (36.0-46.0); Hemoglobin 9.8 g/dL (12.2-16.2); Lymphocytes # (auto) 0.9 10 ^3/uL (0.4-5.4); Lymphocytes % (auto) 8.5 % (10.0-50.0); Mean Corpuscular Hemoglobin 28.9 pg (28.0-32.0); Mean Corpuscular Hgb Conc. 31.8 g/dL (32.0-36.0); Mean Corpuscular Volume 90.9 fL (80.0-100.0); Monocytes # (auto) 0.6 10 ^3/uL (0-1.3); Monocytes % (auto) 5.7 % (0.0-12.0); Neutrophils # (auto) 8.7 10 ^3/uL (1.6-8.6); Neutrophils % (auto) 79.4 % (37.0-80.0); Nucleated Red Blood Cells % 0.2 %; Platelet Count (auto) 423 10^3/uL (140-450); Red Cell Distribution Width 19.7 % (11.8-14.3); White Blood Cell 10.9 10^3/uL (4.4-10.8)
[2019-11-02 08:43] LABS: BUN/Creatinine Ratio 26.4; Calcium 8.8 mg/dL (8.5-10.1); Potassium 4.1 mmol/L (3.5-5.1)
[2019-11-02] MEDS: cefTRIAXone 1GM/50ML D5W 50 ML IV SCH (08:58)
[2019-11-02 09:00] VITALS: BP 115/85
[2019-11-02] MEDS: ENOXAPARIN SOD 60 MG/0.6 ML SYRINGE SC SCH (10:10)
[2019-11-02] MEDS: CLOPIDOGREL BISULFATE 75 MG TAB PO SCH (10:11)
[2019-11-02] MEDS: ASPirin 81 mg TAB PO SCH (10:11)
[2019-11-02] MEDS: CARVEDILOL 12.5 MG TAB PO SCH ×2 (10:11→21:41)
[2019-11-02] MEDS: NIFEdipine ER 30 MG TAB PO SCH (10:12)
[2019-11-02] MEDS: PANTOPRAZOLE 40 MG TAB PO SCH (10:12)
[2019-11-02 13:00] VITALS: BP 120/62
[2019-11-02] MEDS ORDERED: VANCOMYCIN 750mg/250ml 250 ML IV ONE (16:00)
[2019-11-02 17:00] VITALS: BP 113/72
[2019-11-02] MEDS: ATORVASTATIN 20 MG TAB PO SCH (21:41)
[2019-11-02 22:00] VITALS: BP 156/89
[2019-11-03 05:00] VITALS: BP 141/104
[2019-11-03 06:02] LABS: Basophils # (auto) 0 10 ^3/uL (0-0.2); Basophils % (auto) 0.4 % (0.0-2.0); Eosinophils # (auto) 0.5 10 ^3/uL (0-0.8); Eosinophils % (auto) 4.9 % (0.0-7.0); Hemoglobin 9.1 g/dL (12.2-16.2); Lymphocytes # (auto) 1.2 10 ^3/uL (0.4-5.4); Lymphocytes % (auto) 10.9 % (10.0-50.0); Mean Corpuscular Hemoglobin 29.3 pg (28.0-32.0); Mean Corpuscular Hgb Conc. 32.5 g/dL (32.0-36.0); Mean Corpuscular Volume 90.1 fL (80.0-100.0); Monocytes # (auto) 0.8 10 ^3/uL (0-1.3); Monocytes % (auto) 7.1 % (0.0-12.0); Neutrophils # (auto) 8.4 10 ^3/uL (1.6-8.6); Neutrophils % (auto) 76.7 % (37.0-80.0); Nucleated Red Blood Cells % 0.7 %; Platelet Count (auto) 337 10^3/uL (140-450); Red Blood Cells 3.11 10^6/uL (4.0-5.20); Red Cell Distribution Width 19.9 % (11.8-14.3); White Blood Cell 10.9 10^3/uL (4.4-10.8)
[2019-11-03] MEDS: InsuLIN REG 1unit/0.01ml Soln (100units/ml) SC SCH ×4 (07:00→21:55)
[2019-11-03 08:00] VITALS: BP 133/76
[2019-11-03] MEDS: ACCU-CHEK COMFORT CURVE STRIP VI SCH ×4 (08:00→21:55)
[2019-11-03 09:00] VITALS: BP 133/76
[2019-11-03] MEDS: cefTRIAXone 1GM/50ML D5W 50 ML IV SCH (09:09)
[2019-11-03] MEDS: CARVEDILOL 12.5 MG TAB PO SCH ×2 (09:42→21:56)
[2019-11-03] MEDS: ASPirin 81 mg TAB PO SCH (09:42)
[2019-11-03] MEDS: PANTOPRAZOLE 40 MG TAB PO SCH (09:43)
[2019-11-03] MEDS: NIFEdipine ER 30 MG TAB PO SCH (09:43)
[2019-11-03] MEDS: CLOPIDOGREL BISULFATE 75 MG TAB PO SCH (09:43)
[2019-11-03] MEDS: ENOXAPARIN SOD 60 MG/0.6 ML SYRINGE SC SCH (09:43)
[2019-11-03 13:00] VITALS: BP 110/63
[2019-11-03 16:32] VITALS: BP 115/69
[2019-11-03] MEDS: ATORVASTATIN 20 MG TAB PO SCH (21:56)
[2019-11-03 22:00] VITALS: BP 118/67
[2019-11-04 04:45] VITALS: BP 116/72
[2019-11-04] MEDS: InsuLIN REG 1unit/0.01ml Soln (100units/ml) SC SCH ×4 (06:31→22:04)
[2019-11-04] MEDS: ACCU-CHEK COMFORT CURVE STRIP VI SCH ×4 (06:36→21:57)
[2019-11-04] MEDS: cefTRIAXone 1GM/50ML D5W 50 ML IV SCH (08:52)
[2019-11-04 09:00] VITALS: BP 123/72
[2019-11-04] MEDS: ASPirin 81 mg TAB PO SCH (09:12)
[2019-11-04] MEDS: NIFEdipine ER 30 MG TAB PO SCH (09:13)
[2019-11-04] MEDS: CLOPIDOGREL BISULFATE 75 MG TAB PO SCH (09:13)
[2019-11-04] MEDS: ENOXAPARIN SOD 60 MG/0.6 ML SYRINGE SC SCH (09:13)
[2019-11-04] MEDS: CARVEDILOL 12.5 MG TAB PO SCH ×2 (09:13→21:56)
[2019-11-04] MEDS: PANTOPRAZOLE 40 MG TAB PO SCH (09:13)
[2019-11-04 09:28] LABS: Hematocrit 25.8 % (36.0-46.0); Hemoglobin 8.2 g/dL (12.2-16.2); Mean Corpuscular Hemoglobin 28.6 pg (28.0-32.0); Mean Corpuscular Hgb Conc. 31.6 g/dL (32.0-36.0); Mean Corpuscular Volume 90.4 fL (80.0-100.0); Platelet Count (auto) 336 10^3/uL (140-450); Red Blood Cells 2.86 10^6/uL (4.0-5.20); White Blood Cell 12.6 10^3/uL (4.4-10.8)
[2019-11-04 09:30] LABS: Red Cell Distribution Width 20.1 % (11.8-14.3)
[2019-11-04 09:33] LABS: Basophils % (manual) 0 (0.0-2.0); Blast Cells 0; Metamyelocytes % 0; Promyelocytes % 0; Reactive Lymphocytes 0
[2019-11-04 09:49] LABS: Band Neutrophils % (manual) 2; Eosinophils % (manual) 1 (0-7); Lymphocytes % (manual) 7 (10.0-50.0); Monocytes % (manual) 2 (0-12); Myelocytes % 1
[2019-11-04 09:53] LABS: BUN/Creatinine Ratio 28.9; Calcium 8.2 mg/dL (8.5-10.1); Potassium 4.7 mmol/L (3.5-5.1)
[2019-11-04] MEDS: CEFEPIME 1 GM in SODIUM CHL 0.9% 50 ML IV SCH (11:00)
[2019-11-04 13:30] VITALS: BP 127/77
[2019-11-04 17:00] VITALS: BP 132/73
[2019-11-04] MEDS: SOD CHL 0.45% 1,000 ML IV SCH (18:10)
[2019-11-04] MEDS: APIXABAN 5 MG TAB PO SCH (21:57)
[2019-11-04] MEDS: ATORVASTATIN 20 MG TAB PO SCH (21:57)
[2019-11-04 22:00] VITALS: BP 139/95
[2019-11-04] MEDS ORDERED: PATIENTS OWN MEDICATION (eliquis 5 MG) PO SCH (22:00)
[2019-11-05] MEDS: SOD CHL 0.45% 1,000 ML IV SCH ×2 (03:15→14:15)
[2019-11-05 05:00] VITALS: BP 120/75
[2019-11-05 06:18] LABS: Potassium 4.7 mmol/L (3.5-5.1)
[2019-11-05] MEDS: ACCU-CHEK COMFORT CURVE STRIP VI SCH ×4 (06:22→22:10)
[2019-11-05] MEDS: InsuLIN REG 1unit/0.01ml Soln (100units/ml) SC SCH ×4 (06:23→22:00)
[2019-11-05 06:30] LABS: BUN/Creatinine Ratio 29.7; Calcium 8.4 mg/dL (8.5-10.1)
[2019-11-05 09:00] VITALS: BP_SYST 125; BP_SYST 146; BP_DIAS 101; BP_DIAS 95
[2019-11-05] MEDS: PANTOPRAZOLE 40 MG TAB PO SCH (09:23)
[2019-11-05] MEDS: APIXABAN 5 MG TAB PO SCH ×2 (09:23→22:05)
[2019-11-05] MEDS: ASPirin 81 mg TAB PO SCH (09:23)
[2019-11-05] MEDS: CLOPIDOGREL BISULFATE 75 MG TAB PO SCH (09:24)
[2019-11-05] MEDS: CARVEDILOL 12.5 MG TAB PO SCH ×2 (09:24→22:05)
[2019-11-05] MEDS: NIFEdipine ER 30 MG TAB PO SCH (09:24)
[2019-11-05] MEDS: CEFEPIME 1 GM in SODIUM CHL 0.9% 50 ML IV SCH (11:01)
[2019-11-05] MEDS: DOBUTamine 1000MCG/ML 250 ML IV SCH (12:15)
[2019-11-05 13:00] VITALS: BP 115/65
[2019-11-05] MEDS ORDERED: SODIUM CHLORIDE 0.9% 1,000 ML IV ONE (18:00)
[2019-11-05 22:00] VITALS: BP 134/80
[2019-11-05] MEDS ORDERED: ALBUTEROL SULF 2.5 MG/0.5ML(0.5%) NEB SOLN NEB PRN (22:00)
[2019-11-05] MEDS: ATORVASTATIN 20 MG TAB PO SCH (22:05)
[2019-11-05 23:46] VITALS: BP 134/80
[2019-11-06] MEDS: DOBUTamine 1000MCG/ML 250 ML IV SCH ×2 (00:07→13:27)
[2019-11-06] MEDS: SOD CHL 0.45% 1,000 ML IV SCH ×2 (00:15→10:15)
[2019-11-06 05:00] VITALS: BP 150/71
[2019-11-06] MEDS: InsuLIN REG 1unit/0.01ml Soln (100units/ml) SC SCH ×4 (05:52→22:15)
[2019-11-06] MEDS: ACCU-CHEK COMFORT CURVE STRIP VI SCH ×4 (05:52→22:15)
[2019-11-06 09:00] VITALS: BP 127/58
[2019-11-06] MEDS ORDERED: FUROSEMIDE 20 MG/2 ML VIAL IV ONE ×2 (09:45→12:30)
[2019-11-06] MEDS: PANTOPRAZOLE 40 MG TAB PO SCH (09:51)
[2019-11-06] MEDS: ASPirin 81 mg TAB PO SCH (09:51)
[2019-11-06] MEDS: CLOPIDOGREL BISULFATE 75 MG TAB PO SCH (09:52)
[2019-11-06] MEDS: NIFEdipine ER 30 MG TAB PO SCH (09:52)
[2019-11-06] MEDS: APIXABAN 5 MG TAB PO SCH ×2 (09:52→22:15)
[2019-11-06] MEDS: CARVEDILOL 12.5 MG TAB PO SCH ×2 (09:52→22:00)
[2019-11-06 10:49] LABS: Basophils # (auto) 0.1 10 ^3/uL (0-0.2); Eosinophils # (auto) 0.3 10 ^3/uL (0-0.8); Hemoglobin 7.5 g/dL (12.2-16.2); Monocytes # (auto) 0.8 10 ^3/uL (0-1.3)
[2019-11-06 10:51] LABS: Basophils % (auto) 0.7 % (0.0-2.0); Hematocrit 23.8 % (36.0-46.0); Lymphocytes # (auto) 0.4 10 ^3/uL (0.4-5.4); Mean Corpuscular Hemoglobin 28.4 pg (28.0-32.0); Mean Corpuscular Hgb Conc. 31.5 g/dL (32.0-36.0); Mean Corpuscular Volume 89.9 fL (80.0-100.0); Monocytes % (auto) 7.2 % (0.0-12.0); Neutrophils # (auto) 9.4 10 ^3/uL (1.6-8.6); Neutrophils % (auto) 85.1 % (37.0-80.0); Platelet Count (auto) 371 10^3/uL (140-450); Red Blood Cells 2.65 10^6/uL (4.0-5.20)
[2019-11-06 10:55] LABS: Red Cell Distribution Width 20.2 % (11.8-14.3)
[2019-11-06 11:07] LABS: Albumin 2.3 g/dL (3.4-5.0); Calcium 8.3 mg/dL (8.5-10.1); Potassium 4.3 mmol/L (3.5-5.1)
[2019-11-06] MEDS: CEFEPIME 1 GM in SODIUM CHL 0.9% 50 ML IV SCH (11:10)
[2019-11-06 11:12] LABS: BUN/Creatinine Ratio 27.9; Bilirubin, Total 0.3 mg/dL (0.2-1.0)
[2019-11-06 13:00] VITALS: BP 111/59
[2019-11-06] MEDS: ALBUTEROL SULF 2.5 MG/0.5ML(0.5%) NEB SOLN NEB SCH ×4 (14:14→22:43)
[2019-11-06] MEDS: IPRATROPIUM BROM 0.5 MG/2.5ML INH SOL NEB SCH ×4 (14:15→22:43)
[2019-11-06 22:00] VITALS: BP 124/66
[2019-11-06] MEDS: ATORVASTATIN 20 MG TAB PO SCH (22:15)
[2019-11-07] MEDS: IPRATROPIUM BROM 0.5 MG/2.5ML INH SOL NEB SCH ×7 (01:57→22:20)
[2019-11-07] MEDS: ALBUTEROL SULF 2.5 MG/0.5ML(0.5%) NEB SOLN NEB SCH ×7 (01:57→22:20)
[2019-11-07] MEDS: DOBUTamine 1000MCG/ML 250 ML IV SCH ×2 (03:36→17:29)
[2019-11-07 05:00] VITALS: BP 127/68
[2019-11-07] MEDS: InsuLIN REG 1unit/0.01ml Soln (100units/ml) SC SCH ×4 (07:00→21:35)
[2019-11-07] MEDS: ACCU-CHEK COMFORT CURVE STRIP VI SCH ×4 (07:11→21:43)
[2019-11-07 09:00] VITALS: BP 143/72
[2019-11-07] MEDS: ASPirin 81 mg TAB PO SCH (09:45)
[2019-11-07] MEDS: CARVEDILOL 12.5 MG TAB PO SCH ×2 (09:46→22:08)
[2019-11-07] MEDS: APIXABAN 5 MG TAB PO SCH ×2 (09:46→22:00)
[2019-11-07] MEDS: CLOPIDOGREL BISULFATE 75 MG TAB PO SCH (09:46)
[2019-11-07] MEDS: NIFEdipine ER 30 MG TAB PO SCH (09:46)
[2019-11-07] MEDS: PANTOPRAZOLE 40 MG TAB PO SCH (09:47)
[2019-11-07] MEDS: CEFEPIME 1 GM in SODIUM CHL 0.9% 50 ML IV SCH (09:48)
[2019-11-07 11:47] LABS: Potassium 4.1 mmol/L (3.5-5.1); Sodium 139 mmol/L (136-145)
[2019-11-07 11:48] LABS: Anion Gap 11 (5-15); Carbon Dioxide 19 mmol/L (21-32); Chloride 109 mmol/L (98-107); Glucose 125 mg/dL (74-106)
[2019-11-07 11:49] LABS: BUN/Creatinine Ratio 29.9; Calcium 8.5 mg/dL (8.5-10.1); GFR African American 17 mL/min; GFR Non-African American 14 mL/min
[2019-11-07 12:11] LABS: Blood Urea Nitrogen 97 mg/dL (7-18)
[2019-11-07 13:00] VITALS: BP 119/65
[2019-11-07 17:00] VITALS: BP 120/65
[2019-11-07] MEDS: FUROSEMIDE 20 MG/2 ML VIAL IV SCH (17:31)
[2019-11-07 19:20] VITALS: BP 120/65
[2019-11-07 22:00] VITALS: BP 107/62
[2019-11-07] MEDS: ATORVASTATIN 20 MG TAB PO SCH (22:08)
[2019-11-08] MEDS: ALBUTEROL SULF 2.5 MG/0.5ML(0.5%) NEB SOLN NEB SCH ×5 (02:42→22:29)
[2019-11-08] MEDS: IPRATROPIUM BROM 0.5 MG/2.5ML INH SOL NEB SCH ×5 (02:42→22:29)
[2019-11-08 05:00] VITALS: BP 133/67
[2019-11-08 05:20] VITALS: BP 132/70
[2019-11-08] MEDS: FUROSEMIDE 20 MG/2 ML VIAL IV SCH ×2 (06:36→18:24)
[2019-11-08] MEDS: InsuLIN REG 1unit/0.01ml Soln (100units/ml) SC SCH ×4 (06:37→21:48)
[2019-11-08] MEDS: ACCU-CHEK COMFORT CURVE STRIP VI SCH ×4 (06:37→21:48)
[2019-11-08 09:06] VITALS: BP 111/68
[2019-11-08] MEDS: DOBUTamine 1000MCG/ML 250 ML IV SCH (09:28)
[2019-11-08] MEDS ORDERED: MAGNESIUM SULFATE 1GM/100ML 100 ML IV ONE (09:45)
[2019-11-08] MEDS: APIXABAN 5 MG TAB PO SCH ×3 (09:52→21:47)
[2019-11-08] MEDS: CLOPIDOGREL BISULFATE 75 MG TAB PO SCH ×2 (09:52→10:00)
[2019-11-08] MEDS: PANTOPRAZOLE 40 MG TAB PO SCH ×2 (09:53→10:00)
[2019-11-08] MEDS: ASPirin 81 mg TAB PO SCH ×2 (09:53→10:00)
[2019-11-08] MEDS: CARVEDILOL 12.5 MG TAB PO SCH ×2 (09:53→11:45)
[2019-11-08] MEDS: NIFEdipine ER 30 MG TAB PO SCH ×2 (09:54→10:00)
[2019-11-08] MEDS: CEFEPIME 1 GM in SODIUM CHL 0.9% 50 ML IV SCH (11:22)
[2019-11-08 13:00] VITALS: BP 136/69
[2019-11-08 16:42] VITALS: BP 125/76
[2019-11-08] MEDS: ATORVASTATIN 20 MG TAB PO SCH (21:51)
[2019-11-09] VITALS (11 sets, daily range): BP systolic 114–157; BP diastolic 58–81
[2019-11-09] MEDS: DOBUTamine 1000MCG/ML 250 ML IV SCH ×2 (00:41→09:14)
[2019-11-09] MEDS: ALBUTEROL SULF 2.5 MG/0.5ML(0.5%) NEB SOLN NEB SCH ×6 (02:25→22:00)
[2019-11-09] MEDS: IPRATROPIUM BROM 0.5 MG/2.5ML INH SOL NEB SCH ×6 (02:25→22:00)
[2019-11-09] MEDS: FUROSEMIDE 20 MG/2 ML VIAL IV SCH ×2 (06:07→18:13)
[2019-11-09] MEDS: InsuLIN REG 1unit/0.01ml Soln (100units/ml) SC SCH ×4 (06:31→21:47)
[2019-11-09] MEDS: ACCU-CHEK COMFORT CURVE STRIP VI SCH ×4 (06:32→21:47)
[2019-11-09] MEDS ORDERED: ALBUTEROL SULF 2.5 MG/0.5ML(0.5%) NEB SOLN ONE (06:41)
[2019-11-09] MEDS ORDERED: IPRATROPIUM BROM 0.5 MG/2.5ML INH SOL ONE (06:41)
[2019-11-09] MEDS ORDERED: DIGOXIN (250MCG/ML) 2 ML AMPULE IV ONE (07:45)
[2019-11-09] MEDS ORDERED: dilTIAZem 25 MG/5 ML VIAL IV ONE (09:15)
[2019-11-09] MEDS: CLOPIDOGREL BISULFATE 75 MG TAB PO SCH ×2 (09:36→10:00)
[2019-11-09] MEDS: APIXABAN 5 MG TAB PO SCH ×2 (09:36→10:00)
[2019-11-09] MEDS: CARVEDILOL 12.5 MG TAB PO SCH ×3 (09:36→21:46)
[2019-11-09] MEDS: NIFEdipine ER 30 MG TAB PO SCH (10:00)
[2019-11-09] MEDS: PANTOPRAZOLE 40 MG TAB PO SCH (10:00)
[2019-11-09] MEDS: ASPirin 81 mg TAB PO SCH (10:00)
[2019-11-09] MEDS: CEFEPIME 1 GM in SODIUM CHL 0.9% 50 ML IV SCH (10:55)
[2019-11-09] MEDS ORDERED: AMIODARONE 450mg/250ml AE 250 ML IV SCH (12:11)
[2019-11-09] MEDS ORDERED: AMIODARONE HCL 150 MG in D5W 5% 100 ML IV ONE (12:15)
[2019-11-09] MEDS ORDERED: ENOXAPARIN SOD 60 MG/0.6 ML SYRINGE SC ONE (14:15)
[2019-11-09] MEDS: AMIODARONE 450mg/250ml AE 250 ML IV SCH (17:22)
[2019-11-09 17:36] LABS: Hematocrit 15.7 % (36.0-46.0)
[2019-11-09 17:38] LABS: Hemoglobin 5.2 g/dL (12.2-16.2)
[2019-11-09 17:52] LABS: Albumin 2.2 g/dL (3.4-5.0); BUN/Creatinine Ratio 28.6; Calcium 8.4 mg/dL (8.5-10.1); Magnesium 1.7 mg/dL (1.6-2.6); Potassium 4.2 mmol/L (3.5-5.1)
[2019-11-09 17:54] LABS: Bilirubin, Total 0.3 mg/dL (0.2-1.0); Total Protein 5.3 g/dL (6.4-8.2)
[2019-11-09] MEDS: ATORVASTATIN 20 MG TAB PO SCH (21:47)
[2019-11-10] VITALS (17 sets, daily range): BP systolic 135–160; BP diastolic 74–105
[2019-11-10] MEDS: ALBUTEROL SULF 2.5 MG/0.5ML(0.5%) NEB SOLN NEB SCH ×6 (02:00→22:48)
[2019-11-10] MEDS: IPRATROPIUM BROM 0.5 MG/2.5ML INH SOL NEB SCH ×6 (02:00→22:48)
[2019-11-10] MEDS: InsuLIN REG 1unit/0.01ml Soln (100units/ml) SC SCH ×4 (06:56→22:35)
[2019-11-10] MEDS: ACCU-CHEK COMFORT CURVE STRIP VI SCH ×4 (06:56→22:34)
[2019-11-10] MEDS: FUROSEMIDE 20 MG/2 ML VIAL IV SCH ×2 (07:05→17:39)
[2019-11-10] MEDS: DOBUTamine 1000MCG/ML 250 ML IV SCH (07:17)
[2019-11-10] MEDS: ENOXAPARIN SOD 60 MG/0.6 ML SYRINGE SC SCH (07:18)
[2019-11-10] MEDS: PANTOPRAZOLE 40 MG TAB PO SCH (09:20)
[2019-11-10] MEDS: CLOPIDOGREL BISULFATE 75 MG TAB PO SCH (09:20)
[2019-11-10] MEDS: NIFEdipine ER 30 MG TAB PO SCH (09:20)
[2019-11-10] MEDS: CARVEDILOL 12.5 MG TAB PO SCH ×2 (09:20→22:30)
[2019-11-10] MEDS: ASPirin 81 mg TAB PO SCH (09:20)
[2019-11-10] MEDS ORDERED: MAGNESIUM SULFATE 1GM/100ML 100 ML IV ONE (10:00)
[2019-11-10 10:44] LABS: Basophils # (auto) 0.1 10 ^3/uL (0-0.2); Basophils % (auto) 0.9 % (0.0-2.0); Eosinophils # (auto) 0.2 10 ^3/uL (0-0.8); Eosinophils % (auto) 1.2 % (0.0-7.0); Hematocrit 31.2 % (36.0-46.0); Hemoglobin 10.2 g/dL (12.2-16.2); Lymphocytes # (auto) 0.8 10 ^3/uL (0.4-5.4); Lymphocytes % (auto) 5.6 % (10.0-50.0); Mean Corpuscular Hemoglobin 31.3 pg (28.0-32.0); Mean Corpuscular Hgb Conc. 32.8 g/dL (32.0-36.0); Mean Corpuscular Volume 95.4 fL (80.0-100.0); Monocytes # (auto) 0.9 10 ^3/uL (0-1.3); Monocytes % (auto) 6.5 % (0.0-12.0); Neutrophils # (auto) 11.5 10 ^3/uL (1.6-8.6); Neutrophils % (auto) 85.8 % (37.0-80.0); Nucleated Red Blood Cells % 0.4 %; Platelet Count (auto) 300 10^3/uL (140-450); Red Blood Cells 3.27 10^6/uL (4.0-5.20); Red Cell Distribution Width 18.4 % (11.8-14.3); White Blood Cell 13.4 10^3/uL (4.4-10.8)
[2019-11-10 11:05] LABS: Potassium 4.3 mmol/L (3.5-5.1)
[2019-11-10 11:07] LABS: BUN/Creatinine Ratio 29.3
[2019-11-10] MEDS: CEFEPIME 1 GM in SODIUM CHL 0.9% 50 ML IV SCH (12:35)
[2019-11-10] MEDS: AMIODARONE 450mg/250ml AE 250 ML IV SCH (13:06)
[2019-11-10] MEDS: dilTIAZem 25 MG/5 ML VIAL IV PRN (17:21)
[2019-11-10] MEDS: ATORVASTATIN 20 MG TAB PO SCH (22:30)
[2019-11-11] MEDS: ALBUTEROL SULF 2.5 MG/0.5ML(0.5%) NEB SOLN NEB SCH ×7 (02:00→22:00)
[2019-11-11] MEDS: IPRATROPIUM BROM 0.5 MG/2.5ML INH SOL NEB SCH ×7 (02:41→22:59)
[2019-11-11] MEDS: AMIODARONE 450mg/250ml AE 250 ML IV SCH ×3 (04:01→20:16)
[2019-11-11 05:00] VITALS: BP 138/77
[2019-11-11] MEDS: ACCU-CHEK COMFORT CURVE STRIP VI SCH ×3 (05:59→17:00)
[2019-11-11] MEDS: InsuLIN REG 1unit/0.01ml Soln (100units/ml) SC SCH ×3 (05:59→17:00)
[2019-11-11 06:14] LABS: Basophils # (auto) 0.1 10 ^3/uL (0-0.2); Basophils % (auto) 0.7 % (0.0-2.0); Eosinophils # (auto) 0.2 10 ^3/uL (0-0.8); Eosinophils % (auto) 1.4 % (0.0-7.0); Hemoglobin 10.2 g/dL (12.2-16.2); Lymphocytes # (auto) 1.1 10 ^3/uL (0.4-5.4); Lymphocytes % (auto) 7.6 % (10.0-50.0); Mean Corpuscular Hemoglobin 31.2 pg (28.0-32.0); Mean Corpuscular Hgb Conc. 32.9 g/dL (32.0-36.0); Mean Corpuscular Volume 94.8 fL (80.0-100.0); Monocytes # (auto) 1.1 10 ^3/uL (0-1.3); Monocytes % (auto) 7.7 % (0.0-12.0); Neutrophils # (auto) 11.6 10 ^3/uL (1.6-8.6); Neutrophils % (auto) 82.6 % (37.0-80.0); Nucleated Red Blood Cells % 0.7 %; Platelet Count (auto) 327 10^3/uL (140-450); Red Blood Cells 3.27 10^6/uL (4.0-5.20); Red Cell Distribution Width 19.1 % (11.8-14.3)
[2019-11-11] MEDS: FUROSEMIDE 20 MG/2 ML VIAL IV SCH ×2 (06:19→18:14)
[2019-11-11 06:41] LABS: Albumin 2.3 g/dL (3.4-5.0); BUN/Creatinine Ratio 28.4; Bilirubin, Total 0.5 mg/dL (0.2-1.0); Calcium 8.9 mg/dL (8.5-10.1); Total Protein 5.8 g/dL (6.4-8.2)
[2019-11-11 09:19] VITALS: BP 148/89
[2019-11-11] MEDS: CARVEDILOL 12.5 MG TAB PO SCH ×2 (10:00→22:00)
[2019-11-11] MEDS: NIFEdipine ER 30 MG TAB PO SCH (10:00)
[2019-11-11] MEDS: CLOPIDOGREL BISULFATE 75 MG TAB PO SCH (10:00)
[2019-11-11] MEDS: ASPirin 81 mg TAB PO SCH (10:00)
[2019-11-11] MEDS: ENOXAPARIN SOD 60 MG/0.6 ML SYRINGE SC SCH (10:00)
[2019-11-11] MEDS: PANTOPRAZOLE 40 MG TAB PO SCH (10:00)
[2019-11-11] MEDS: SPIRONOLACTONE 25 MG TAB PO SCH (10:00)
[2019-11-11] MEDS: CEFEPIME 1 GM in SODIUM CHL 0.9% 50 ML IV SCH (11:50)
[2019-11-11 12:59] VITALS: BP 156/92
[2019-11-11] MEDS ORDERED: METOPROLOL TARTRATE 1MG/1ML-5ML VIAL IV ONE (16:45)
[2019-11-11 17:21] VITALS: BP 158/89
[2019-11-11] MEDS ORDERED: TPN PER PHARMACY 0 ML IV SCH (18:00)
[2019-11-11] MEDS ORDERED: AMINO ACID INFUSION IN D5W 2,000 ML IV NR (20:00)
[2019-11-11 22:00] VITALS: BP 157/88
[2019-11-11] MEDS: ATORVASTATIN 20 MG TAB PO SCH (22:00)
[2019-11-12] MEDS ORDERED: DEXTROSE (50%) 50ML SYRG IV SCH
[2019-11-12] MEDS: CARVEDILOL 12.5 MG TAB PO SCH ×2 (01:38→01:47)
[2019-11-12] MEDS: ALBUTEROL SULF 2.5 MG/0.5ML(0.5%) NEB SOLN NEB SCH ×6 (02:00→23:00)
[2019-11-12] MEDS: IPRATROPIUM BROM 0.5 MG/2.5ML INH SOL NEB SCH ×6 (02:33→23:00)
[2019-11-12 05:20] VITALS: BP 146/77
[2019-11-12] MEDS: FUROSEMIDE 20 MG/2 ML VIAL IV SCH ×2 (06:00→18:30)
[2019-11-12 06:55] LABS: Basophils # (auto) 0.1 10 ^3/uL (0-0.2); Basophils % (auto) 0.7 % (0.0-2.0); Eosinophils # (auto) 0.1 10 ^3/uL (0-0.8); Eosinophils % (auto) 0.6 % (0.0-7.0); Hematocrit 32.6 % (36.0-46.0); Hemoglobin 10.4 g/dL (12.2-16.2); Lymphocytes # (auto) 0.7 10 ^3/uL (0.4-5.4); Lymphocytes % (auto) 3.9 % (10.0-50.0); Mean Corpuscular Hemoglobin 31.7 pg (28.0-32.0); Mean Corpuscular Hgb Conc. 31.9 g/dL (32.0-36.0); Mean Corpuscular Volume 99.5 fL (80.0-100.0); Monocytes # (auto) 1.1 10 ^3/uL (0-1.3); Neutrophils # (auto) 15.9 10 ^3/uL (1.6-8.6); Neutrophils % (auto) 88.8 % (37.0-80.0); Platelet Count (auto) 332 10^3/uL (140-450); Red Blood Cells 3.27 10^6/uL (4.0-5.20); White Blood Cell 17.9 10^3/uL (4.4-10.8)
[2019-11-12 07:04] LABS: Potassium 3.8 mmol/L (3.5-5.1)
[2019-11-12] MEDS: InsuLIN REG 1unit/0.01ml Soln (100units/ml) SC SCH ×4 (07:08→18:00)
[2019-11-12] MEDS: ACCU-CHEK COMFORT CURVE STRIP VI SCH ×5 (07:09→23:32)
[2019-11-12 07:21] LABS: Red Cell Distribution Width 20.2 % (11.8-14.3)
[2019-11-12 07:43] LABS: Albumin 2.4 g/dL (3.4-5.0); BUN/Creatinine Ratio 28.2; Bilirubin, Total 0.6 mg/dL (0.2-1.0); Calcium 8.7 mg/dL (8.5-10.1); Magnesium 2.2 mg/dL (1.6-2.6); Phosphorus 4.8 mg/dL (2.5-4.90); Pre Albumin 20.1 mg/dL (20.0-40.0); Total Protein 5.7 g/dL (6.4-8.2)
[2019-11-12 09:00] VITALS: BP 156/83
[2019-11-12] MEDS: PANTOPRAZOLE 40 MG TAB PO SCH (10:00)
[2019-11-12] MEDS: NIFEdipine ER 30 MG TAB PO SCH (10:00)
[2019-11-12] MEDS: ENOXAPARIN SOD 60 MG/0.6 ML SYRINGE SC SCH (10:00)
[2019-11-12] MEDS: SPIRONOLACTONE 25 MG TAB PO SCH (10:00)
[2019-11-12] MEDS: CEFEPIME 1 GM in SODIUM CHL 0.9% 50 ML IV SCH (11:00)
[2019-11-12 13:00] VITALS: BP 157/81
[2019-11-12 13:14] LABS: INR 1.64 (0.9-1.15)
[2019-11-12] MEDS ORDERED: LIDOCAINE 1% (LOCAL ANESTH.) PF 5ml SDV ID ONE (14:15)
[2019-11-12] MEDS: SODIUM BICARBONATE 50ML VIAL 75 ML in SOD CHL 0.45% 1,000 ML IV SCH (15:00)
[2019-11-12 17:00] VITALS: BP 159/93
[2019-11-12] MEDS ORDERED: PPN PER PHARMACY IV NR ×8 (20:00)
[2019-11-12] MEDS: ATORVASTATIN 20 MG TAB PO SCH (21:44)
[2019-11-12] MEDS: SODIUM CHLOR 0.9% PF (SALINE LOCK) 10ML VIAL/SYR IV SCH (21:44)
[2019-11-12 22:00] VITALS: BP 166/97
[2019-11-13] VITALS (9 sets, daily range): BP systolic 135–159; BP diastolic 80–102
[2019-11-13] MEDS: InsuLIN REG 1unit/0.01ml Soln (100units/ml) SC SCH ×4 (00:02→18:00)
[2019-11-13] MEDS: ALBUTEROL SULF 2.5 MG/0.5ML(0.5%) NEB SOLN NEB SCH ×5 (02:36→23:21)
[2019-11-13] MEDS: IPRATROPIUM BROM 0.5 MG/2.5ML INH SOL NEB SCH ×5 (02:36→23:21)
[2019-11-13] MEDS: SODIUM BICARBONATE 50ML VIAL 75 ML in SOD CHL 0.45% 1,000 ML IV SCH ×2 (05:00→16:14)
[2019-11-13] MEDS: ACCU-CHEK COMFORT CURVE STRIP VI SCH ×3 (05:42→18:00)
[2019-11-13] MEDS: FUROSEMIDE 20 MG/2 ML VIAL IV SCH ×2 (05:42→18:24)
[2019-11-13 06:53] LABS: Basophils # (auto) 0.1 10 ^3/uL (0-0.2); Basophils % (auto) 0.8 % (0.0-2.0); Eosinophils # (auto) 0.2 10 ^3/uL (0-0.8); Eosinophils % (auto) 1.4 % (0.0-7.0); Hematocrit 27.8 % (36.0-46.0); Hemoglobin 9.3 g/dL (12.2-16.2); Lymphocytes # (auto) 0.6 10 ^3/uL (0.4-5.4); Lymphocytes % (auto) 3.7 % (10.0-50.0); Mean Corpuscular Hemoglobin 32.2 pg (28.0-32.0); Mean Corpuscular Hgb Conc. 33.3 g/dL (32.0-36.0); Mean Corpuscular Volume 96.5 fL (80.0-100.0); Monocytes # (auto) 1.1 10 ^3/uL (0-1.3); Monocytes % (auto) 6.8 % (0.0-12.0); Neutrophils # (auto) 14.4 10 ^3/uL (1.6-8.6); Neutrophils % (auto) 87.3 % (37.0-80.0); Nucleated Red Blood Cells % 0.6 %; Platelet Count (auto) 282 10^3/uL (140-450); Red Blood Cells 2.88 10^6/uL (4.0-5.20); Red Cell Distribution Width 19.8 % (11.8-14.3); White Blood Cell 16.5 10^3/uL (4.4-10.8)
[2019-11-13] MEDS: PANTOPRAZOLE 40 MG TAB PO SCH (10:00)
[2019-11-13] MEDS: CARVEDILOL 12.5 MG TAB PO SCH ×2 (10:00→22:42)
[2019-11-13] MEDS: NIFEdipine ER 30 MG TAB PO SCH (10:00)
[2019-11-13] MEDS: SPIRONOLACTONE 25 MG TAB PO SCH (10:00)
[2019-11-13] MEDS: SODIUM CHLOR 0.9% PF (SALINE LOCK) 10ML VIAL/SYR IV SCH ×2 (10:49→22:40)
[2019-11-13] MEDS: CEFEPIME 1 GM in SODIUM CHL 0.9% 50 ML IV SCH (10:50)
[2019-11-13] MEDS: ENOXAPARIN SOD 60 MG/0.6 ML SYRINGE SC SCH (10:51)
[2019-11-13 14:29] LABS: Albumin 2.1 g/dL (3.4-5.0); Calcium 8.5 mg/dL (8.5-10.1); Magnesium 1.9 mg/dL (1.6-2.6); Potassium 3.2 mmol/L (3.5-5.1)
[2019-11-13 14:32] LABS: Bilirubin, Total 0.6 mg/dL (0.2-1.0); Phosphorus 3.3 mg/dL (2.5-4.90); Total Protein 5.5 g/dL (6.4-8.2)
[2019-11-13] MEDS ORDERED: POTASSIUM CHL 20MEQ/100ML 100 ML IV ONE (15:30)
[2019-11-13] MEDS ORDERED: CLINIMIX PER PHARMACY IV NR (20:00)
[2019-11-13] MEDS: ATORVASTATIN 20 MG TAB PO SCH (22:42)
[2019-11-13] MEDS: dilTIAZem 25 MG/5 ML VIAL IV PRN (23:16)
[2019-11-14] MEDS: IPRATROPIUM BROM 0.5 MG/2.5ML INH SOL NEB SCH ×6 (02:35→22:42)
[2019-11-14] MEDS: ALBUTEROL SULF 2.5 MG/0.5ML(0.5%) NEB SOLN NEB SCH ×6 (02:35→22:42)
[2019-11-14 05:00] VITALS: BP 138/85
[2019-11-14] MEDS: InsuLIN REG 1unit/0.01ml Soln (100units/ml) SC SCH ×5 (06:00→23:54)
[2019-11-14] MEDS: SODIUM BICARBONATE 50ML VIAL 75 ML in SOD CHL 0.45% 1,000 ML IV SCH ×2 (06:12→20:56)
[2019-11-14] MEDS: FUROSEMIDE 20 MG/2 ML VIAL IV SCH ×2 (06:14→18:36)
[2019-11-14] MEDS: ACCU-CHEK COMFORT CURVE STRIP VI SCH ×5 (06:14→23:40)
[2019-11-14 06:56] LABS: Albumin 1.9 g/dL (3.4-5.0); Calcium 8.2 mg/dL (8.5-10.1); Magnesium 1.7 mg/dL (1.6-2.6)
[2019-11-14 07:01] LABS: Bilirubin, Total 0.5 mg/dL (0.2-1.0); Phosphorus 2.8 mg/dL (2.5-4.90)
[2019-11-14 07:03] LABS: BUN/Creatinine Ratio 31.7
[2019-11-14 09:00] VITALS: BP 139/77
[2019-11-14 09:29] VITALS: BP 138/85
[2019-11-14] MEDS: NIFEdipine ER 30 MG TAB PO SCH (10:00)
[2019-11-14] MEDS: SPIRONOLACTONE 25 MG TAB PO SCH (10:00)
[2019-11-14] MEDS: CARVEDILOL 12.5 MG TAB PO SCH ×2 (10:00→21:28)
[2019-11-14] MEDS: PANTOPRAZOLE 40 MG TAB PO SCH (10:00)
[2019-11-14] MEDS: ENOXAPARIN SOD 60 MG/0.6 ML SYRINGE SC SCH (10:27)
[2019-11-14] MEDS: SODIUM CHLOR 0.9% PF (SALINE LOCK) 10ML VIAL/SYR IV SCH ×2 (10:27→21:27)
[2019-11-14] MEDS: POTASSIUM CHL 20MEQ/100ML 100 ML IV SCH ×2 (10:28→17:11)
[2019-11-14] MEDS ORDERED: MAGNESIUM SULFATE 1GM/100ML 100 ML IV ONE (11:15)
[2019-11-14] MEDS: CEFEPIME 1 GM in SODIUM CHL 0.9% 50 ML IV SCH (11:56)
[2019-11-14] MEDS ORDERED: METOPROLOL TARTRATE 1MG/1ML-5ML VIAL IV ONE (12:45)
[2019-11-14 13:00] VITALS: BP 147/97
[2019-11-14] MEDS ORDERED: AMIODARONE HCL 150 MG in D5W 5% 100 ML IV ONE (14:00)
[2019-11-14] MEDS ORDERED: AMIODARONE 450mg/250ml AE 250 ML IV ONE (14:15)
[2019-11-14] MEDS ORDERED: AMIODARONE 450mg/250ml AE 250 ML IV SCH ×2 (14:15→20:15)
[2019-11-14 16:30] VITALS: BP 147/75
[2019-11-14] MEDS ORDERED: POTASSIUM CHL 20MEQ/100ML 100 ML IV ONE (16:30)
[2019-11-14 16:39] LABS: Hemoglobin 8.3 g/dL (12.2-16.2)
[2019-11-14 16:41] LABS: Hematocrit 25.1 % (36.0-46.0)
[2019-11-14] MEDS ORDERED: TPN PER PHARMACY IV NR ×11 (20:00)
[2019-11-14] MEDS: ATORVASTATIN 20 MG TAB PO SCH (21:28)
== END 2019-11-15 01:03 | disposition expired | DRG 871 ==
LOC: EDBD 20:02 → ER 20:22 → TELE 20:23 → TELE-CENTR 23:58 → TELE-WESTW 11-08 04:40
PROVIDERS: ADMIT Nurse Practitioner; ATTEND Family Medicine
PROC: 30233N1 Transfusion of Nonautologous Red Blood Cells into Peripheral Vein, Percutaneous Approach (ICD-10-PCS; 2019-11-09)
PROC: 02HV33Z Insertion of Infusion Device into Superior Vena Cava, Percutaneous Approach (ICD-10-PCS; principal; 2019-11-12)
PROC: 3E0336Z Introduction of Nutritional Substance into Peripheral Vein, Percutaneous Approach (ICD-10-PCS; 2019-11-12)
DX: A41.9 Sepsis, unspecified organism (principal); G93.41 Metabolic encephalopathy; I50.43 Acute on chronic combined systolic (congestive) and diastolic (congestive) heart failure; N18.6 End stage renal disease; I21.A1 Myocardial infarction type 2; N39.0 Urinary tract infection, site not specified; J44.1 Chronic obstructive pulmonary disease with (acute) exacerbation; N17.9 Acute kidney failure, unspecified; I13.2 Hypertensive heart and chronic kidney disease with heart failure and with stage 5 chronic kidney disease, or end stage renal disease; E11.21 Type 2 diabetes mellitus with diabetic nephropathy; E11.22 Type 2 diabetes mellitus with diabetic chronic kidney disease; E78.00 Pure hypercholesterolemia, unspecified; E66.9 Obesity, unspecified; E11.40 Type 2 diabetes mellitus with diabetic neuropathy, unspecified; D63.8 Anemia in other chronic diseases classified elsewhere; E78.5 Hyperlipidemia, unspecified; I25.10 Atherosclerotic heart disease of native coronary artery without angina pectoris; R65.20 Severe sepsis without septic shock; I48.91 Unspecified atrial fibrillation; I08.0 Rheumatic disorders of both mitral and aortic valves; F41.9 Anxiety disorder, unspecified; E03.9 Hypothyroidism, unspecified; E87.6 Hypokalemia; Z66 Do not resuscitate; Z79.01 Long term (current) use of anticoagulants; Z80.0 Family history of malignant neoplasm of digestive organs; Z99.81 Dependence on supplemental oxygen; Z95.1 Presence of aortocoronary bypass graft; Z79.4 Long term (current) use of insulin; Z95.5 Presence of coronary angioplasty implant and graft; Z86.718 Personal history of other venous thrombosis and embolism; Z80.1 Family history of malignant neoplasm of trachea, bronchus and lung; Z80.3 Family history of malignant neoplasm of breast; Z80.41 Family history of malignant neoplasm of ovary; Z81.8 Family history of other mental and behavioral disorders; Z80.8 Family history of malignant neoplasm of other organs or systems; Z82.0 Family history of epilepsy and other diseases of the nervous system; Z82.49 Family history of ischemic heart disease and other diseases of the circulatory system; Z82.5 Family history of asthma and other chronic lower respiratory diseases; Z82.62 Family history of osteoporosis; Z83.3 Family history of diabetes mellitus; Z82.3 Family history of stroke; Z68.24 Body mass index [BMI] 24.0-24.9, adult
CPT/HCPCS: 36415; 36569; 36600; 70450; 71045; 78582; 80048; 80053; 80202; 81001; 82040; 82270; 82553; 82565; 82805; 82962; 83605; 83735; 83880; 84100; 84478; 84484; 85007; 85014; 85018; 85025; 85027; 85379; 85384; 85610; 85730; 86850; 86900; 86901; 86920; 87040; 87077; 87081; 87086; 87186; 93005; 93970; 94640; 96361; 96365; 96367; 96375; 97530; 99291; G0378; J0696; J1815; J2543; J3480; J7060